=== PATIENT | male | born 1955 | race Caucasian/White ===

== ENCOUNTER 2019-11-16 10:36 | Outpatient (RCR) | payer MEDICARE, OTHER, SELFPAY ==
--- NOTE | 2019-11-16 18:43 | ONC CON_ITS ---
Dr. Valadez New Patient Note Patient: Inocencio Mata Unit #: [id number]: 1955 Dicatated By: Saud Valadez M.D.Date of Visit: Nov 16, 2019 Onc MED New Patient/Consult Referring Physician: Dr. Saud Carpenter Iii, M.D. Chief Complaint: Pancreatic cancer/pulmonary nodule. History of Present Illness: This is a 63-year-old man with adenocarcinoma involving the tail of the pancreas, stage at least T3, N1 by clinical evaluation. He also has CT evidence of a right upper lobe pulmonary nodule. He has hypertension, hyperlipidemia, and coronary artery disease. In the past he had required esophageal dilatation for esophageal stricture, and the procedure had recently been repeated at [facility] due to recurrence of difficulty swallowing. On 10/19/2019 he presented to the emergency room with fairly abrupt onset of severe pain in the left side of the abdomen and back. His abdominal CT scan showed a focal area of low-attenuation enlargement within the distal tail of the pancreas measuring 4.3 cm, consistent with acute pancreatitis or pancreatic neoplasm. There were findings compatible with splenic infarct, and there was suspected splenic vein thrombosis. Further evaluation with CT angiogram of the chest, abdomen, and pelvis showed a masslike low-attenuation lesion in the tail of the pancreas measuring 4.1 x 1.4 x 2.3 cm, felt to be most consistent with malignancy. Also noted were enlarged retrogastric, peripancreatic, and splenic hilar lymph nodes. A 1 cm focus of hyperattenuation in the liver was suggestive of possible metastasis. 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 The chest showed a spiculated noncalcified right upper lobe mass with eccentric cavitation measuring 1.7 x 0.9 x 2.0 cm, suspicious for malignancy. Calcified mediastinal and left hilar lymph nodes were consistent with prior granulomatous disease. He was referred to Dr. Carpenter in [place]. On 10/27/2019 he underwent ERCP by Dr. Jose New. A poorly demarcated 3 cm mass was noted in the pancreatic tail and several enlarged lymph nodes were noted in the periportal region. In aggregate these measured greater than 2.3 cm. FNA biopsy of the pancreatic mass did confirm adenocarcinoma. FNA biopsy of periportal lymph node was negative for metastatic carcinoma. In the context of the CT findings, he was recommended to undergo neoadjuvant chemotherapy prior to definitive surgery. He is seen now for further management. He has not been feeling good generally. He continues to have significant pain in the left flank area and in the left side of the back. He also has some pain in the lower mid abdomen. He has been managing it with either Tylenol or hydrocodone/APAP. He has had a significant decline in his energy/activity tolerance, and at this point he is doing very little work activity. ECOG score is 2. He complains that he has no appetite and that he is making himself eat. He has had a weight loss of 30 pounds since summer. He has occasional fever at night, up to 101 degrees. He sometimes has sweating at night, though he otherwise always feels cold. His swallowing is somewhat better following his recent dilatation procedure, but not completely normal. He has occasional cough. He does not complain of shortness of breath or chest pain. He has mild nausea at times and he also complains of postprandial bloating. He recently has been having some constipation. He has no complaints with bladder function. He has no significant joint or bone pain. He does have a history of severe headaches, but those have been managed with a combination of topiramate and meloxicam. He does get numbness in his left hand with cold exposure. He has no other focal neurologic symptoms. Past Medical History: His medical history includes coronary artery disease, gout, hyperlipidemia, hypertension, and migraine headaches. He has a history of esophageal stricture. Past Surgical History: He underwent ERCP with FNA biopsy of pancreatic mass and periportal lymph node on 10/27/2019, and he underewent placement of Port-A-Cath venous access device. He underwent coronary angioplasty/stent placement in 2006. Medications: Allopurinol 1 Tablet (of 100 mg) Oral daily, Eliquis 1 Tablet (of 5 mg) Oral b.i.d., HYDROcodone-Acetaminophen 1 Tablet (of 5-325 mg) Oral q 6 hours PRN, Lisinopril 1 Tablet (of 40 mg) Oral daily, Meloxicam 1 Tablet (of 15 mg) Oral daily, Metoprolol Tartrate 1 Tablet (of 50 mg) Oral daily, Ondansetron HCl 1 Tablet (of 4 mg) Oral PRN, Simvastatin 1 Tablet (of 40 mg) Oral daily, tiZANidine HCl 1 Tablet (of 4 mg) Oral PRN, Topiramate 1 Tablet (of 100 mg) Oral b.i.d. Allergies: No Known Allergies. Social History: Mr. 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 He has a history of smoking 1 pack of cigarettes daily for 50 years. Alcohol use is estimated at 2 beers daily. He was a heavy drinker in the past, but he cut down years ago . Family History: Father was found at age 91, thought to be heart related. He had been treated for lung cancer. His mother had Hodgkin's lymphoma in association with rheumatoid arthritis. She of unrelated causes. A brother at age 38, also presumably of heart disease. Another brother has been treated for colon cancer. A maternal aunt has breast cancer. Review Of Symptoms: Constitutional - His energy is low. 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 His appetite is poor and his weight is stable. He has occasional fevers. He has hot flashes and sweating at night. ECOG score is 2, Eyes - No change in vision, ENMT - He is hard of hearing. He has tinnitus. No sinus congestion/drainage. No mouth sores. No sore throat. He has trouble with food getting caught, especially meat, Hematologic/Lymphatic - He bruises easily, Respiratory - No shortness of breath. No cough. No pleuritic pain or hemoptysis, Cardiovascular - No angina pain. No palpitations, Gastrointestinal - He feels bloated and queasy after eating. No heartburn or acid reflux. He has some constipation. No blood in the stool or black stools. He has pain in the lower part of his abdomen, Genitourinary (M) - No dysuria or hematuria. He has urinary frequency. No urgency or incontinence, Musculoskeletal - He has pain in his lower back on the left side, Integumentary - No skin complications, Neurologic - He has a history of severe headaches. No dizziness. He has numbness in his left hand when he gets out in the cold, Psychiatric - He has anxiety and depression. No insomnia. Vital Signs: Performed on Nov 16, 2019 11:22: 2, 20.59, 1.73 sq.m, 68.00 in, 96 %, 69 /min, 22 /min, 168/97 mm(hg) (HIGH), 98.0 F (LOW), and 135.4 lbs (HIGH). Physical Examination: Constitutional - He appears somewhat weak generally, Eyes - Sclerae nonicteric. Conjunctivae clear, ENMT - No lesions noted in the oral cavity, Neck - No mass or thyromegaly, Hematologic/Lymphatic - No cervical, clavicular, or axillary adenopathy, Respiratory - Lungs are clear with diminished air movement bilaterally, Cardiovascular - Heart rhythm is regular. There is no murmur, gallop, or rub noted. There is no carotid bruit noted, Abdomen - Soft with mild tenderness in the mid to lower abdomen. Liver is not enlarged. Spleen is not palpable. There is no abdominal mass or ascites noted and there is no inguinal adenopathy, Back/Spine - No spine or CVA tenderness noted, Extremities - No edema. Pedal pulses are palpable bilaterally. There is a diminished left radial pulse on the left compared to the right, Integumentary - No rashes. No suspicious skin lesions noted, Neurologic - No focal neurologic deficits noted. Lab/Imaging: His laboratory studies from 10/19/2019 included CBC showing hemoglobin 17.5 g, white blood cell count 11,600, and platelet count 290,000. Comprehensive metabolic profile showed normal renal function with BUN 12 and creatinine 0.8 mg/dL. Bilirubin was borderline at 1.1 mg/dL. Liver enzymes were normal. Albumin was normal at 4.2 g/dL. Impression: 1. Patient with adenocarcinoma involving the tail of the pancreas, confirmed by FNA biopsy on 10/27/2019. By clinical evaluation his disease appears to be at least stage T3, N1, though FNA biopsy of periportal lymph node was negative. 2. 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 3. There is CT evidence of a right upper lobe spiculated pulmonary nodule, which is suspicious for neoplasm, but more likely second primary neoplasm rather than metastasis. 4. There is also a possible hepatic metastasis by CT. 5. He has marginal performance status with weight loss and declining activity tolerance. His other medical illnesses include: 6. Hypertension. 7. Hyperlipidemia. 8. Coronary artery disease with previous angioplasty/stent placement. 9. History of gout. 10. History of esophageal stricture with recent EGD/dilatation procedure. Plan: The CT findings and images were reviewed with the patient and his , and we also reviewed the biopsy results. We discussed the clinical implications. He has biopsy-proven adenocarcinoma involving the tail of the pancreas. There is likely regional lymph node involvement, though it was not able to be confirmed by biopsy. There is a possible metastatic lesion in the liver and there is a right upper lobe pulmonary nodule which appears neoplastic, but would more likely be a second primary malignancy rather than a metastasis, in my opinion. 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 He has been recommended to begin neoadjuvant chemotherapy. Given his marginal performance status, he is clearly not an appropriate candidate for the FOLFIRINOX regimen. As such, I will plan an initial course of treatment with 4 cycles of gemcitabine/Abraxane. I reviewed anticipated side effects including the potential for nausea/vomiting, fatigue, alopecia, low blood counts, and neuropathy, among others. However, prior to starting treatment I would like to schedule him for staging PET/CT. I also will want to check a baseline echocardiogram. In addition, I will request a next generation sequencing study on the biopsy, and I also will request screening for BRCA, subject to verification of insurance coverage. Signed By: Saud Valadez M.D. <<Signature on File>>
== END 2019-12-06 12:26 | disposition home or self-care (01) ==
LOC: ONCMED 10:36
PROVIDERS: Family Provider Family Medicine; PCP Family Medicine; Visit Provider Internal Medicine Medical Oncology
DX: C25.2 Malignant neoplasm of tail of pancreas (principal); R91.8 Other nonspecific abnormal finding of lung field; I70.8 Atherosclerosis of other arteries; I74.8 Embolism and thrombosis of other arteries; G89.3 Neoplasm related pain (acute) (chronic); K59.00 Constipation, unspecified; E78.5 Hyperlipidemia, unspecified; I10 Essential (primary) hypertension; M10.9 Gout, unspecified; I25.10 Atherosclerotic heart disease of native coronary artery without angina pectoris; F17.210 Nicotine dependence, cigarettes, uncomplicated; Z72.89 Other problems related to lifestyle; G43.709 Chronic migraine without aura, not intractable, without status migrainosus; Z79.891 Long term (current) use of opiate analgesic; Z79.01 Long term (current) use of anticoagulants; Z95.5 Presence of coronary angioplasty implant and graft
CPT/HCPCS: 99205

== ENCOUNTER 2019-11-22 08:56 | Outpatient (RCR) | payer MEDICARE, OTHER, SELFPAY ==
--- NOTE | 2019-11-22 08:45 | USCV_ITS ---
Adolfo Inocencio Age: 63 Gender: M : 1955 Exam Date: 11/22/2019 09:17 Ordering Phys: Saud Valadez MD Technologist: Lucinda Price [place] [facility] [place]: ASSESS LVF, PANCREATIC CA, HIGH RISK MEDS. BP: 164 / 73 HR: 48 Rhythm: Sinus Technical Quality: Suboptimal MEASUREMENTS (Male / Female) Normal Values 2D ECHO LV Diastolic Diameter PLAX 4.5 cm 4.2 - 5.9 / 3.9 - 5.3 cm LV Systolic Diameter PLAX 3.0 cm IVS Diastolic Thickness 0.8 cm 0.6 - 1.0 / 0.6 - 0.9 cm IVS Systolic Thickness 1.3 cm LVPW Diastolic Thickness 1.0 cm 0.6 - 1.0 / 0.6 - 0.9 cm LVPW Systolic Thickness 1.5 cm LVOT Diameter 2.1 cm LV Ejection Fraction 2D Teich 61.2 % LV Ejection Fraction MOD 2C 58.5 % LV Ejection Fraction 2C AL 61.1 % LA Diameter 2.8 cm LA Width 2.5 cm LA Height 4.0 cm RA Width 2.6 cm RA Height 4.2 cm Aorta at Sinotubular Diameter 3.2 cm M-MODE LV Diastolic Diameter MM 5.4 cm 4.2 - 5.9 / 3.9 - 5.3 cm LV Systolic Diameter MM 3.4 cm LV Ejection Fraction MM Teich 66.2 % IVS Diastolic Thickness MM 1.0 cm 0.6 - 1.0 / 0.6 - 0.9 cm IVS Systolic Thickness MM 1.5 cm LVPW Diastolic Thickness MM 0.8 cm 0.6 - 1.0 / 0.6 - 0.9 cm LVPW Systolic Thickness MM 1.5 cm Aortic Annulus Diameter 3.7 cm LA Ao Ratio MM 0.8 MV E Point Septal Separation 0.5 cm DOPPLER AV Peak Velocity 102.0 cm/s LVOT Peak Velocity 67.0 cm/s AV Area Cont Eq vti 2.2 cm squared AV Area Cont Eq pk 2.2 cm squared MV Area PHT 2.9 cm squared Mitral E to A Ratio 0.8 MV E' Velocity 10.0 cm/s Mitral E to MV E' Ratio 9.5 Mitral E to LV E' Lateral Ratio 8.3 Mitral E to LV E' Septal Ratio 11.1 TV Peak E Velocity 46.0 cm/s Right Atrial Pressure 3.0 mmHg PV Peak Velocity 101.0 cm/s RV Acceleration Time 0.1 s RV Ejection Time 0.3 s RV AcT/ET 0.4 FINDINGS Left Ventricle Normal left ventricular size, systolic function and wall thickness, with no diagnostic regional wall motion abnormalities. Left ventricular ejection fraction is estimated at 60-65 %. Normal diastolic function. Right Ventricle Normal right ventricular size and systolic function. Right Atrium Normal right atrial size. Right atrial pressure estimated at 3 mmHg. Left Atrium Normal left atrial size. Mitral Valve Structurally normal mitral valve. No mitral valve stenosis. No significant mitral valve regurgitation. Aortic Valve Structurally normal trileaflet aortic valve. No aortic valve stenosis. Mild aortic valve regurgitation. Tricuspid Valve Structurally normal tricuspid valve. Trace tricuspid valve regurgitation. Pulmonic Valve Pulmonic valve not well visualized. No pulmonary valve stenosis. No significant pulmonary valve regurgitation. Pericardium No pericardial effusion. Aorta Normal-sized aortic root. CONCLUSIONS 1. This is a technically difficult study. 2. Normal left ventricular size, systolic function and wall thickness, with no regional wall motion abnormalities. Left ventricular ejection fraction is estimated at 60-65 %. Normal diastolic function. 3. Normal right ventricular size and systolic function. 4. Right atrial pressure estimated at 3 mmHg. 4. Mild aortic valve regurgitation. 5. When compared to previous echocardiogram dated 12/23/2018, there may not have been any significant change. Vonda Webster MD (Electronically Signed) Final Date: 22 November 2019 19:38 S
== END 2019-12-06 12:26 | disposition home or self-care (01) ==
LOC: RAD 08:56
PROVIDERS: Family Provider Family Medicine; PCP Family Medicine; Visit Provider Internal Medicine Medical Oncology
DX: C25.2 Malignant neoplasm of tail of pancreas (principal); Z79.899 Other long term (current) drug therapy
CPT/HCPCS: 93306

== ENCOUNTER 2019-12-14 05:41 | Outpatient (RCR) | payer MEDICARE, OTHER, SELFPAY ==
[2019-11-23 10:04] LABS: Basophils % 0.4 %; Eosinophils # 0.4 10^3/uL (0.0-0.8); Eosinophils % 3.8 %; Hematocrit 44.6 % (42.0-52.0); Hemoglobin 14.6 g/dL (11.7-16.6); Lymphocytes # 2.4 10^3/uL (0.8-4.8); Lymphocytes % 21.2 %; Mean Corpuscular HGB Conc 32.7 g/dL (30.0-36.0); Mean Corpuscular Hemoglobin 33.8 pg (28.0-34.0); Mean Corpuscular Volume 103.2 fL (80-94); Mean Platelet Volume 10.3 fL (7.4-10.4); Monocytes # 1.1 10^3/uL (0.2-0.9); Monocytes % 9.5 %; Neutrophils # 7.3 10^3/uL (1.8-7.7); Neutrophils % 64.7 %; Nucleated Red Blood Cells % 0 %; Platelet Count 464 10^3/cmm (130-400); Red Blood Count 4.32 10^6/uL (4.1-5.3); Red Cell Distribution Width 13.4 % (12.1-15.1); White Blood Count 11.2 10^3/uL (4.0-10.0)
[2019-11-23 10:31] LABS: Cancer Antigen 19 9 34.94 U/mL (0-35); Carcinoembryonic Antigen 3.5 ng/mL (0.0-4.7)
[2019-11-23 10:42] LABS: Alanine Aminotransferase 10 U/L (0-41); Albumin Level 3.8 g/dL (3.5-5.2); Alkaline Phosphatase 74 IU/L (40-130); Anion Gap 14.9 (5-19); Aspartate Amino Transferase 14 U/L (0-40); Blood Urea Nitrogen 14 mg/dL (8-23); Calcium 9.2 mg/Dl (8.8-10.2); Carbon Dioxide 22 mmol/L (22-29); Chloride 107 mmol/L (98-107); Globulin 2.7 g/dL (1.3-4.6); Glomerular Filtration Rate 113.2 mL/min (90-130); Glucose 96 mg/dL (74-106); Potassium 3.9 mmol/L (3.5-5.1); Sodium 140 mmol/L (136-145); Total Bilirubin 0.5 mg/dL (0.15-1.2); Total Protein 6.5 g/dL (6.6-8.7)
[2019-11-23] MEDS: sodium chloride 0.9% 250 ML 75 ML IV (11:15)
[2019-11-28 13:33] LABS: Basophils % 0.3 %; Eosinophils # 0.1 10^3/uL (0.0-0.8); Eosinophils % 1.6 %; Hematocrit 41.4 % (42.0-52.0); Hemoglobin 13.6 g/dL (11.7-16.6); Lymphocytes # 0.7 10^3/uL (0.8-4.8); Lymphocytes % 18.7 %; Mean Corpuscular HGB Conc 32.9 g/dL (30.0-36.0); Mean Corpuscular Hemoglobin 32.7 pg (28.0-34.0); Mean Corpuscular Volume 99.5 fL (80-94); Monocytes % 0.5 %; Neutrophils % 78.6 %; Nucleated Red Blood Cells % 0 %; Platelet Count 282 10^3/cmm (130-400); Red Blood Count 4.16 10^6/uL (4.1-5.3); Red Cell Distribution Width 13.3 % (12.1-15.1); White Blood Count 3.9 10^3/uL (4.0-10.0)
[2019-11-28 13:47] LABS: Alanine Aminotransferase 37 U/L (0-41); Albumin Level 3.8 g/dL (3.5-5.2); Alkaline Phosphatase 65 IU/L (40-130); Anion Gap 16.1 (5-19); Aspartate Amino Transferase 36 U/L (0-40); Blood Urea Nitrogen 15 mg/dL (8-23); Calcium 9.4 mg/Dl (8.8-10.2); Carbon Dioxide 23 mmol/L (22-29); Chloride 102 mmol/L (98-107); Globulin 2.7 g/dL (1.3-4.6); Glucose 129 mg/dL (74-106); Potassium 4.1 mmol/L (3.5-5.1); Sodium 137 mmol/L (136-145); Total Bilirubin 0.9 mg/dL (0.15-1.2); Total Protein 6.5 g/dL (6.6-8.7)
[2019-11-28 15:26] LABS: Slide Review Slide Review Perform
[2019-11-30] MEDS: sodium chloride 0.9% 250 ML 75 ML IV (15:17)
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
[2019-12-06 12:25] LABS: Basophils % 0.6 %; Eosinophils % 2.6 %; Hematocrit 41.1 % (42.0-52.0); Hemoglobin 13.6 g/dL (11.7-16.6); Lymphocytes % 66.9 %; Mean Corpuscular HGB Conc 33.1 g/dL (30.0-36.0); Mean Corpuscular Hemoglobin 33.4 pg (28.0-34.0); Mean Platelet Volume 12.2 fL (7.4-10.4); Monocytes % 0.6 %; Neutrophils % 28.7 %; Nucleated Red Blood Cells % 0 %; Platelet Count 87 10^3/cmm (130-400); Red Blood Count 4.07 10^6/uL (4.1-5.3); Red Cell Distribution Width 12.8 % (12.1-15.1); White Blood Count 1.5 10^3/uL (4.0-10.0)
[2019-12-06 13:43] LABS: Neutrophils # 0.4 10^3/uL (1.8-7.7)
[2019-12-06 14:05] LABS: Alanine Aminotransferase 19 U/L (0-41); Albumin Level 3.3 g/dL (3.5-5.2); Alkaline Phosphatase 59 IU/L (40-130); Anion Gap 17.4 (5-19); Aspartate Amino Transferase 16 U/L (0-40); Blood Urea Nitrogen 19 mg/dL (8-23); Calcium 9.3 mg/Dl (8.8-10.2); Carbon Dioxide 22 mmol/L (22-29); Chloride 103 mmol/L (98-107); Globulin 3.1 g/dL (1.3-4.6); Glomerular Filtration Rate 113.2 mL/min (90-130); Glucose 107 mg/dL (74-106); Potassium 3.4 mmol/L (3.5-5.1); Sodium 139 mmol/L (136-145); Total Bilirubin 0.9 mg/dL (0.15-1.2); Total Protein 6.4 g/dL (6.6-8.7)
[2019-12-08 10:11] LABS: Basophils # 0.1 10^3/uL (0.0-0.1); Basophils % 0.7 %; Eosinophils # 0.1 10^3/uL (0.0-0.8); Eosinophils % 1.4 %; Hematocrit 35.5 % (42.0-52.0); Lymphocytes # 1.5 10^3/uL (0.8-4.8); Lymphocytes % 15.2 %; Mean Corpuscular HGB Conc 33.8 g/dL (30.0-36.0); Mean Corpuscular Volume 97.5 fL (80-94); Mean Platelet Volume 11.7 fL (7.4-10.4); Monocytes # 0.3 10^3/uL (0.2-0.9); Monocytes % 3.2 %; Neutrophils # 7.5 10^3/uL (1.8-7.7); Neutrophils % 77.4 %; Nucleated Red Blood Cells % 0 %; Platelet Count 56 10^3/cmm (130-400); Red Blood Count 3.64 10^6/uL (4.1-5.3); Red Cell Distribution Width 12.5 % (12.1-15.1); White Blood Count 9.7 10^3/uL (4.0-10.0)
[2019-12-08 10:51] LABS: Slide Review Slide Review Perform
[2019-12-13 10:52] LABS: Basophils # 0.1 10^3/uL (0.0-0.1); Basophils % 0.5 %; Eosinophils # 0.4 10^3/uL (0.0-0.8); Hematocrit 35.5 % (42.0-52.0); Hemoglobin 11.6 g/dL (11.7-16.6); Lymphocytes % 25.1 %; Mean Corpuscular HGB Conc 32.7 g/dL (30.0-36.0); Mean Corpuscular Volume 101.1 fL (80-94); Mean Platelet Volume 11.2 fL (7.4-10.4); Monocytes # 1.4 10^3/uL (0.2-0.9); Monocytes % 11.7 %; Neutrophils # 3.9 10^3/uL (1.8-7.7); Nucleated Red Blood Cells # 0.1 /100WBC; Platelet Count 500 10^3/cmm (130-400); Red Blood Count 3.51 10^6/uL (4.1-5.3); Red Cell Distribution Width 13.8 % (12.1-15.1); White Blood Count 12.1 10^3/uL (4.0-10.0)
[2019-12-13 11:13] LABS: Alanine Aminotransferase 11 U/L (0-41); Alkaline Phosphatase 79 IU/L (40-130); Anion Gap 12.8 (5-19); Aspartate Amino Transferase 18 U/L (0-40); Blood Urea Nitrogen 13 mg/dL (8-23); Calcium 8.9 mg/dL (8.5-10.5); Carbon Dioxide 26 mmol/L (22-29); Chloride 105 mmol/L (98-107); Globulin 3.3 g/dL (1.3-4.6); Glomerular Filtration Rate 55.4 mL/min (90-130); Glucose 109 mg/dL (74-106); Potassium 3.8 mmol/L (3.5-5.1); Sodium 140 mmol/L (136-145); Total Bilirubin 0.2 mg/dL (0.15-1.2); Total Protein 6.3 g/dL (6.6-8.7)
[2019-12-13 11:40] LABS: Slide Review Slide Review Perform
[2019-12-13 11:42] LABS: Absolute Eosinophils 0.2 10^3/cmm (0.0-0.7); Absolute Segmented Neutrophil 3.1 10/cmm (1.6-7.1); Band Neutrophils Absolute 2.2 10^3/cmm (0.0-1.2); Corrected White Blood Count 11.6 10^3/cmm (4.8-10.8); Eosinophils 2 %; Lymphocytes 28 %; Platelet Estimate Increased (Normal); Segmented Neutrophils 26 %; Total Cells Counted 100 (0-100)
[2019-12-14 12:44] LABS: Basophils # 0.1 10^3/uL (0.0-0.1); Basophils % 0.5 %; Eosinophils # 0.5 10^3/uL (0.0-0.8); Eosinophils % 3.6 %; Hemoglobin 11.4 g/dL (11.7-16.6); Lymphocytes # 3.3 10^3/uL (0.8-4.8); Lymphocytes % 24.6 %; Mean Corpuscular HGB Conc 33.5 g/dL (30.0-36.0); Mean Corpuscular Hemoglobin 33.3 pg (28.0-34.0); Mean Corpuscular Volume 99.4 fL (80-94); Mean Platelet Volume 10.7 fL (7.4-10.4); Monocytes # 1.3 10^3/uL (0.2-0.9); Neutrophils # 6.2 10^3/uL (1.8-7.7); Nucleated Red Blood Cells % 0.2 %; Platelet Count 640 10^3/cmm (130-400); Red Blood Count 3.42 10^6/uL (4.1-5.3); White Blood Count 13.2 10^3/uL (4.0-10.0)
[2019-12-14 12:58] LABS: Alanine Aminotransferase 9 U/L (0-41); Albumin Level 2.9 g/dL (3.5-5.2); Alkaline Phosphatase 75 IU/L (40-130); Anion Gap 14.1 (5-19); Aspartate Amino Transferase 15 U/L (0-40); Blood Urea Nitrogen 14 mg/dL (8-23); Calcium 8.8 mg/dL (8.5-10.5); Carbon Dioxide 24 mmol/L (22-29); Chloride 108 mmol/L (98-107); Globulin 3.3 g/dL (1.3-4.6); Glomerular Filtration Rate 84.7 mL/min (90-130); Glucose 111 mg/dL (74-106); Potassium 4.1 mmol/L (3.5-5.1); Sodium 142 mmol/L (136-145); Total Bilirubin 0.2 mg/dL (0.15-1.2); Total Protein 6.2 g/dL (6.6-8.7)
[2019-12-14 13:51] LABS: Slide Review Slide Review Perform
[2019-12-14] MEDS: sodium chloride 0.9% 250 ML 75 ML IV (13:55)
== END 2019-12-15 23:59 | disposition home or self-care (01) ==
LOC: ONCMED 05:41
PROVIDERS: Nurse Practitioner; Family Provider Family Medicine; PCP Family Medicine; Visit Provider Internal Medicine Medical Oncology
DX: Z51.11 Encounter for antineoplastic chemotherapy (principal); C25.2 Malignant neoplasm of tail of pancreas; D70.1 Agranulocytosis secondary to cancer chemotherapy; T45.1X5A Adverse effect of antineoplastic and immunosuppressive drugs, initial encounter; R50.9 Fever, unspecified; R91.1 Solitary pulmonary nodule; I10 Essential (primary) hypertension; E78.5 Hyperlipidemia, unspecified; I25.10 Atherosclerotic heart disease of native coronary artery without angina pectoris; M10.9 Gout, unspecified; F17.210 Nicotine dependence, cigarettes, uncomplicated; F10.20 Alcohol dependence, uncomplicated; I35.1 Nonrheumatic aortic (valve) insufficiency; Z79.01 Long term (current) use of anticoagulants; Z95.5 Presence of coronary angioplasty implant and graft
CPT/HCPCS: 36415; 36591; 80053; 82378; 85007; 85025; 86301; 96367; 96372; 96413; 96417; 99214; J1100; J1442; J2405; J2469; J2704; J3490; J7050; J9201; J9264

== ENCOUNTER 2020-01-10 07:05 | Outpatient (RCR) | payer MEDICARE, OTHER, SELFPAY ==
[2019-12-20 14:05] LABS: Basophils % 0.6 %; Eosinophils # 0.1 10^3/uL (0.0-0.8); Eosinophils % 1.2 %; Hemoglobin 11.4 g/dL (11.7-16.6); Mean Corpuscular HGB Conc 32.6 g/dL (30.0-36.0); Mean Corpuscular Hemoglobin 33.6 pg (28.0-34.0); Mean Corpuscular Volume 103.2 fL (80-94); Monocytes # 0.2 10^3/uL (0.2-0.9); Neutrophils # 3.8 10^3/uL (1.8-7.7); Neutrophils % 75.6 %; Nucleated Red Blood Cells % 0 %; Platelet Count 425 10^3/cmm (130-400); Red Blood Count 3.39 10^6/uL (4.1-5.3); Red Cell Distribution Width 14.3 % (12.1-15.1)
[2019-12-20 15:22] LABS: Alanine Aminotransferase 23 U/L (0-41); Albumin Level 3.1 g/dL (3.5-5.2); Alkaline Phosphatase 67 IU/L (40-130); Anion Gap 15.6 (5-19); Aspartate Amino Transferase 28 U/L (0-40); Blood Urea Nitrogen 18 mg/dL (8-23); Calcium 9.1 mg/dL (8.5-10.5); Carbon Dioxide 24 mmol/L (22-29); Chloride 102 mmol/L (98-107); Globulin 3.1 g/dL (1.3-4.6); Glomerular Filtration Rate 96.7 mL/min (90-130); Glucose 87 mg/dL (65-115); Potassium 4.6 mmol/L (3.5-5.1); Sodium 137 mmol/L (136-145); Total Bilirubin 0.5 mg/dL (0.15-1.2); Total Protein 6.2 g/dL (6.6-8.7)
[2019-12-20 15:50] LABS: Slide Review Slide Review Perform
--- NOTE | 2019-12-24 20:50 | ONC FU_ITS ---
[facility] Patient Note Patient: Inocencio Mata Unit #: [id number]: [id number] Dictated By: Alyse MirzaDate of Visit: Dec 21, 2019 Onc MED Follow-Up/Prog Note Chief Complaint: Pancreatic cancer/pulmonary nodule. History of Present Illness: Mr Mata is a 63-year-old man with adenocarcinoma involving the tail of the pancreas, stage at least T3, N1 by clinical evaluation. He also has CT evidence of a right upper lobe pulmonary nodule. He has hypertension, hyperlipidemia, and coronary artery disease. In the past he had required esophageal dilatation for esophageal stricture, and the procedure had recently been repeated at [facility] due to recurrence of difficulty swallowing. On 10/19/2019 he presented to the emergency room with fairly abrupt onset of severe pain in the left side of the abdomen and back. His abdominal CT scan showed a focal area of low-attenuation enlargement within the distal tail of the pancreas measuring 4.3 cm, consistent with acute pancreatitis or pancreatic neoplasm. There were findings compatible with splenic infarct, and there was suspected splenic vein thrombosis. Further evaluation with CT angiogram of the chest, abdomen, and pelvis showed a masslike low-attenuation lesion in the tail of the pancreas measuring 4.1 x 1.4 x 2.3 cm, felt to be most consistent with malignancy. Also noted were enlarged retrogastric, peripancreatic, and splenic hilar lymph nodes. A 1 cm focus of hyperattenuation in the liver was suggestive of possible metastasis. 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 The chest showed a spiculated noncalcified right upper lobe mass with eccentric cavitation measuring 1.7 x 0.9 x 2.0 cm, suspicious for malignancy. Calcified mediastinal and left hilar lymph nodes were consistent with prior granulomatous disease. He was referred to Dr. Carpenter in [place]. On 10/27/2019 he underwent ERCP by Dr. Jose New. A poorly demarcated 3 cm mass was noted in the pancreatic tail and several enlarged lymph nodes were noted in the periportal region. In aggregate these measured greater than 2.3 cm. FNA biopsy of the pancreatic mass did confirm adenocarcinoma. FNA biopsy of periportal lymph node was negative for metastatic carcinoma. In the context of the CT findings, he was recommended to undergo neoadjuvant chemotherapy prior to definitive surgery. Mr Mata was seen by Dr Valadez and offered treatment with weekly Abraxane/gemcitabine. He began his first cycle on 11/23/2019. He is here today for followup. He is due to start cycle 2 day 1. He states overall he feels like he is doing well. His appetite is good. His energy is fair. He is able to get out and do the things that he needs to do as he is previously been very active. He states that he has had no nausea or vomiting. He states on day 4 of this cycle he felt kind of washed out and weak. He states that this happened with the first cycle but did improve with the steroids. However he did not take the steroid taper with his last treatment. He states he did having problems with them he just did not think to take them. He denies any new pain. He states his bowels are normal for him. He denies any neuropathy. He has had no vision changes or hearing changes. He denies any fever or chills. His ECOG is 1. Past Medical History: Coronary artery disease Gout History of esophageal stricture Hyperlipidemia Hypertension Migraine headaches Past Surgical History: ERCP with FNA biopsy of pancreatic mass and periportal lymph node in 2019 Placement of Port-A-Cath venous access device in 2019 Coronary angioplasty/stent placement in 2006 Allergies: No Known Allergies. Medications: Allopurinol 1 Tablet (of 100 mg) Oral daily HYDROcodone-Acetaminophen 1 Tablet (of 5-325 mg) Oral q 6 hours PRN Levaquin 1 Tablet (of 500 mg) Oral daily for 7 days Lisinopril 1 Tablet (of 40 mg) Oral daily Meloxicam 1 Tablet (of 15 mg) Oral daily Metoprolol Tartrate 1 Tablet (of 50 mg) Oral daily Ondansetron HCl 1 Tablet (of 4 mg) Oral PRN Simvastatin 1 Tablet (of 40 mg) Oral daily tiZANidine HCl 1 Tablet (of 4 mg) Oral PRN Topiramate 1 Tablet (of 100 mg) Oral b.i.d. Family History: Mr. Mata's mother at age 91: heart disease, and cancer of unknown primary. Mr. Mata's father at age 91: myocardial infarction. Mr. Mata's maternal grandmother is . Mr. Mata has 1 brother who is alive: colon cancer. Father was found at age 91, thought to be heart related. He had been treated for lung cancer. His mother had Hodgkin's lymphoma in association with rheumatoid arthritis. She of unrelated causes. A brother at age 38, also presumably of heart disease. Another brother has been treated for colon cancer. A maternal aunt has breast cancer. 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 He is a daily smoker who has smoked 1.0 pack/day for 51 years. He drinks daily. He consumes 2 drinks/day 7 days/week. He has indicated exposure to the following products: cigarettes. Mr. Mata reports the following support systems: lives with spouse, significant other, family, or friends, lives in own house, supportive family/friends willing to assist with needs, and adequate transportation available for expected visits. His diet consists of regular meals. He indicates his activity level as: regular exercise. He has a history of smoking 1 pack of cigarettes daily for 50 years. Alcohol use is estimated at 2 beers daily. He was a heavy drinker in the past, but he cut down years ago . Review Of Symptoms: Constitutional Denies night sweats, excessive fatigue. He states he has had some fatigue and fever???see above. Allergic/Immunologic No reactions. Eyes Denies significant visual changes. No diplopia. No amaurosis. ENMT Denies changes in hearing, sore throat, mouth sores, difficulty or changes in swallowing ability, and/or sinus drainage. Hematologic/Lymphatic Denies easy bruising or bleeding. The patient denies any tender or palpable lymph nodes. Respiratory Denies dyspnea on exertion, chest pain, cough or hemoptysis. Denies orthopnea. Cardiovascular Denies anginal chest pain, palpitations or orthopnea. Gastrointestinal Denies nausea, vomiting, diarrhea, GI bleeding, or constipation. Denies change in bowel habits and/or stool color, no heartburn or early satiety. Genitourinary (M) Denies hematuria, dysuria, increased frequency, urgency, hesitancy or incontinence. Musculoskeletal Denies joint pain, swelling or redness. No decreased range of motion. Integumentary Denies chronic rashes, inflammation, ulcerations or skin changes. Neurologic Denies headache, blurred vision, and no areas of focal weakness or numbness. Normal gait. No sensory problems. Psychiatric Denies insomnia, depression, debbie or mood swings. Vital Signs: Performed on Dec 21, 2019 14:06 Height - 68.00 in Weight - 134.2 lbs (HIGH) BSA - 1.73 sq.m BMI - 20.41 Temperature - 97.1 F (LOW) Pulse - 53 /min (LOW) Respiration - 20 /min BP - 119/63 mm(hg) O2 Sat - 96 % Pain - 1,1 - No physically strenuous activity, but ambulatory and able to carry out light or sedentary work (e.g. office work, light house work). (ECOG) Physical Examination: Constitutional Alert, oriented, no acute distress. Skin pink, warm and dry. Head Normocephalic; atraumatic. Eyes Conjunctivae and sclerae are clear and without icterus. Pupils are reactive and equal. ENMT No oral exudates, ulcers, masses, thrush or mucositis. Oropharynx clear. Tongue normal. Neck Supple without masses or thyromegaly. No jugular venous distension. Hematologic/Lymphatic No petechiae or purpura. No tender or palpable lymph nodes in the cervical or supraclavicular areas. Respiratory Lungs are clear to auscultation without rhonchi or wheezing. Cardiovascular Regular rate and rhythm of heart without murmurs,clicks, gallops or rubs. Abdomen Non-tender, non-distended, no masses or ascites. Good bowel sounds noted in all quads. No guarding or rebound tenderness. No pulsatile masses. Back/Spine Non-tender to palpation. Extremities No visible deformities, no cyanosis, clubbing or edema. Musculoskeletal No tenderness or swelling, normal range of motion without obvious weakness. Integumentary No rashes or lesions. Neurologic No sensory or motor deficits, normal cerebellar function, normal gait. Psychiatric Alert and oriented times three. Coherent speech. Verbalizes understanding of our discussions today. Laboratory:Test performed on Dec 20, 2019 07:50 Sodium 137 mmol/L Potassium 4.6 mmol/L Chloride 102 mmol/L CO2 24 mmol/L Anion Gap 15.6 BUN 18 mg/dL Creatinine 0.8 mg/dL Cr Clearance (Est) 78.9000 mL/min eGFR 96.7 mL/min Glucose 87 mg/dL Calcium 9.1 mg/dL Protein, Total 6.2 g/dL Albumin 3.1 g/dL Globulin 3.1 g/dL Bilirubin, Total 0.5 mg/dL ALT (SGPT) 23 U/L AST (SGOT) 28 U/L Alkaline Phosphatase 67 IU/L WBC 5.0 10 3/uL RBC 3.39 10 6/uL HGB 11.4 g/dL HCT 35.0 % MCV 103.2 fL MCH 33.6 pg MCHC 32.6 g/dL RDW 14.3 % Platelet Count 425 10 3/cmm MPV 11.0 fL Neutrophils 3.8 10 3/uL Lymphocytes 1.0 10 3/uL Monocytes 0.2 10 3/uL Eosinophils 0.1 10 3/uL Basophils 0.0 10 3/uL Neutrophil % 75.6 % Lymphocyte % 19.0 % Monocyte % 3.0 % Eosinophil % 1.2 % Basophils % 0.6 % CBC Slide Review Slide Review Perform Test performed on Nov 28, 2019 11:50 Manual Lymphocytes 18.7 % Manual Monocytes 0.5 % Manual Eosinophils 1.6 % Manual Basophils 0.3 % Test performed on Nov 23, 2019 09:48 CA 19-9 34.94 Units/mL CEA 3.5 ng/mL Impression: 1. Patient with adenocarcinoma involving the tail of the pancreas, confirmed by FNA biopsy on 10/27/2019. By clinical evaluation his disease appears to be at least stage T3, N1, though FNA biopsy of periportal lymph node was negative. 2. 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 3. There is CT evidence of a right upper lobe spiculated pulmonary nodule, which is suspicious for neoplasm, but more likely second primary neoplasm rather than metastasis. 4. There is also a possible hepatic metastasis by CT. 5. He has marginal performance status with weight loss and declining activity tolerance. His other medical illnesses include: 6. Hypertension. 7. Hyperlipidemia. 8. Coronary artery disease with previous angioplasty/stent placement. 9. History of gout. 10. History of esophageal stricture with recent EGD/dilatation procedure. The CT findings and images were reviewed with the patient and his , along with the biopsy results per Dr Valadez. He also discussed the clinical implications. He has biopsy-proven adenocarcinoma involving the tail of the pancreas. There is likely regional lymph node involvement, though it was not able to be confirmed by biopsy. There is a possible metastatic lesion in the liver and there is a right upper lobe pulmonary nodule which appears neoplastic, but would more likely be a second primary malignancy rather than a metastasis, in my opinion. 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 He has been recommended to begin neoadjuvant chemotherapy. Given his marginal performance status, he was clearly not an appropriate candidate for the FOLFIRINOX regimen. As such, he was offered a course of treatment with 4 cycles of gemcitabine/Abraxane. We have reviewed anticipated side effects including the potential for nausea/vomiting, fatigue, alopecia, low blood counts, and neuropathy, among others. In addition, Dr Valadez did request a next generation sequencing study on the biopsy, and requested screening for BRCA, subject to verification of insurance coverage. PET/CT from November 18, 2019 reported the pancreatic tail mass measuring 2.4 x 5 cm with an SUV of 13.3 representing the biopsy-proven adenocarcinoma. The solid 1.8 x 1.1 cm right upper lobe nodule has an SUV of 14.7, very likely representing metastatic disease. He had scattered mediastinal lymph nodes which are generally benign in appearance but a right paraesophageal node measuring 1.2 x 2.3 cm has an SUV of 3.5. This is likely reactive but should be closely followed on future imaging. A cystic lesion in the spleen measures 3.5 with mild peripheral FDG uptake and this is really suspicious for metastatic disease. There were no findings to indicate osseous metastatic disease. He did have baseline echocardiogram on November 22, 2019. His LVEF was 60 to 65%. No diagnostic regional wall motion abnormalities noted. Normal diastolic function mild aortic valve regurgitation. It is noted that when compared compared to previous echocardiogram dated 12/23/2018 there may not have been any significant change. Mr. Mata began his first cycle of Abraxane and gemcitabine on November 23, 2019. Plan: 1. Plan to proceed with cycle 2 day 1 Abraxane /gemcitabine at current dosing IN ONE WEEK. I did tell him we will resume the steroid taper starting on day 2 or 3 -he will see how he feels on day 2 as the crash didn't occur until day 4 last cycle. 2. Continue same anti-medics unless constipation is identified and then we may need to reconsider the Aloxi. 3. Labs from December 20, 2019 were reviewed in detail discussed with . Mrs. Mata and a copy was given to them. WBC 5.0, hemoglobin 11.4 platelets 425,000 ANC is 3800 potassium 4.6 creatinine 0.8 and LFTs were normal. 4. Dr Valadez and I did discuss the need for Eliquis due to initial report of splenic vein thrombosis during his original diagnosis. However he did have splenic infarct so it is felt that this may have been more of a compression from the tumor rather than thrombosis. We will currently hold off on the Eliquis. Mr Mata was informed of our conversation and has been advised not to take it. He has not been taking it for quite some time. 5. We will plan to see him back in 1 week with CBC CMP. 6. Mr. Mata was instructed to contact us in the interim should questions or problems arise. 7. He was advised he can use lorazepam to sleep if the steroids bother him. He is advised to not drive while taking it however. ADDEDNUM: Mr. Mata cycle 2-day 1 treatment will be delayed 1 week to allow him additional time for recovery. We will plan to start cycle 2-day 1,8 and 15 in 1 week. He may require growth factors to keep him on course. He is aware of this. He had no questions at this time. Signed By: Alyse Mirza-, [facility] Saud Valadez MD <<Signature on File>>
[2019-12-27 12:38] LABS: Basophils # 0.1 10^3/uL (0.0-0.1); Basophils % 0.7 %; Eosinophils # 0.5 10^3/uL (0.0-0.8); Eosinophils % 7.2 %; Hematocrit 34.3 % (42.0-52.0); Lymphocytes # 2.8 10^3/uL (0.8-4.8); Mean Corpuscular HGB Conc 32.1 g/dL (30.0-36.0); Mean Corpuscular Hemoglobin 32.9 pg (28.0-34.0); Mean Corpuscular Volume 102.7 fL (80-94); Mean Platelet Volume 10.5 fL (7.4-10.4); Monocytes # 1.7 10^3/uL (0.2-0.9); Neutrophils # 2.4 10^3/uL (1.8-7.7); Neutrophils % 31.8 %; Nucleated Red Blood Cells % 0 %; Platelet Count 466 10^3/cmm (130-400); Red Blood Count 3.34 10^6/uL (4.1-5.3); Red Cell Distribution Width 15.2 % (12.1-15.1); White Blood Count 7.5 10^3/uL (4.0-10.0)
[2019-12-27 12:51] LABS: Alanine Aminotransferase 16 U/L (0-41); Albumin Level 3.3 g/dL (3.5-5.2); Alkaline Phosphatase 69 IU/L (40-130); Anion Gap 12.4 (5-19); Aspartate Amino Transferase 24 U/L (0-40); Blood Urea Nitrogen 12 mg/dL (8-23); Calcium 8.8 mg/dL (8.5-10.5); Carbon Dioxide 25 mmol/L (22-29); Chloride 108 mmol/L (98-107); Globulin 3.2 g/dL (1.3-4.6); Glomerular Filtration Rate 84.4 mL/min (90-130); Glucose 92 mg/dL (65-115); Potassium 4.4 mmol/L (3.5-5.1); Sodium 141 mmol/L (136-145); Total Bilirubin 0.2 mg/dL (0.15-1.2); Total Protein 6.5 g/dL (6.6-8.7)
[2019-12-28] MEDS: sodium chloride 0.9% 250 ML 75 ML IV (12:39)
--- NOTE | 2019-12-31 21:03 | ONC FU_ITS ---
[facility] Patient Note Patient: Inocencio Mata Unit #: [id number]: 1955 Dictated By: Alyse MirzaDate of Visit: Dec 28, 2019 Onc MED Follow-Up/Prog Note Chief Complaint: Pancreatic cancer/pulmonary nodule. History of Present Illness: Mr Mata is a 63-year-old man with adenocarcinoma involving the tail of the pancreas, stage at least T3, N1 by clinical evaluation. He also has CT evidence of a right upper lobe pulmonary nodule. He has hypertension, hyperlipidemia, and coronary artery disease. In the past he had required esophageal dilatation for esophageal stricture, and the procedure had recently been repeated at [facility] due to recurrence of difficulty swallowing. On 10/19/2019 he presented to the emergency room with fairly abrupt onset of severe pain in the left side of the abdomen and back. His abdominal CT scan showed a focal area of low-attenuation enlargement within the distal tail of the pancreas measuring 4.3 cm, consistent with acute pancreatitis or pancreatic neoplasm. There were findings compatible with splenic infarct, and there was suspected splenic vein thrombosis. Further evaluation with CT angiogram of the chest, abdomen, and pelvis showed a masslike low-attenuation lesion in the tail of the pancreas measuring 4.1 x 1.4 x 2.3 cm, felt to be most consistent with malignancy. Also noted were enlarged retrogastric, peripancreatic, and splenic hilar lymph nodes. A 1 cm focus of hyperattenuation in the liver was suggestive of possible metastasis. 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 The chest showed a spiculated noncalcified right upper lobe mass with eccentric cavitation measuring 1.7 x 0.9 x 2.0 cm, suspicious for malignancy. Calcified mediastinal and left hilar lymph nodes were consistent with prior granulomatous disease. He was referred to Dr. Carpenter in [place]. On 10/27/2019 he underwent ERCP by Dr. Jose New. A poorly demarcated 3 cm mass was noted in the pancreatic tail and several enlarged lymph nodes were noted in the periportal region. In aggregate these measured greater than 2.3 cm. FNA biopsy of the pancreatic mass did confirm adenocarcinoma. FNA biopsy of periportal lymph node was negative for metastatic carcinoma. In the context of the CT findings, he was recommended to undergo neoadjuvant chemotherapy prior to definitive surgery. Mr Mata was seen by Dr Valadez and offered treatment with weekly Abraxane/gemcitabine. He began his first cycle on 11/23/2019. He is here today for followup. He is due to start cycle 2 day 1. He states overall he feels like he is doing well. His appetite is good. His energy is fair. He is able to get out and do the things that he needs to do as he is previously been very active. He states that he has had no nausea or vomiting. He states on day 4 of this cycle he felt kind of washed out and weak. He states that this happened with the first cycle but did improve with the steroids. However he did not take the steroid taper with his last treatment. He states he did having problems with them he just did not think to take them. He denies any new pain. He states his bowels are normal for him. He denies any neuropathy. He has had no vision changes or hearing changes. He denies any fever or chills. His ECOG is 1. He is willing to take the steroids if he feels he needs them after treatment today. He states he feels that he is doing well overall. He states 2-3 bad days are tolerable. He states he will try the steroid taper if he feels like the bad days are coming on. Past Medical History: Coronary artery disease Gout History of esophageal stricture Hyperlipidemia Hypertension Migraine headaches Past Surgical History: ERCP with FNA biopsy of pancreatic mass and periportal lymph node in 2018 Placement of Port-A-Cath venous access device in 2019 Coronary angioplasty/stent placement in 2006 Allergies: No Known Allergies. Medications: Allopurinol 1 Tablet (of 100 mg) Oral daily HYDROcodone-Acetaminophen 1 Tablet (of 5-325 mg) Oral q 6 hours PRN Levaquin 1 Tablet (of 500 mg) Oral daily for 7 days Lisinopril 1 Tablet (of 40 mg) Oral daily Meloxicam 1 Tablet (of 15 mg) Oral daily Metoprolol Tartrate 1 Tablet (of 50 mg) Oral daily Ondansetron HCl 1 Tablet (of 4 mg) Oral PRN Simvastatin 1 Tablet (of 40 mg) Oral daily tiZANidine HCl 1 Tablet (of 4 mg) Oral PRN Topiramate 1 Tablet (of 100 mg) Oral b.i.d. Family History: Mr. Mata's mother at age 91: heart disease, and cancer of unknown primary. Mr. Mata's father at age 91: myocardial infarction. Mr. Mata's maternal grandmother is . Mr. Mata has 1 brother who is alive: colon cancer. Father was found at age 91, thought to be heart related. He had been treated for lung cancer. His mother had Hodgkin's lymphoma in association with rheumatoid arthritis. She of unrelated causes. A brother at age 38, also presumably of heart disease. Another brother has been treated for colon cancer. A maternal aunt has breast cancer. 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 He is a daily smoker who has smoked 1.0 pack/day for 51 years. He drinks daily. He consumes 2 drinks/day 7 days/week. He has indicated exposure to the following products: cigarettes. Mr. Mata reports the following support systems: lives with spouse, significant other, family, or friends, lives in own house, supportive family/friends willing to assist with needs, and adequate transportation available for expected visits. His diet consists of regular meals. He indicates his activity level as: regular exercise. He has a history of smoking 1 pack of cigarettes daily for 50 years. Alcohol use is estimated at 2 beers daily. He was a heavy drinker in the past, but he cut down years ago . Review Of Symptoms: Constitutional Denies night sweats, excessive fatigue. No recent fever or chills. Energy better last few days. Allergic/Immunologic No reactions. Eyes Denies significant visual changes. No diplopia. No amaurosis. ENMT Denies changes in hearing, sore throat, mouth sores, difficulty or changes in swallowing ability, and/or sinus drainage. Hematologic/Lymphatic Denies easy bruising or bleeding. The patient denies any tender or palpable lymph nodes. Respiratory Denies dyspnea on exertion, chest pain, cough or hemoptysis. Denies orthopnea. Cardiovascular Denies anginal chest pain, palpitations or orthopnea. Gastrointestinal Denies nausea, vomiting, diarrhea, GI bleeding, or constipation. Denies change in bowel habits and/or stool color, no heartburn or early satiety. Genitourinary (M) Denies hematuria, dysuria, increased frequency, urgency, hesitancy or incontinence. Musculoskeletal Denies joint pain, swelling or redness. No decreased range of motion. Integumentary Denies chronic rashes, inflammation, ulcerations or skin changes. Neurologic Denies headache, blurred vision, and no areas of focal weakness or numbness. Normal gait. No sensory problems. Psychiatric Denies insomnia, depression, debbie or mood swings. Vital Signs: Performed on Dec 28, 2019 11:43 Height - 68.00 in Weight - 137.6 lbs (HIGH) BSA - 1.74 sq.m BMI - 20.92 Temperature - 97.4 F (LOW) Pulse - 49 /min (LOW) Respiration - 14 /min BP - 138/63 mm(hg) O2 Sat - 97 % Pain - 0 Fatigue - 9,1 - No physically strenuous activity, but ambulatory and able to carry out light or sedentary work (e.g. office work, light house work). (ECOG) Physical Examination: Constitutional Alert, oriented, no acute distress. Skin pink, warm and dry. Head Normocephalic; atraumatic. Eyes Conjunctivae and sclerae are clear and without icterus. Pupils are reactive and equal. Neck Supple without masses or thyromegaly. No jugular venous distension. Hematologic/Lymphatic No petechiae or purpura. No tender or palpable lymph nodes in the cervical or supraclavicular areas. Respiratory Lungs are clear to auscultation without rhonchi or wheezing. Cardiovascular Regular rate and rhythm of heart without murmurs,clicks, gallops or rubs. Abdomen Non-tender, non-distended, no masses or ascites. Good bowel sounds noted in all quads. No guarding or rebound tenderness. No pulsatile masses. Back/Spine Non-tender to palpation. Extremities No visible deformities, no cyanosis, clubbing or edema. Musculoskeletal No tenderness or swelling, normal range of motion without obvious weakness. Integumentary No rashes or lesions. Neurologic No sensory or motor deficits, normal cerebellar function, normal gait. Psychiatric Alert and oriented times three. Coherent speech. Verbalizes understanding of our discussions today. Laboratory:Test performed on Dec 27, 2019 07:00 Sodium 141 mmol/L Potassium 4.4 mmol/L Chloride 108 mmol/L CO2 25 mmol/L Anion Gap 12.4 BUN 12 mg/dL Creatinine 0.9 mg/dL Cr Clearance (Est) 70.1400 mL/min eGFR 84.4 mL/min Glucose 92 mg/dL Calcium 8.8 mg/dL Protein, Total 6.5 g/dL Albumin 3.3 g/dL Globulin 3.2 g/dL Bilirubin, Total 0.2 mg/dL ALT (SGPT) 16 U/L AST (SGOT) 24 U/L Alkaline Phosphatase 69 IU/L WBC 7.5 10 3/uL RBC 3.34 10 6/uL HGB 11.0 g/dL HCT 34.3 % MCV 102.7 fL MCH 32.9 pg MCHC 32.1 g/dL RDW 15.2 % Platelet Count 466 10 3/cmm MPV 10.5 fL Neutrophils 2.4 10 3/uL Lymphocytes 2.8 10 3/uL Monocytes 1.7 10 3/uL Eosinophils 0.5 10 3/uL Basophils 0.1 10 3/uL Neutrophil % 31.8 % Lymphocyte % 37.0 % Monocyte % 22.0 % Eosinophil % 7.2 % Basophils % 0.7 % Test performed on Nov 23, 2019 09:48 CA 19-9 34.94 Units/mL CEA 3.5 ng/mL Impression: 1. Patient with adenocarcinoma involving the tail of the pancreas, confirmed by FNA biopsy on 10/27/2019. By clinical evaluation his disease appears to be at least stage T3, N1, though FNA biopsy of periportal lymph node was negative. 2. 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 3. There is CT evidence of a right upper lobe spiculated pulmonary nodule, which is suspicious for neoplasm, but more likely second primary neoplasm rather than metastasis. 4. There is also a possible hepatic metastasis by CT. 5. He has marginal performance status with weight loss and declining activity tolerance. His other medical illnesses include: 6. Hypertension. 7. Hyperlipidemia. 8. Coronary artery disease with previous angioplasty/stent placement. 9. History of gout. 10. History of esophageal stricture with recent EGD/dilatation procedure. The CT findings and images were reviewed with the patient and his , along with the biopsy results per Dr Valadez. He also discussed the clinical implications. He has biopsy-proven adenocarcinoma involving the tail of the pancreas. There is likely regional lymph node involvement, though it was not able to be confirmed by biopsy. There is a possible metastatic lesion in the liver and there is a right upper lobe pulmonary nodule which appears neoplastic, but would more likely be a second primary malignancy rather than a metastasis, in my opinion. 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 He has been recommended to begin neoadjuvant chemotherapy. Given his marginal performance status, he was clearly not an appropriate candidate for the FOLFIRINOX regimen. As such, he was offered a course of treatment with 4 cycles of gemcitabine/Abraxane. We have reviewed anticipated side effects including the potential for nausea/vomiting, fatigue, alopecia, low blood counts, and neuropathy, among others. In addition, Dr Valadez did request a next generation sequencing study on the biopsy, and requested screening for BRCA, subject to verification of insurance coverage. PET/CT from November 18, 2019 reported the pancreatic tail mass measuring 2.4 x 5 cm with an SUV of 13.3 representing the biopsy-proven adenocarcinoma. The solid 1.8 x 1.1 cm right upper lobe nodule has an SUV of 14.7, very likely representing metastatic disease. He had scattered mediastinal lymph nodes which are generally benign in appearance but a right paraesophageal node measuring 1.2 x 2.3 cm has an SUV of 3.5. This is likely reactive but should be closely followed on future imaging. A cystic lesion in the spleen measures 3.5 with mild peripheral FDG uptake and this is really suspicious for metastatic disease. There were no findings to indicate osseous metastatic disease. He did have baseline echocardiogram on November 22, 2019. His LVEF was 60 to 65%. No diagnostic regional wall motion abnormalities noted. Normal diastolic function mild aortic valve regurgitation. It is noted that when compared compared to previous echocardiogram dated 12/23/2018 there may not have been any significant change. Mr. Mata began his first cycle of Abraxane and gemcitabine on November 23, 2019. Plan: 1. Proceed with cycle 2 day 1 Abraxane/gemcitabine at current dosing. I did resume the steroid taper starting on day 2 or 3 -he will see how he feels on day 2 as the crash didn't occur until day 4 last cycle. 2. Continue same anti-medics unless constipation is identified and then we may need to reconsider the Aloxi. 3. Labs from December 27, 2019 were reviewed in detail discussed with MrAugusto & Mrs. Mata and a copy was given to them. WBC 7.5, hemoglobin 11.0, platelets 466,000 ANC is 2400 (monocytes [id number]) potassium 4.4 creatinine 0.9 and LFTs were normal. 4. We have discussed the need for Eliquis due to initial report of splenic vein thrombosis during his original diagnosis. However he did have splenic infarct so it is felt that this may have been more of a compression from the tumor rather than thrombosis. We will currently hold off on the Eliquis. 5. We will plan to see him back in 1 week with CBC CMP. He is aware that he may need growth factors at that time to keep his treatment on course. 6. Mr. Mata was instructed to contact us in the interim should questions or problems arise. 7. He was advised he can use lorazepam to sleep if the steroids bother him. He is advised to not drive while taking it however. Signed By: Alyse Mirza-, AOCNP Saud Valadez MD <<Signature on File>>
[2020-01-03 10:04] LABS: Basophils % 0.2 %; Eosinophils # 0.1 10^3/uL (0.0-0.8); Eosinophils % 1.3 %; Hematocrit 34.8 % (42.0-52.0); Hemoglobin 11.6 g/dL (11.7-16.6); Lymphocytes % 35.2 %; Mean Corpuscular HGB Conc 33.3 g/dL (30.0-36.0); Mean Corpuscular Hemoglobin 33.6 pg (28.0-34.0); Mean Corpuscular Volume 100.9 fL (80-94); Monocytes # 0.1 10^3/uL (0.2-0.9); Monocytes % 0.7 %; Neutrophils # 5.3 10^3/uL (1.8-7.7); Neutrophils % 62.3 %; Nucleated Red Blood Cells % 0 %; Platelet Count 361 10^3/cmm (130-400); Red Blood Count 3.45 10^6/uL (4.1-5.3); Red Cell Distribution Width 16.4 % (12.1-15.1); White Blood Count 8.6 10^3/uL (4.0-10.0)
[2020-01-03 10:20] LABS: Alanine Aminotransferase 30 U/L (0-41); Albumin Level 3.5 g/dL (3.5-5.2); Alkaline Phosphatase 61 IU/L (40-130); Anion Gap 15.7 (5-19); Aspartate Amino Transferase 25 U/L (0-40); Blood Urea Nitrogen 22 mg/dL (8-23); Calcium 9.3 mg/dL (8.5-10.5); Carbon Dioxide 22 mmol/L (22-29); Chloride 109 mmol/L (98-107); Globulin 3.3 g/dL (1.3-4.6); Glomerular Filtration Rate 112.8 mL/min (90-130); Glucose 98 mg/dL (65-115); Potassium 3.7 mmol/L (3.5-5.1); Sodium 143 mmol/L (136-145); Total Bilirubin 0.4 mg/dL (0.15-1.2); Total Protein 6.8 g/dL (6.6-8.7)
[2020-01-04] MEDS: sodium chloride 0.9% 250 ML 300 ML IV (11:34)
--- NOTE | 2020-01-04 18:45 | ONC FU_ITS ---
Dr. Valadez Patient Follow-Up Note Patient: Inocencio Mata Unit #: [id number]: [id number] Dicatated By: Saud Valadez M.D.Date of Visit:Jan 04, 2020 Onc Med Follow-up/Prog Note Chief Complaint: Pancreatic cancer/pulmonary nodule. History of Present Illness: This is a 63 year-old man with adenocarcinoma involving the tail of the pancreas, stage at least T3, N1 by clinical evaluation. He also had CT evidence of a right upper lobe pulmonary nodule. He has hypertension, hyperlipidemia, and coronary artery disease. In the past he had required esophageal dilatation for esophageal stricture, and the procedure had recently been repeated at [facility] due to recurrence of difficulty swallowing. On 10/19/2019 he presented to the emergency room with fairly abrupt onset of severe pain in the left side of the abdomen and back. His abdominal CT scan showed a focal area of low-attenuation enlargement within the distal tail of the pancreas measuring 4.3 cm, consistent with acute pancreatitis or pancreatic neoplasm. There were findings compatible with splenic infarct, and there was suspected splenic vein thrombosis. Further evaluation with CT angiogram of the chest, abdomen, and pelvis showed a masslike low-attenuation lesion in the tail of the pancreas measuring 4.1 x 1.4 x 2.3 cm, felt to be most consistent with malignancy. Also noted were enlarged retrogastric, peripancreatic, and splenic hilar lymph nodes. A 1 cm focus of hyperattenuation in the liver was suggestive of possible metastasis. 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 The chest showed a spiculated noncalcified right upper lobe mass with eccentric cavitation measuring 1.7 x 0.9 x 2.0 cm, suspicious for malignancy. Calcified mediastinal and left hilar lymph nodes were consistent with prior granulomatous disease. He was referred to Dr. Carpenter in [place]. On 10/27/2019 he underwent ERCP by Dr. Jose New. A poorly demarcated 3 cm mass was noted in the pancreatic tail and several enlarged lymph nodes were noted in the periportal region. In aggregate these measured greater than 2.3 cm. FNA biopsy of the pancreatic mass did confirm adenocarcinoma. FNA biopsy of periportal lymph node was negative for metastatic carcinoma. In the context of the CT findings, he was recommended to undergo neoadjuvant chemotherapy prior to definitive surgery. He was seen here initially on 11/16/2019. At that point he still had fairly marginal performance status, and he was clearly not appropriate for the FOLFIRINOX chemotherapy regimen. As such, he began neoadjuvant chemotherapy with gemcitabine/Abraxane on 11/23/2019. His other medical illnesses include hypertension, hyperlipidemia, and coronary artery disease. He has had previous angioplasty/stent placement. He has a history of gout, and he also has a history of esophageal stricture requiring dilatation. He has a history of smoking 1 pack of cigarettes daily for 50 years. INTERIM HISTORY: With cycle 1 he was able to complete treatment on days 1 and 8, but his day 15 treatment was delayed 1 week due to neutropenia. It had resolved uneventfully with Neupogen. He also experienced significant fatigue with the chemotherapy. He has only mild nausea. He continued with his second cycle of treatment on 12/28/2019. He is seen for a scheduled visit. He continues to complain that his energy is low, and that does get worse for a few days after his chemotherapy. He also just feels yucky for a few days. His appetite is otherwise pretty good. His ECOG score is 1. He does not have fever or night sweats. He has not had mouth sores, but he has had a little gum bleeding and he has had some slight epistaxis. He had some coughing last night. He does not complain of shortness of breath or chest pain. He has mild nausea. He has a little bit of acid reflux. He has had some constipation. His abdominal pain has pretty much completely resolved. He has frequent urination. He has been having little stabby pains all over, but intermittently. He sometimes staggers when he first gets up. He has no numbness/paresthesia or other focal neurologic symptoms. Medications: Allopurinol 1 Tablet (of 100 mg) Oral daily, HYDROcodone-Acetaminophen 1 Tablet (of 5-325 mg) Oral q 6 hours PRN, Levaquin 1 Tablet (of 500 mg) Oral daily for 7 days, Lisinopril 1 Tablet (of 40 mg) Oral daily, Meloxicam 1 Tablet (of 15 mg) Oral daily, Metoprolol Tartrate 1 Tablet (of 50 mg) Oral daily, Ondansetron HCl 1 Tablet (of 4 mg) Oral PRN, Simvastatin 1 Tablet (of 40 mg) Oral daily, tiZANidine HCl 1 Tablet (of 4 mg) Oral PRN, Topiramate 1 Tablet (of 100 mg) Oral b.i.d. Allergies: No Known Allergies. Review of Systems: Constitutional - His energy is low. 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 His appetite is good and his weight is stable. No fever, chills, hot flashes, or night sweats. ECOG score is 1, ENMT - He has sinus congestion/drainage. He occasionally has a sore throat and difficulty swallowing. He has sore mouth and his gums bleed when he brushes his teeth, Hematologic/Lymphatic - He has occasional mild nose bleeds, Respiratory - No shortness of breath. No cough. No pleuritic pain or hemoptysis, Cardiovascular - No angina pain. No palpitations, Gastrointestinal - His abdominal pain has pretty much completely resolved. He has some nausea without vomiting. He has some acid reflux. He tends to stay constipated. No blood in the stool or black stools, Genitourinary (M) - No dysuria or hematuria. He has urinary frequency. No urgency or incontinence, Musculoskeletal - He has random stabbing pains all over his body, Integumentary - No skin complications, Neurologic - No headache. He feels dizzy and light-headed at times when he first gets up. No numbness/paresthesias or other focal neurologic symptoms, Psychiatric - No anxiety or depression. No insomnia. Vital Signs: Performed on Jan 04, 2020 11:01 Height - 68.00 in Weight - 137.8 lbs (HIGH) BSA - 1.74 sq.m BMI - 20.95 Temperature - 97.8 F (LOW) Pulse - 57 /min (LOW) Respiration - 18 /min BP - 126/68 mm(hg) O2 Sat - 100 % Pain - 0 Physical Examination: Constitutional - He still appears somewhat weak generally, Eyes - Sclerae nonicteric. Conjunctivae clear, ENMT - No lesions noted in the oral cavity, Hematologic/Lymphatic - No cervical, clavicular, or axillary adenopathy, Respiratory - Lungs are clear with diminished air movement bilaterally, Cardiovascular - Heart rhythm is regular. There is no murmur, gallop, or rub noted, Abdomen - Soft and nontender. Liver is not enlarged. Spleen is not palpable. There is no abdominal mass or ascites noted and there is no inguinal adenopathy, Extremities - No edema, Neurologic - No focal neurologic deficits noted. Lab/Imaging: CBC shows hemoglobin 11.6 g, white blood cell count 8600, and platelet count 361,000. Comprehensive metabolic profile is unremarkable. Impression: 1. Patient with adenocarcinoma involving the tail of the pancreas, confirmed by FNA biopsy on 10/27/2019. By clinical evaluation his disease appears to be at least stage T3, N1, though FNA biopsy of periportal lymph node was negative. 2. 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 3. There is CT evidence of a right upper lobe spiculated pulmonary nodule, which is suspicious for neoplasm, but more likely second primary neoplasm rather than metastasis. 4. There is also a possible hepatic metastasis by CT. 5. He has marginal performance status with weight loss and declining activity tolerance. His other medical illnesses include: 6. Hypertension. 7. Hyperlipidemia. 8. Coronary artery disease with previous angioplasty/stent placement. 9. History of gout. 10. History of esophageal stricture with recent EGD/dilatation procedure. On 11/23/2019 he began neoadjuvant chemotherapy with gemcitabine/Abraxane. With the first cycle his day 15 treatment was delayed 1 week due to neutropenia. Other side effects included fatigue and mild nausea. He had mild musculoskeletal/neuropathy symptoms. He was able to continue with cycle 2 on 12/28/2019. At this point he continues to have somewhat marginal performance status, but his abdominal pain has improved significantly. His blood counts are adequate, and he appears to be tolerating the chemotherapy with acceptable toxicity. Plan: He will continue with cycle 2-day 8 gemcitabine/Abraxane. The dosages will remain the same. He returns in 1 week for his day 15 treatment. He will be scheduled for restaging CT scans prior to his third cycle of treatment. Signed By: Saud Valadez M.D. <<Signature on File>>
[2020-01-10 12:03] LABS: Eosinophils # 0.1 10^3/uL (0.0-0.8); Eosinophils % 1.8 %; Hematocrit 28.8 % (42.0-52.0); Hemoglobin 9.3 g/dL (11.7-16.6); Lymphocytes # 2.3 10^3/uL (0.8-4.8); Lymphocytes % 67.8 %; Mean Corpuscular HGB Conc 32.3 g/dL (30.0-36.0); Mean Corpuscular Hemoglobin 32.9 pg (28.0-34.0); Mean Corpuscular Volume 101.8 fL (80-94); Mean Platelet Volume 11.5 fL (7.4-10.4); Monocytes % 0.9 %; Neutrophils % 29.2 %; Nucleated Red Blood Cells % 0 %; Platelet Count 148 10^3/cmm (130-400); Red Blood Count 2.83 10^6/uL (4.1-5.3); Red Cell Distribution Width 17.1 % (12.1-15.1); White Blood Count 3.4 10^3/uL (4.0-10.0)
[2020-01-10 12:29] LABS: Slide Review Slide Review Perform
[2020-01-10 12:33] LABS: Alanine Aminotransferase 35 U/L (0-41); Albumin Level 3.1 g/dL (3.5-5.2); Alkaline Phosphatase 55 IU/L (40-130); Anion Gap 13.9 (5-19); Aspartate Amino Transferase 24 U/L (0-40); Blood Urea Nitrogen 23 mg/dL (8-23); Calcium 9.1 mg/dL (8.5-10.5); Carbon Dioxide 26 mmol/L (22-29); Chloride 104 mmol/L (98-107); Globulin 2.9 g/dL (1.3-4.6); Glomerular Filtration Rate 96.7 mL/min (90-130); Glucose 85 mg/dL (65-115); Potassium 3.9 mmol/L (3.5-5.1); Sodium 140 mmol/L (136-145); Total Bilirubin 0.4 mg/dL (0.15-1.2)
== END 2020-01-13 23:59 | disposition home or self-care (01) ==
LOC: ONCMED 07:05
PROVIDERS: Nurse Practitioner; Family Provider Family Medicine; PCP Family Medicine; Visit Provider Internal Medicine Medical Oncology
DX: Z51.11 Encounter for antineoplastic chemotherapy (principal); C25.2 Malignant neoplasm of tail of pancreas; R91.8 Other nonspecific abnormal finding of lung field; I10 Essential (primary) hypertension; E78.5 Hyperlipidemia, unspecified; I25.10 Atherosclerotic heart disease of native coronary artery without angina pectoris; M10.9 Gout, unspecified; F17.210 Nicotine dependence, cigarettes, uncomplicated; F10.10 Alcohol abuse, uncomplicated; I74.8 Embolism and thrombosis of other arteries; I35.1 Nonrheumatic aortic (valve) insufficiency; Z79.891 Long term (current) use of opiate analgesic; Z79.899 Other long term (current) drug therapy; Z79.01 Long term (current) use of anticoagulants; Z95.5 Presence of coronary angioplasty implant and graft
CPT/HCPCS: 36415; 80053; 85025; 96367; 96413; 96417; 99214; J1100; J2405; J2469; J3490; J7050; J9201; J9264

== ENCOUNTER 2020-02-08 07:48 | Outpatient (RCR) | payer MEDICARE, OTHER, SELFPAY ==
--- NOTE | 2020-01-16 08:38 | CT_ITS ---
WS: [id number] CT scan of the chest With IV contrast, CT scan of the abdomen and pelvis with IV contrast and with oral contrast. Additional two-dimensional coronal and sagittal reconstruction was performed. 01/16/2020 Clinical Data: PANCREATIC CANCER Comparison: CT chest abdomen and pelvis, 10/19/2019. DLP: 1070.[address] scans at [facility] use at least one of these dose optimization techniques: automat ed exposure control; mA and/or kV adjustment per patient size (includes targeted exams where dose is matched to clinical indication); or iterative reconstruction. Findings: Chest: The right upper lobe mass noted on the previous scan now shows resolution. The lesion has only a thin wall and has appearance of a cavity. No other lung lesions are seen. There are no effusions. The hea rt is normal without pericardial effusion. Coronary artery calcification is seen. The pulmonary arterial system and thoracic aorta demonstrate no abnormalities or dilatations. There is no axillary or significant mediastinal adenopathy. The trachea bifurcates normally and of th e bronchi. The thyroid gland shows normal enhancement. No axillary or significant mediastinal adenopa thy is seen. There is a small hiatal hernia. Bony thorax shows no abnormalities. No metastatic lesion s are seen. Abdomen/pelvis: The liver, gallbladder, spleen and adrenal glands are normal. The tail the pancreas shows a low-density lesion which now measures 1.51 x 4.64 cm. The spleen shows mild enhancement but there is an area of low density which may represent a splenic infarction. Again the splenic artery is interrupted and probably occluded. The left gastric artery again is seen origin ating from the aorta and supplying the stomach. The kidneys show equal bilateral contrast excretion with no cyst or masses. There is a central nonobs tructing right renal calculus measuring 0.5 cm. The abdominal aorta is normal in size with calcification in the wall. No appendicitis or diverticulit is is seen. Sigmoid diverticula are present. Oral contrast is seen in the stomach, small bowel and co jadiel. No bowel dilatation is seen. No abscess, adenopathy, ascites, obstruction or free air is seen. The bladder is unremarkable. No inguinal hernia is seen. The bones of the lower thorax, lumbar spine, pelvis, and hips show osteoarthritis of the lumbar verte bral bodies with degenerative disc disease at L3-L4 and L4-L5.. CT/CT chest abd pel w con* Impression: 1. Right upper lobe lesion shows resolution with thinning of the wall and it no w has an appearance of a simple cyst. 2. Low-density lesion in tail of pancreas unchanged. Again this may represent a pancreatic carcinoma. 3. 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 4. Nonobstructing central right renal calculus.
[2020-01-16] MEDS: iohexol 300 mg/mL 50 mL Btl IV (10:30)
[2020-01-16] MEDS: iohexol 300 mg/mL 100 mL Btl IV (10:32)
[2020-01-17 14:48] LABS: Basophils # 0.1 10^3/uL (0.0-0.1); Basophils % 0.7 %; Eosinophils # 0.4 10^3/uL (0.0-0.8); Hematocrit 34.8 % (42.0-52.0); Lymphocytes # 1.4 10^3/uL (0.8-4.8); Lymphocytes % 18.8 %; Mean Corpuscular HGB Conc 31.6 g/dL (30.0-36.0); Mean Corpuscular Hemoglobin 34.3 pg (28.0-34.0); Mean Corpuscular Volume 108.4 fL (80-94); Mean Platelet Volume 10.9 fL (7.4-10.4); Monocytes # 1.1 10^3/uL (0.2-0.9); Neutrophils # 4.5 10^3/uL (1.8-7.7); Neutrophils % 59.1 %; Nucleated Red Blood Cells % 0 %; Platelet Count 450 10^3/cmm (130-400); Red Blood Count 3.21 10^6/uL (4.1-5.3); Red Cell Distribution Width 19.1 % (12.1-15.1); White Blood Count 7.6 10^3/uL (4.0-10.0)
[2020-01-17 15:09] LABS: Carcinoembryonic Antigen 4.1 ng/mL (0.0-4.7)
[2020-01-17 15:10] LABS: Cancer Antigen 19 9 19.14 U/mL (0-35)
[2020-01-17 15:21] LABS: Alanine Aminotransferase 14 U/L (0-41); Albumin Level 3.5 g/dL (3.5-5.2); Alkaline Phosphatase 81 IU/L (40-130); Anion Gap 17.3 (5-19); Aspartate Amino Transferase 20 U/L (0-40); Blood Urea Nitrogen 9 mg/dL (8-23); Calcium 9.1 mg/dL (8.5-10.5); Carbon Dioxide 22 mmol/L (22-29); Chloride 102 mmol/L (98-107); Globulin 3.2 g/dL (1.3-4.6); Glomerular Filtration Rate 84.4 mL/min (90-130); Glucose 122 mg/dL (65-115); Potassium 4.3 mmol/L (3.5-5.1); Sodium 137 mmol/L (136-145); Total Bilirubin 0.3 mg/dL (0.15-1.2); Total Protein 6.7 g/dL (6.6-8.7)
[2020-01-18] MEDS: sodium chloride 0.9% 250 ML 75 ML IV (11:35)
--- NOTE | 2020-01-22 18:02 | ONC FU_ITS ---
[facility] Patient Note Patient: Inocencio Mata Unit #: [id number]: [id number] Dictated By: Alyse MirzaDate of Visit: Jan 18, 2020 Onc MED Follow-Up/Prog Note Chief Complaint: Pancreatic cancer/pulmonary nodule. History of Present Illness: Mr Mata is a 63 year-old man with adenocarcinoma involving the tail of the pancreas, stage at least T3, N1 by clinical evaluation. He also had CT evidence of a right upper lobe pulmonary nodule. He has hypertension, hyperlipidemia, and coronary artery disease. In the past he had required esophageal dilatation for esophageal stricture, and the procedure had recently been repeated at [facility] due to recurrence of difficulty swallowing. On 10/19/2019 he presented to the emergency room with fairly abrupt onset of severe pain in the left side of the abdomen and back. His abdominal CT scan showed a focal area of low-attenuation enlargement within the distal tail of the pancreas measuring 4.3 cm, consistent with acute pancreatitis or pancreatic neoplasm. There were findings compatible with splenic infarct, and there was suspected splenic vein thrombosis. Further evaluation with CT angiogram of the chest, abdomen, and pelvis showed a masslike low-attenuation lesion in the tail of the pancreas measuring 4.1 x 1.4 x 2.3 cm, felt to be most consistent with malignancy. Also noted were enlarged retrogastric, peripancreatic, and splenic hilar lymph nodes. A 1 cm focus of hyperattenuation in the liver was suggestive of possible metastasis. 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 The chest showed a spiculated noncalcified right upper lobe mass with eccentric cavitation measuring 1.7 x 0.9 x 2.0 cm, suspicious for malignancy. Calcified mediastinal and left hilar lymph nodes were consistent with prior granulomatous disease. He was referred to Dr. Carpenter in [place]. On 10/27/2019 he underwent ERCP by Dr. Jose New. A poorly demarcated 3 cm mass was noted in the pancreatic tail and several enlarged lymph nodes were noted in the periportal region. In aggregate these measured greater than 2.3 cm. FNA biopsy of the pancreatic mass did confirm adenocarcinoma. FNA biopsy of periportal lymph node was negative for metastatic carcinoma. In the context of the CT findings, he was recommended to undergo neoadjuvant chemotherapy prior to definitive surgery. He was seen here initially on 11/16/2019. At that point he still had fairly marginal performance status, and he was clearly not appropriate for the FOLFIRINOX chemotherapy regimen. As such, he began neoadjuvant chemotherapy with gemcitabine/Abraxane on 11/23/2019. His other medical illnesses include hypertension, hyperlipidemia, and coronary artery disease. He has had previous angioplasty/stent placement. He has a history of gout, and he also has a history of esophageal stricture requiring dilatation. He has a history of smoking 1 pack of cigarettes daily for 50 years. INTERIM HISTORY: With cycle 1 he was able to complete treatment on days 1 and 8, but his day 15 treatment was delayed 1 week due to neutropenia. He has had neutropenia with both cycles. It had resolved uneventfully with Neupogen. He continued with his second cycle of treatment on 12/28/2019. He was once again delayed one week for neutropenia, but he has had no signs of infection. His ANC was 4500 on 01/17/2020 labs. Mr. Mata had restaging CT of the chest abdomen pelvis on January 16, 2020. The CT of the chest reports the right upper lobe mass noted on the previous scan now shows resolution. Lesion only has a thin wall and has appearance of a cavity. No other lesions are seen there were no effusions. CT of the abdomen/pelvis reports a low-density lesion in the tail the pancreas measuring 1.51 x 4.64 cm. The spleen shows mild enhancement but there is an area of low density which may represent a splenic infarct. Again the splenic artery is interrupted and probably occluded. Left gastric artery is seen originating from the aorta and supplying the stomach. There is a central nonobstructing right renal calculus measuring 0.5 cm. The bones of the lower thorax, lumbar spine, pelvis and hips show osteoarthritis of the lumbar vertebral bodies with degenerative disc disease at L3-L4 and L4-L5. There has been resolution of the lung mass the pancreatic mass has not changed dramatically. It was measured at 2.4 x 5.0 cm on his November 18, 2019 PET scan. I did speak with Dr. Valadez regarding plan of care. Mr. Mata has been advised to pursue 1 more cycle of chemotherapy (3 weeks). We will then refer him back to [place] for consideration of surgery. Hopefully he will be able to stay on track as far as his blood counts are concerned as he is had an extra week off from last cycle. Mr Mata is here today for followup. He denies any new concerns today. He states that he feels good overall and is been able to get out some. His mentions that he has had some depression and some mood swings. He does not feel they are a problem but she states she thought they were getting worse. He has not been getting out of the house much due to the fact he is afraid he will get sick. He has not been checking on his counts regularly. We talked at length about increasing his activity to see if this will help with his situational depression, if not there are certainly medications that we can try. I would like for him to try natural approaches first if possible. 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 He has been working a little around the house over the last week and states he does feel better. He denies any thoughts to harm himself or others. 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 His appetite comes and goes but is ok for the most part. His ECOG is 1. Past Medical History: Coronary artery disease Gout History of esophageal stricture Hyperlipidemia Hypertension Migraine headaches Past Surgical History: ERCP with FNA biopsy of pancreatic mass and periportal lymph node in 2019 Placement of Port-A-Cath venous access device in 2019 Coronary angioplasty/stent placement in 2006 Allergies: No Known Allergies. Medications: Allopurinol 1 Tablet (of 100 mg) Oral daily HYDROcodone-Acetaminophen 1 Tablet (of 5-325 mg) Oral q 6 hours PRN Levaquin 1 Tablet (of 500 mg) Oral daily for 7 days Lisinopril 1 Tablet (of 40 mg) Oral daily Meloxicam 1 Tablet (of 15 mg) Oral daily Metoprolol Tartrate 1 Tablet (of 50 mg) Oral daily Ondansetron HCl 1 Tablet (of 4 mg) Oral PRN Simvastatin 1 Tablet (of 40 mg) Oral daily tiZANidine HCl 1 Tablet (of 4 mg) Oral PRN Topiramate 1 Tablet (of 100 mg) Oral b.i.d. Family History: Mr. Mata's mother at age 91: heart disease, and cancer of unknown primary. Mr. Mata's father at age 91: myocardial infarction. Mr. Mata's maternal grandmother is . Mr. Mata has 1 brother who is alive: colon cancer. Father was found at age 91, thought to be heart related. He had been treated for lung cancer. His mother had Hodgkin's lymphoma in association with rheumatoid arthritis. She of unrelated causes. A brother at age 38, also presumably of heart disease. Another brother has been treated for colon cancer. A maternal aunt has breast cancer. 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 He is a daily smoker who has smoked 1.0 pack/day for 51 years. He drinks daily. He consumes 2 drinks/day 7 days/week. He has indicated exposure to the following products: cigarettes. Mr. Mata reports the following support systems: lives with spouse, significant other, family, or friends, lives in own house, supportive family/friends willing to assist with needs, and adequate transportation available for expected visits. His diet consists of regular meals. He indicates his activity level as: regular exercise. He has a history of smoking 1 pack of cigarettes daily for 50 years. Alcohol use is estimated at 2 beers daily. He was a heavy drinker in the past, but he cut down years ago . Review Of Symptoms: Constitutional Denies night sweats, excessive fatigue. No recent fever or chills. Energy better last few days. Allergic/Immunologic No reactions. Eyes Denies significant visual changes. No diplopia. No amaurosis. ENMT Denies changes in hearing, sore throat, mouth sores, difficulty or changes in swallowing ability, and/or sinus drainage. Hematologic/Lymphatic Denies easy bruising or bleeding. The patient denies any tender or palpable lymph nodes. Respiratory Denies dyspnea on exertion, chest pain, cough or hemoptysis. Denies orthopnea. Cardiovascular Denies anginal chest pain, palpitations or orthopnea. Gastrointestinal Denies nausea, vomiting, diarrhea, GI bleeding, or constipation. Denies change in bowel habits and/or stool color, no heartburn or early satiety. Genitourinary (M) Denies hematuria, dysuria, increased frequency, urgency, hesitancy or incontinence. Musculoskeletal Denies joint pain, swelling or redness. No decreased range of motion. Integumentary Denies chronic rashes, inflammation, ulcerations or skin changes. Neurologic Denies headache, blurred vision, and no areas of focal weakness or numbness. Normal gait. No sensory problems. Psychiatric Denies insomnia, debbie or mood swings. Has noticed situational depression but feels it is controlled. Vital Signs: Performed on Jan 18, 2020 10:47 Height - 68.00 in Weight - 140.8 lbs (HIGH) BSA - 1.76 sq.m BMI - 21.41 Temperature - 98.4 F Pulse - 65 /min Respiration - 16 /min BP - 144/74 mm(hg) (HIGH) O2 Sat - 99 % Pain - 0 Fatigue - 8,1 - No physically strenuous activity, but ambulatory and able to carry out light or sedentary work (e.g. office work, light house work). (ECOG) Physical Examination: Constitutional Alert, oriented, no acute distress. Skin pink, warm and dry. Head Normocephalic; atraumatic. Eyes Conjunctivae and sclerae are clear and without icterus. Pupils are reactive and equal. ENMT No oral exudates, ulcers, masses, thrush or mucositis. Oropharynx clear. Tongue normal. Neck Supple without masses or thyromegaly. No jugular venous distension. Hematologic/Lymphatic No petechiae or purpura. No tender or palpable lymph nodes in the cervical or supraclavicular areas. Respiratory Lungs are clear to auscultation without rhonchi or wheezing. Cardiovascular Regular rate and rhythm of heart without murmurs,clicks, gallops or rubs. Abdomen Non-tender, non-distended, no masses or ascites. Good bowel sounds noted in all quads. No guarding or rebound tenderness. No pulsatile masses. Back/Spine Non-tender to palpation. Extremities No visible deformities, no cyanosis, clubbing or edema. Musculoskeletal No tenderness or swelling, normal range of motion without obvious weakness. Integumentary No rashes or lesions. Neurologic No sensory or motor deficits, normal cerebellar function, normal gait. Psychiatric Alert and oriented times three. Coherent speech. Verbalizes understanding of our discussions today. Laboratory:Test performed on Jan 17, 2020 08:25 Sodium 137 mmol/L Potassium 4.3 mmol/L Chloride 102 mmol/L CO2 22 mmol/L Anion Gap 17.3 BUN 9 mg/dL Creatinine 0.9 mg/dL Cr Clearance (Est) 70.1400 mL/min eGFR 84.4 mL/min Glucose 122 mg/dL Calcium 9.1 mg/dL Protein, Total 6.7 g/dL Albumin 3.5 g/dL Globulin 3.2 g/dL Bilirubin, Total 0.3 mg/dL ALT (SGPT) 14 U/L AST (SGOT) 20 U/L Alkaline Phosphatase 81 IU/L WBC 7.6 10 3/uL RBC 3.21 10 6/uL HGB 11.0 g/dL HCT 34.8 % MCV 108.4 fL MCH 34.3 pg MCHC 31.6 g/dL RDW 19.1 % Platelet Count 450 10 3/cmm MPV 10.9 fL Neutrophils 4.5 10 3/uL Lymphocytes 1.4 10 3/uL Monocytes 1.1 10 3/uL Eosinophils 0.4 10 3/uL Basophils 0.1 10 3/uL Neutrophil % 59.1 % Lymphocyte % 18.8 % Monocyte % 15.0 % Eosinophil % 5.0 % Basophils % 0.7 % CA 19-9 19.14 U/mL CEA 4.1 ng/mL Impression: 1. Patient with adenocarcinoma involving the tail of the pancreas, confirmed by FNA biopsy on 10/27/2019. By clinical evaluation his disease appears to be at least stage T3, N1, though FNA biopsy of periportal lymph node was negative. 2. 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 3. There is CT evidence of a right upper lobe spiculated pulmonary nodule, which is suspicious for neoplasm, but more likely second primary neoplasm rather than metastasis. 4. There is also a possible hepatic metastasis by CT. 5. He has marginal performance status with weight loss and declining activity tolerance. His other medical illnesses include: 6. Hypertension. 7. Hyperlipidemia. 8. Coronary artery disease with previous angioplasty/stent placement. 9. History of gout. 10. History of esophageal stricture with recent EGD/dilatation procedure. On 11/23/2019 he began neoadjuvant chemotherapy with gemcitabine/Abraxane. With the first cycle his day 15 treatment was delayed 1 week due to neutropenia. Other side effects included fatigue and mild nausea. He had mild musculoskeletal/neuropathy symptoms. He was able to continue with cycle 2 on 12/28/2019. At this point he continues to have somewhat marginal performance status, but his abdominal pain has improved significantly. His blood counts are adequate, and he appears to be tolerating the chemotherapy with acceptable toxicity. Mr. Mata had restaging CT of the chest abdomen pelvis on January 16, 2020. The CT of the chest reports the right upper lobe mass noted on the previous scan now shows resolution. Lesion only has a thin wall and has appearance of a cavity. No other lesions are seen there were no effusions. CT of the abdomen/pelvis reports a low-density lesion in the tail the pancreas measuring 1.51 x 4.64 cm. The spleen shows mild enhancement but there is an area of low density which may represent a splenic infarct. Again the splenic artery is interrupted and probably occluded. Left gastric artery is seen originating from the aorta and supplying the stomach. There is a central nonobstructing right renal calculus measuring 0.5 cm. The bones of the lower thorax, lumbar spine, pelvis and hips show osteoarthritis of the lumbar vertebral bodies with degenerative disc disease at L3-L4 and L4-L5. There has been resolution of the lung mass the pancreatic mass has not changed dramatically. It was measured at 2.4 x 5.0 cm on his November 18, 2019 PET scan. I did speak with Dr. Valadez regarding plan of care. Mr. Mata has been advised to pursue 1 more cycle of chemotherapy (3 weeks). We will then refer him back to [facility] for consideration of surgery. Hopefully he will be able to stay on track as far as his blood counts are concerned as he is had an extra week off from last cycle. Plan: 1. Proceed with cycle 3 day 1 Abraxane/gemcitabine at current dosing. The current plan is to complete cycle 3 and then refer to Dr Carpenter for possible surgery. 2. Continue same anti-medics unless constipation is identified and then we may need to reconsider the Aloxi. 3. Labs from January 17, 2020 were reviewed in detail discussed with & Mrs. Mata and a copy was given to them. WBC 7.6, hemoglobin 11.0, platelets 450,000 ANC is 4500 potassium 4.3 creatinine 0.9 and LFTs were normal. CA 19-9 = 30315 and CEA = 4.1 on 01/17/2020. 4. We have discussed the need for Eliquis due to initial report of splenic vein thrombosis during his original diagnosis. However he did have splenic infarct so it is felt that this may have been more of a compression from the tumor rather than thrombosis. We will currently hold off on the Eliquis. 5. We will plan to see him back in 1 week with CBC CMP. He is aware that he may need growth factors again at that time to keep his treatment on course. 6. Mr. Mata was instructed to contact us in the interim should questions or problems arise. Signed By: Alyse Mirza-, AOCNP Saud Valadez MD <<Signature on File>>
[2020-01-24 17:08] LABS: Eosinophils # 0.1 10^3/uL (0.0-0.8); Eosinophils % 1.9 %; Hematocrit 32.9 % (42.0-52.0); Hemoglobin 10.7 g/dL (11.7-16.6); Lymphocytes # 1.8 10^3/uL (0.8-4.8); Lymphocytes % 28.6 %; Mean Corpuscular HGB Conc 32.5 g/dL (30.0-36.0); Mean Corpuscular Hemoglobin 34.9 pg (28.0-34.0); Mean Corpuscular Volume 107.2 fL (80-94); Mean Platelet Volume 10.4 fL (7.4-10.4); Monocytes # 0.1 10^3/uL (0.2-0.9); Monocytes % 0.9 %; Neutrophils # 4.3 10^3/uL (1.8-7.7); Neutrophils % 67.5 %; Nucleated Red Blood Cells % 0 %; Platelet Count 561 10^3/cmm (130-400); Red Blood Count 3.07 10^6/uL (4.1-5.3); Red Cell Distribution Width 19.1 % (12.1-15.1); White Blood Count 6.4 10^3/uL (4.0-10.0)
[2020-01-24 17:24] LABS: Alanine Aminotransferase 33 U/L (0-41); Albumin Level 3.3 g/dL (3.5-5.2); Alkaline Phosphatase 67 IU/L (40-130); Aspartate Amino Transferase 24 U/L (0-40); Blood Urea Nitrogen 20 mg/dL (8-23); Calcium 9.2 mg/dL (8.5-10.5); Carbon Dioxide 24 mmol/L (22-29); Chloride 105 mmol/L (98-107); Globulin 3.1 g/dL (1.3-4.6); Glomerular Filtration Rate 112.8 mL/min (90-130); Glucose 112 mg/dL (65-115); Osmolality Calculated 291 mOsm/kg (285-295); Sodium 142 mmol/L (136-145); Total Bilirubin 0.3 mg/dL (0.15-1.2); Total Protein 6.4 g/dL (6.6-8.7)
[2020-01-25] MEDS: sodium chloride 0.9% 250 ML 300 ML IV (12:00)
--- NOTE | 2020-01-28 16:33 | ONC FU_ITS ---
[facility] Patient Note Patient: Inocencio Mata Unit #: [id number]: 1955 Dictated By: Alyse MirzaDate of Visit: Jan 25, 2020 Onc MED Follow-Up/Prog Note Chief Complaint: Pancreatic cancer/pulmonary nodule. History of Present Illness: Mr Mata is a 63 year-old man with adenocarcinoma involving the tail of the pancreas, stage at least T3, N1 by clinical evaluation. He also had CT evidence of a right upper lobe pulmonary nodule. He has hypertension, hyperlipidemia, and coronary artery disease. In the past he had required esophageal dilatation for esophageal stricture, and the procedure had recently been repeated at [facility] due to recurrence of difficulty swallowing. On 10/19/2019 he presented to the emergency room with fairly abrupt onset of severe pain in the left side of the abdomen and back. His abdominal CT scan showed a focal area of low-attenuation enlargement within the distal tail of the pancreas measuring 4.3 cm, consistent with acute pancreatitis or pancreatic neoplasm. There were findings compatible with splenic infarct, and there was suspected splenic vein thrombosis. Further evaluation with CT angiogram of the chest, abdomen, and pelvis showed a masslike low-attenuation lesion in the tail of the pancreas measuring 4.1 x 1.4 x 2.3 cm, felt to be most consistent with malignancy. Also noted were enlarged retrogastric, peripancreatic, and splenic hilar lymph nodes. A 1 cm focus of hyperattenuation in the liver was suggestive of possible metastasis. 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 The chest showed a spiculated noncalcified right upper lobe mass with eccentric cavitation measuring 1.7 x 0.9 x 2.0 cm, suspicious for malignancy. Calcified mediastinal and left hilar lymph nodes were consistent with prior granulomatous disease. He was referred to Dr. Carpenter in [place]. On 10/27/2019 he underwent ERCP by Dr. Jose New. A poorly demarcated 3 cm mass was noted in the pancreatic tail and several enlarged lymph nodes were noted in the periportal region. In aggregate these measured greater than 2.3 cm. FNA biopsy of the pancreatic mass did confirm adenocarcinoma. FNA biopsy of periportal lymph node was negative for metastatic carcinoma. In the context of the CT findings, he was recommended to undergo neoadjuvant chemotherapy prior to definitive surgery. He was seen here initially on 11/16/2019. At that point he still had fairly marginal performance status, and he was clearly not appropriate for the FOLFIRINOX chemotherapy regimen. As such, he began neoadjuvant chemotherapy with gemcitabine/Abraxane on 11/23/2019. His other medical illnesses include hypertension, hyperlipidemia, and coronary artery disease. He has had previous angioplasty/stent placement. He has a history of gout, and he also has a history of esophageal stricture requiring dilatation. He has a history of smoking 1 pack of cigarettes daily for 50 years. INTERIM HISTORY: With cycle 1 he was able to complete treatment on days 1 and 8, but his day 15 treatment was delayed 1 week due to neutropenia. He has had neutropenia with both cycles. It had resolved uneventfully with Neupogen. He continued with his second cycle of treatment on 12/28/2019. He was once again delayed one week for neutropenia, but he has had no signs of infection. His ANC was 4500 on 01/17/2020 labs. Mr. Mata had restaging CT of the chest abdomen pelvis on January 16, 2020. The CT of the chest reports the right upper lobe mass noted on the previous scan now shows resolution. Lesion only has a thin wall and has appearance of a cavity. No other lesions are seen there were no effusions. CT of the abdomen/pelvis reports a low-density lesion in the tail the pancreas measuring 1.51 x 4.64 cm. The spleen shows mild enhancement but there is an area of low density which may represent a splenic infarct. Again the splenic artery is interrupted and probably occluded. Left gastric artery is seen originating from the aorta and supplying the stomach. There is a central nonobstructing right renal calculus measuring 0.5 cm. The bones of the lower thorax, lumbar spine, pelvis and hips show osteoarthritis of the lumbar vertebral bodies with degenerative disc disease at L3-L4 and L4-L5. There has been resolution of the lung mass the pancreatic mass has not changed dramatically. It was measured at 2.4 x 5.0 cm on his November 18, 2019 PET scan. I did speak with Dr. Valadez regarding plan of care. Mr. Mata has been advised to pursue 1 more cycle of chemotherapy (3 weeks). We will then refer him back to [place] for consideration of surgery. Hopefully he will be able to stay on track as far as his blood counts are concerned as he is had an extra week off from last cycle. Mr Mata is here today for followup. He is due for cycle 3 day 8 chemo. He denies any new concerns today. He states that he feels good overall and is been able to get out some. He states since the weather has gotten better he thinks his moods are better as well. He denies any new pain. He states he has been able to get up and get around the low bit more. He denies any fever or chills. He denies any mouth sores sore throat or difficulty swallowing. He states he thinks he may have had a temperature after last treatment like Wednesday or Wednesday as he felt warm but they did not check his temperature. He had no cough. He has had no urinary symptoms. He denies any diarrhea or constipation. He states overall he feels he is doing pretty good. His ECOG is 1. Past Medical History: Coronary artery disease Gout History of esophageal stricture Hyperlipidemia Hypertension Migraine headaches Past Surgical History: ERCP with FNA biopsy of pancreatic mass and periportal lymph node in 2019 Placement of Port-A-Cath venous access device in 2019 Coronary angioplasty/stent placement in 2006 Allergies: No Known Allergies. Medications: Allopurinol 1 Tablet (of 100 mg) Oral daily HYDROcodone-Acetaminophen 1 Tablet (of 5-325 mg) Oral q 6 hours PRN Levaquin 1 Tablet (of 500 mg) Oral daily for 7 days Lisinopril 1 Tablet (of 40 mg) Oral daily Meloxicam 1 Tablet (of 15 mg) Oral daily Metoprolol Tartrate 1 Tablet (of 50 mg) Oral daily Ondansetron HCl 1 Tablet (of 4 mg) Oral PRN Simvastatin 1 Tablet (of 40 mg) Oral daily tiZANidine HCl 1 Tablet (of 4 mg) Oral PRN Topiramate 1 Tablet (of 100 mg) Oral b.i.d. Family History: Mr. Mata's mother at age 91: heart disease, and cancer of unknown primary. Mr. Mata's father at age 91: myocardial infarction. Mr. Mata's maternal grandmother is . Mr. Mata has 1 brother who is alive: colon cancer. Father was found at age 91, thought to be heart related. He had been treated for lung cancer. His mother had Hodgkin's lymphoma in association with rheumatoid arthritis. She of unrelated causes. A brother at age 38, also presumably of heart disease. Another brother has been treated for colon cancer. A maternal aunt has breast cancer. 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 He is a daily smoker who has smoked 1.0 pack/day for 51 years. He drinks daily. He consumes 2 drinks/day 7 days/week. He has indicated exposure to the following products: cigarettes. Mr. Mata reports the following support systems: lives with spouse, significant other, family, or friends, lives in own house, supportive family/friends willing to assist with needs, and adequate transportation available for expected visits. His diet consists of regular meals. He indicates his activity level as: regular exercise. He has a history of smoking 1 pack of cigarettes daily for 50 years. Alcohol use is estimated at 2 beers daily. He was a heavy drinker in the past, but he cut down years ago . Review Of Symptoms: Constitutional Denies night sweats, excessive fatigue. No recent fever or chills. Energy better last few days. Allergic/Immunologic No reactions. Eyes Denies significant visual changes. No diplopia. No amaurosis. ENMT Denies changes in hearing, sore throat, mouth sores, difficulty or changes in swallowing ability, and/or sinus drainage. Hematologic/Lymphatic Denies easy bruising or bleeding. The patient denies any tender or palpable lymph nodes. Respiratory Denies dyspnea on exertion, chest pain, cough or hemoptysis. Denies orthopnea. Cardiovascular Denies anginal chest pain, palpitations or orthopnea. Gastrointestinal Denies nausea, vomiting, diarrhea, GI bleeding, or constipation. Denies change in bowel habits and/or stool color, no heartburn or early satiety. Genitourinary (M) Denies hematuria, dysuria, increased frequency, urgency, hesitancy or incontinence. Musculoskeletal Denies joint pain, swelling or redness. No decreased range of motion. Integumentary Denies chronic rashes, inflammation, ulcerations or skin changes. Neurologic Denies headache, blurred vision, and no areas of focal weakness or numbness. Normal gait. No sensory problems. Psychiatric Denies insomnia, debbie or mood swings. Has noticed situational depression but feels it is controlled. Vital Signs: Performed on Jan 25, 2020 11:22 Height - 68.00 in Weight - 142.8 lbs (HIGH) BSA - 1.77 sq.m BMI - 21.71 Temperature - 98 F (LOW) Pulse - 90 /min Respiration - 15 /min BP - 133/76 mm(hg) O2 Sat - 97 % Pain - 0,1 - No physically strenuous activity, but ambulatory and able to carry out light or sedentary work (e.g. office work, light house work). (ECOG) Physical Examination: Constitutional Alert, oriented, no acute distress. Skin pink, warm and dry. Head Normocephalic; atraumatic. Eyes Conjunctivae and sclerae are clear and without icterus. Pupils are reactive and equal. ENMT No oral exudates, ulcers, masses, thrush or mucositis. Oropharynx clear. Tongue normal. Neck Supple without masses or thyromegaly. No jugular venous distension. Hematologic/Lymphatic No petechiae or purpura. No tender or palpable lymph nodes in the cervical or supraclavicular areas. Respiratory Lungs are clear to auscultation without rhonchi or wheezing. Cardiovascular Regular rate and rhythm of heart without murmurs,clicks, gallops or rubs. Abdomen Non-tender, non-distended, no masses or ascites. Good bowel sounds noted in all quads. No guarding or rebound tenderness. No pulsatile masses. Back/Spine Non-tender to palpation. Extremities No visible deformities, no cyanosis, clubbing or edema. Musculoskeletal No tenderness or swelling, normal range of motion without obvious weakness. Integumentary No rashes or lesions. Neurologic No sensory or motor deficits, normal cerebellar function, normal gait. Psychiatric Alert and oriented times three. Coherent speech. Verbalizes understanding of our discussions today. Laboratory:Test performed on Jan 17, 2020 08:25 Sodium 137 mmol/L Potassium 4.3 mmol/L Chloride 102 mmol/L CO2 22 mmol/L Anion Gap 17.3 BUN 9 mg/dL Creatinine 0.9 mg/dL Cr Clearance (Est) 70.1400 mL/min eGFR 84.4 mL/min Glucose 122 mg/dL Calcium 9.1 mg/dL Protein, Total 6.7 g/dL Albumin 3.5 g/dL Globulin 3.2 g/dL Bilirubin, Total 0.3 mg/dL ALT (SGPT) 14 U/L AST (SGOT) 20 U/L Alkaline Phosphatase 81 IU/L WBC 7.6 10 3/uL RBC 3.21 10 6/uL HGB 11.0 g/dL HCT 34.8 % MCV 108.4 fL MCH 34.3 pg MCHC 31.6 g/dL RDW 19.1 % Platelet Count 450 10 3/cmm MPV 10.9 fL Neutrophils 4.5 10 3/uL Lymphocytes 1.4 10 3/uL Monocytes 1.1 10 3/uL Eosinophils 0.4 10 3/uL Basophils 0.1 10 3/uL Neutrophil % 59.1 % Lymphocyte % 18.8 % Monocyte % 15.0 % Eosinophil % 5.0 % Basophils % 0.7 % CA 19-9 19.14 U/mL CEA 4.1 ng/mL Impression: 1. Patient with adenocarcinoma involving the tail of the pancreas, confirmed by FNA biopsy on 10/27/2019. By clinical evaluation his disease appears to be at least stage T3, N1, though FNA biopsy of periportal lymph node was negative. 2. 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 3. There is CT evidence of a right upper lobe spiculated pulmonary nodule, which is suspicious for neoplasm, but more likely second primary neoplasm rather than metastasis. 4. There is also a possible hepatic metastasis by CT. 5. He has marginal performance status with weight loss and declining activity tolerance. His other medical illnesses include: 6. Hypertension. 7. Hyperlipidemia. 8. Coronary artery disease with previous angioplasty/stent placement. 9. History of gout. 10. History of esophageal stricture with recent EGD/dilatation procedure. On 11/23/2019 he began neoadjuvant chemotherapy with gemcitabine/Abraxane. With the first cycle his day 15 treatment was delayed 1 week due to neutropenia. Other side effects included fatigue and mild nausea. He had mild musculoskeletal/neuropathy symptoms. He was able to continue with cycle 2 on 12/28/2019. At this point he continues to have somewhat marginal performance status, but his abdominal pain has improved significantly. His blood counts are adequate, and he appears to be tolerating the chemotherapy with acceptable toxicity. Mr. Mata had restaging CT of the chest abdomen pelvis on January 16, 2020. The CT of the chest reports the right upper lobe mass noted on the previous scan now shows resolution. Lesion only has a thin wall and has appearance of a cavity. No other lesions are seen there were no effusions. CT of the abdomen/pelvis reports a low-density lesion in the tail the pancreas measuring 1.51 x 4.64 cm. The spleen shows mild enhancement but there is an area of low density which may represent a splenic infarct. Again the splenic artery is interrupted and probably occluded. Left gastric artery is seen originating from the aorta and supplying the stomach. There is a central nonobstructing right renal calculus measuring 0.5 cm. The bones of the lower thorax, lumbar spine, pelvis and hips show osteoarthritis of the lumbar vertebral bodies with degenerative disc disease at L3-L4 and L4-L5. There has been resolution of the lung mass the pancreatic mass has not changed dramatically. It was measured at 2.4 x 5.0 cm on his November 18, 2019 PET scan. I did speak with Dr. Valadez regarding plan of care. Mr. Mata has been advised to pursue 1 more cycle of chemotherapy (3 weeks). We will then refer him back to [place] for consideration of surgery. Hopefully he will be able to stay on track as far as his blood counts are concerned as he is had an extra week off from last cycle. Plan: 1. Proceed with cycle 3 day 8 Abraxane/gemcitabine at current dosing. The current plan is to complete cycle 3 and then refer to Dr Carpenter for possible surgery. 2. Continue same anti-medics unless constipation is identified and then we may need to reconsider the Aloxi. 3. Labs from January 24, 2020 were reviewed in detail discussed with & Mrs. Mata and a copy was given to them. WBC 6.4, hemoglobin 10.7, platelets 561,000 ANC is 4300 potassium 4.0 creatinine 0.7 and LFTs were normal. 01/17/2020: CA 19-9 = 19.14 and CEA = 4.1. 4. We have discussed the need for Eliquis due to initial report of splenic vein thrombosis during his original diagnosis. However he did have splenic infarct so it is felt that this may have been more of a compression from the tumor rather than thrombosis. We will continue to hold off on the Eliquis. 5. We will plan to see him back in 1 week with CBC CMP (labs the day before via [facility] in home card lacer jacquard). He is aware that he may need growth factors again at that time to keep his treatment on course. 6. Mr. Mata was instructed to contact us in the interim should questions or problems arise. Signed By: Alyse Mirza-, CNP Saud Valadez MD <<Signature on File>>
[2020-01-31 14:14] LABS: Hematocrit 28.4 % (42.0-52.0); Hemoglobin 9.2 g/dL (11.7-16.6); Lymphocytes # 0.5 10^3/uL (0.8-4.8); Lymphocytes % 24.8 %; Mean Corpuscular HGB Conc 32.4 g/dL (30.0-36.0); Mean Corpuscular Hemoglobin 34.5 pg (28.0-34.0); Mean Corpuscular Volume 106.4 fL (80-94); Mean Platelet Volume 11.1 fL (7.4-10.4); Monocytes # 0.1 10^3/uL (0.2-0.9); Monocytes % 5.4 %; Neutrophils # 1.4 10^3/uL (1.8-7.7); Neutrophils % 67.3 %; Platelet Count 151 10^3/cmm (130-400); Red Blood Count 2.67 10^6/uL (4.1-5.3); Red Cell Distribution Width 18.9 % (12.1-15.1)
[2020-01-31 14:31] LABS: Alanine Aminotransferase 24 U/L (0-41); Albumin Level 3.1 g/dL (3.5-5.2); Alkaline Phosphatase 60 IU/L (40-130); Anion Gap 16.5 (5-19); Aspartate Amino Transferase 15 U/L (0-40); Blood Urea Nitrogen 19 mg/dL (8-23); Carbon Dioxide 21 mmol/L (22-29); Chloride 108 mmol/L (98-107); Globulin 2.8 g/dL (1.3-4.6); Glomerular Filtration Rate 96.7 mL/min (90-130); Glucose 79 mg/dL (65-115); Osmolality Calculated 287 mOsm/kg (285-295); Potassium 4.5 mmol/L (3.5-5.1); Sodium 141 mmol/L (136-145); Total Bilirubin 0.6 mg/dL (0.15-1.2); Total Protein 5.9 g/dL (6.6-8.7)
--- NOTE | 2020-02-04 09:46 | ONC FU_ITS ---
Dr. Valadez Patient Follow-Up Note Patient: Inocencio Mata Unit #: [id number]: 1955 Dicatated By: Saud Valadez M.D.Date of Visit:Feb 01, 2020 Onc Med Follow-up/Prog Note Chief Complaint: Pancreatic cancer/pulmonary nodule. 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 He also had CT evidence of a right upper lobe pulmonary nodule. He has hypertension, hyperlipidemia, and coronary artery disease. In the past he had required esophageal dilatation for esophageal stricture, and the procedure had recently been repeated at [facility] due to recurrence of difficulty swallowing. On 10/19/2019 he presented to the emergency room with fairly abrupt onset of severe pain in the left side of the abdomen and back. His abdominal CT scan showed a focal area of low-attenuation enlargement within the distal tail of the pancreas measuring 4.3 cm, consistent with acute pancreatitis or pancreatic neoplasm. There were findings compatible with splenic infarct, and there was suspected splenic vein thrombosis. Further evaluation with CT angiogram of the chest, abdomen, and pelvis showed a masslike low-attenuation lesion in the tail of the pancreas measuring 4.1 x 1.4 x 2.3 cm, felt to be most consistent with malignancy. Also noted were enlarged retrogastric, peripancreatic, and splenic hilar lymph nodes. A 1 cm focus of hyperattenuation in the liver was suggestive of possible metastasis. 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 The chest showed a spiculated noncalcified right upper lobe mass with eccentric cavitation measuring 1.7 x 0.9 x 2.0 cm, suspicious for malignancy. Calcified mediastinal and left hilar lymph nodes were consistent with prior granulomatous disease. He was referred to Dr. Carpenter in [place]. On 10/27/2019 he underwent ERCP by Dr. Jose New. A poorly demarcated 3 cm mass was noted in the pancreatic tail and several enlarged lymph nodes were noted in the periportal region. In aggregate these measured greater than 2.3 cm. FNA biopsy of the pancreatic mass did confirm adenocarcinoma. FNA biopsy of periportal lymph node was negative for metastatic carcinoma. In the context of the CT findings, he was recommended to undergo neoadjuvant chemotherapy prior to definitive surgery. He was seen here initially on 11/16/2019. At that point he still had fairly marginal performance status, and he was clearly not appropriate for the FOLFIRINOX chemotherapy regimen. As such, he began neoadjuvant chemotherapy with gemcitabine/Abraxane on 11/23/2019. His other medical illnesses include hypertension, hyperlipidemia, and coronary artery disease. He has had previous angioplasty/stent placement. He has a history of gout, and he also has a history of esophageal stricture requiring dilatation. He has a history of smoking 1 pack of cigarettes daily for 50 years. INTERIM HISTORY: With cycle 1 he was able to complete treatment on days 1 and 8, but his day 15 treatment was delayed 1 week due to neutropenia. It had resolved uneventfully with Neupogen. He also experienced significant fatigue with the chemotherapy. He had only mild nausea. He continued with cycle 2 of gmecitabine/Abraxane on 12/28/2019. His treatment was again put on hold at day 15 due to neutropenia. Restaging CT scans of the chest, abdomen, and pelvis on 01/16/2020 showed no change in the low-density lesion in the tail the pancreas measuring 1.51 x 4.64 cm. The spleen showed mild enhancement but with an area of low density consistent with splenic infarction. The splenic artery was noted to be interrupted and probably occluded. There was no adenopathy or other evidence of metastatic involvement in the abdominal area. There was evidence of resolution of the right upper lobe lung lesion. The lesion was noted to have only a thin wall with the appearance of a cavity, possibly representing a simple cyst. He continued with cycle 3-day 1 treatment on 01/18/2020 and with cycle 3-day 8 treatment on 01/25/2020. He is seen for a scheduled visit. He has been feeling a lot worse since his treatment last week. He has no energy and he feels very weak. He has virtually no activity now. ECOG score is 3. Appetite is poor. He complains that he cannot eat. His weight is down a few more pounds. He has had slight fever which comes and goes, up to 99 degrees, and he has associated chills. He does not have night sweating. He has had no mouth sores. He complains that his breathing is labored. He has cough productive of white sputum. He does not complain of chest pain. He is not having nausea or abdominal pain. Bowel function has been OK. He has frequent urination. He has pain in different areas, but mainly in the lower back, shoulders, and legs. He has a little numbness in his hands. Medications: Allopurinol 1 Tablet (of 100 mg) Oral daily, HYDROcodone-Acetaminophen 1 Tablet (of 5-325 mg) Oral q 6 hours PRN, Levaquin 1 Tablet (of 500 mg) Oral daily for 7 days, Lisinopril 1 Tablet (of 40 mg) Oral daily, Meloxicam 1 Tablet (of 15 mg) Oral daily, Metoprolol Tartrate 1 Tablet (of 50 mg) Oral daily, Ondansetron HCl 1 Tablet (of 4 mg) Oral PRN, Simvastatin 1 Tablet (of 40 mg) Oral daily, tiZANidine HCl 1 Tablet (of 4 mg) Oral PRN, Topiramate 1 Tablet (of 100 mg) Oral b.i.d. Allergies: No Known Allergies. Review of Systems: Constitutional - His energy level is low to non-exsistant. He has no appetite. His weight is down nearly 10 pounds from last visit. He's been having a low grade fever with chills. No hot flashes or night sweats. ECOG score is 3, ENMT - No sinus congestion/drainage. No mouth sores. No sore throat or difficulty swallowing, Hematologic/Lymphatic - He brusies easily, Respiratory - He is having shortness of breath with activity. He has a productive cough with white phelgm. No pleuritic pain or hemoptysis, Cardiovascular - No angina pain. No palpitations, Gastrointestinal - No nausea or vomiting. He has some mild heartburn. No diarrhea or constipation. No blood in the stool or black stools, Genitourinary (M) - No dysuria or hematuria. He has urinary frequency. No urgency or incontinence, Musculoskeletal - He is having generalized pain, Integumentary - No skin complications, Neurologic - No headache or dizziness. He has some numbness in both hands, Psychiatric - No anxiety or depression. He is having difficulty sleeping. Vital Signs: Performed on Feb 01, 2020 12:11 Height - 68.00 in Weight - 133.4 lbs (LOW) BSA - 1.72 sq.m BMI - 20.28 Temperature - 98.0 F (LOW) Pulse - 99 /min Respiration - 24 /min BP - 123/73 mm(hg) O2 Sat - 99 % Pain - 6 Physical Examination: Constitutional - He appears generally weak, Eyes - Sclerae nonicteric. Conjunctivae clear, ENMT - No lesions noted in the oral cavity, Hematologic/Lymphatic - No cervical, clavicular, or axillary adenopathy, Respiratory - Lungs are clear with diminished air movement bilaterally, Cardiovascular - Heart rhythm is regular. There is no murmur, gallop, or rub noted, Abdomen - Soft. Liver is not enlarged. Spleen is not palpable. There is no abdominal mass or ascites noted and there is no inguinal adenopathy, Extremities - No edema, Neurologic - No focal neurologic deficits noted. Lab/Imaging: CBC shows hemoglobin 9.2 g, white blood cell count 2000, and platelet count 151,000. The absolute neutrophil count is 1400. Comprehensive metabolic profile is unremarkable except for decreased albumin at 3.1 g/dL. Impression: 1. Patient with adenocarcinoma involving the tail of the pancreas, confirmed by FNA biopsy on 10/27/2019. By clinical evaluation his disease appears to be at least stage T3, N1, though FNA biopsy of periportal lymph node was negative. 2. 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 3. There is CT evidence of a right upper lobe spiculated pulmonary nodule, which is suspicious for neoplasm, but more likely second primary neoplasm rather than metastasis. 4. There is also a possible hepatic metastasis by CT. 5. He has marginal performance status with weight loss and declining activity tolerance. His other medical illnesses include: 6. Hypertension. 7. Hyperlipidemia. 8. Coronary artery disease with previous angioplasty/stent placement. 9. History of gout. 10. History of esophageal stricture with recent EGD/dilatation procedure. On 11/23/2019 he began neoadjuvant chemotherapy with gemcitabine/Abraxane. With the first cycle his day 15 treatment was delayed 1 week due to neutropenia. Other side effects included fatigue and mild nausea. He had mild musculoskeletal/neuropathy symptoms. He continued with cycle 2 of gmecitabine/Abraxane on 12/28/2019. His treatment was again put on hold at day 15 due to neutropenia. He then continued with cycle 3-day 1 treatment on 01/18/2020 and with cycle 3-day 8 treatment on 01/25/2020. He is seen now at day 15 of cycle 3. He is again neutropenic. He also has been having productive cough and low-grade fever, and he has had a significant decline in his performance status. In the meantime, his restaging CT scans on 01/16/2020 showed no change in the low-density lesion in the tail of the pancreas. There was resolution of the right upper lobe lung lesion with thinning of the wall, with the appearance now more suggestive of a simple cyst rather than a metastatic lesion or second primary malignancy. Plan: His treatment will be put on hold. He will continue antibiotic coverage with Levaquin. In the absence of any clear evidence of response by restaging CT scan, I think it is best now to proceed with surgery, I will discuss that with Dr. Carpenter. Although he has had significant fatigue associated with his chemotherapy, he initially had shown some improvement in his performance status as he recovered from the effects of the splenic infarction, so that I think he may be eligible for oxaliplatin-based chemotherapy in the postoperative setting. Signed By: Saud Valadez M.D. <<Signature on File>>
[2020-02-06] MEDS: sodium chloride 0.9% 1,000 ML 999 ML IV (12:10)
[2020-02-06 12:16] LABS: Basophils % 0.5 %; Eosinophils # 0.1 10^3/uL (0.0-0.8); Eosinophils % 0.6 %; Hematocrit 28.4 % (42.0-52.0); Hemoglobin 9.3 g/dL (11.7-16.6); Lymphocytes # 1.3 10^3/uL (0.8-4.8); Lymphocytes % 16.4 %; Mean Corpuscular HGB Conc 32.7 g/dL (30.0-36.0); Mean Corpuscular Hemoglobin 34.2 pg (28.0-34.0); Mean Corpuscular Volume 104.4 fL (80-94); Monocytes # 0.9 10^3/uL (0.2-0.9); Monocytes % 11.4 %; Neutrophils # 5.4 10^3/uL (1.8-7.7); Neutrophils % 67.3 %; Nucleated Red Blood Cells % 0 %; Platelet Count 650 10^3/cmm (130-400); Red Blood Count 2.72 10^6/uL (4.1-5.3); Red Cell Distribution Width 18.9 % (12.1-15.1); White Blood Count 8.1 10^3/uL (4.0-10.0)
[2020-02-06 12:33] LABS: Alanine Aminotransferase 14 U/L (0-41); Albumin Level 3.1 g/dL (3.5-5.2); Alkaline Phosphatase 58 IU/L (40-130); Anion Gap 15.7 (5-19); Aspartate Amino Transferase 26 U/L (0-40); Blood Urea Nitrogen 15 mg/dL (8-23); Carbon Dioxide 23 mmol/L (22-29); Chloride 102 mmol/L (98-107); Globulin 3.2 g/dL (1.3-4.6); Glomerular Filtration Rate 84.4 mL/min (90-130); Glucose 109 mg/dL (65-115); Osmolality Calculated 281 mOsm/kg (285-295); Potassium 3.7 mmol/L (3.5-5.1); Sodium 137 mmol/L (136-145); Total Bilirubin 0.4 mg/dL (0.15-1.2); Total Protein 6.3 g/dL (6.6-8.7)
[2020-02-06 13:46] VITALS: RESP 16; O2SAT 97
[2020-02-06] MEDS: HYDROmorphone 1 mg/mL INJ 1 mL 2 MG IV (13:46)
[2020-02-06 14:34] LABS: Protein Urine Neg (Negative); Specific Gravity, Urine 1.015 (1.005-1.030); Urine Appearance Clear (CLEAR); Urine Color Yellow (Yellow)
[2020-02-06 14:35] LABS: Bacteria Urine 1+; Bilirubin Urine Neg (NEGATIVE); Blood Urine Neg (Negative); Glucose Urine UA Norm (Normal); Ketones Urine Negative (Negative); Leukocyte Esterase Urine Negative (Negative); Mucus Urine 1+; Nitrate Urine Negative (Negative); Renal Epithelial Cells Urine 0-4 /hpf; Squamous Epithelial Cell Urine 0-4 (0-5); Urobilinogen Urine Norm (Negative); WBC Urine 0-4 /hpf (0-5)
[2020-02-06 14:36] LABS: Add Urine Culture? No; Hyaline Casts Urine 0-4
[2020-02-06] MEDS: ondansetron 2 mg/ML SDV 2 mL 4 MG IV (15:53)
[2020-02-08] MEDS: sodium chloride 0.9% 1,000 ML 999 ML IV (09:25)
[2020-02-08 10:10] VITALS: RESP 16; O2SAT 93
[2020-02-08] MEDS: HYDROmorphone 1 mg/mL INJ 1 mL 2 MG IV (10:10)
== END 2020-02-13 23:59 | disposition home or self-care (01) ==
LOC: ONCMED 07:48
PROVIDERS: Nurse Practitioner; Family Provider Family Medicine; PCP Family Medicine; Visit Provider Internal Medicine Medical Oncology
DX: Z51.11 Encounter for antineoplastic chemotherapy (principal); C25.2 Malignant neoplasm of tail of pancreas; G89.3 Neoplasm related pain (acute) (chronic); E86.0 Dehydration; R11.0 Nausea; R91.8 Other nonspecific abnormal finding of lung field; D70.1 Agranulocytosis secondary to cancer chemotherapy; T45.1X5A Adverse effect of antineoplastic and immunosuppressive drugs, initial encounter; R05 Cough; R50.9 Fever, unspecified; D73.5 Infarction of spleen; I10 Essential (primary) hypertension; E78.5 Hyperlipidemia, unspecified; I25.10 Atherosclerotic heart disease of native coronary artery without angina pectoris; F17.210 Nicotine dependence, cigarettes, uncomplicated; M10.9 Gout, unspecified; F10.20 Alcohol dependence, uncomplicated; M19.90 Unspecified osteoarthritis, unspecified site; Z79.891 Long term (current) use of opiate analgesic; Z79.899 Other long term (current) drug therapy; Z95.5 Presence of coronary angioplasty implant and graft
CPT/HCPCS: 71260; 74177; 80053; 81001; 82378; 85025; 86301; 87040; 96361; 96365; 96367; 96374; 96375; 96413; 96417; 99214; J1100; J1170; J2405; J3490; J7030; J7050; J9201; J9264

== ENCOUNTER 2020-04-11 06:47 | Outpatient (RCR) | payer MEDICARE, OTHER, SELFPAY ==
--- NOTE | 2020-03-23 17:28 | ONC FU_ITS ---
Dr. Valadez Patient Follow-Up Note Patient: Inocencio Mata Unit #: [id number]: 1955 Dicatated By: Saud Valadez M.D.Date of Visit:March 22, 2020 Onc Med Follow-up/Prog Note Chief Complaint: Pancreatic cancer/pulmonary nodule. 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 He also had CT evidence of a right upper lobe pulmonary nodule. He has hypertension, hyperlipidemia, and coronary artery disease. In the past he had required esophageal dilatation for esophageal stricture, and the procedure had recently been repeated at [facility] due to recurrence of difficulty swallowing. On 10/19/2019 he presented to the emergency room with fairly abrupt onset of severe pain in the left side of the abdomen and back. His abdominal CT scan showed a focal area of low-attenuation enlargement within the distal tail of the pancreas measuring 4.3 cm, consistent with acute pancreatitis or pancreatic neoplasm. There were findings compatible with splenic infarct, and there was suspected splenic vein thrombosis. Further evaluation with CT angiogram of the chest, abdomen, and pelvis showed a masslike low-attenuation lesion in the tail of the pancreas measuring 4.1 x 1.4 x 2.3 cm, felt to be most consistent with malignancy. Also noted were enlarged retrogastric, peripancreatic, and splenic hilar lymph nodes. A 1 cm focus of hyperattenuation in the liver was suggestive of possible metastasis. 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 The chest showed a spiculated noncalcified right upper lobe mass with eccentric cavitation measuring 1.7 x 0.9 x 2.0 cm, suspicious for malignancy. Calcified mediastinal and left hilar lymph nodes were consistent with prior granulomatous disease. He was referred to Dr. Carpenter in [place]. On 10/27/2019 he underwent ERCP by Dr. Jose New. A poorly demarcated 3 cm mass was noted in the pancreatic tail and several enlarged lymph nodes were noted in the periportal region. In aggregate these measured greater than 2.3 cm. FNA biopsy of the pancreatic mass did confirm adenocarcinoma. FNA biopsy of periportal lymph node was negative for metastatic carcinoma. In the context of the CT findings, he was recommended to undergo neoadjuvant chemotherapy prior to definitive surgery. He was seen here initially on 11/16/2019. At that point he still had fairly marginal performance status, and he was clearly not appropriate for the FOLFIRINOX chemotherapy regimen. As such, he began neoadjuvant chemotherapy with gemcitabine/Abraxane on 11/23/2019. His other medical illnesses include hypertension, hyperlipidemia, and coronary artery disease. He has had previous angioplasty/stent placement. He has a history of gout, and he also has a history of esophageal stricture requiring dilatation. He has a history of smoking 1 pack of cigarettes daily for 50 years. INTERIM HISTORY: With cycle 1 he was able to complete treatment on days 1 and 8, but his day 15 treatment was delayed 1 week due to neutropenia. It had resolved uneventfully with Neupogen. He also experienced significant fatigue with the chemotherapy. He had only mild nausea. He continued with cycle 2 of gmecitabine/Abraxane on 12/28/2019. His treatment was again put on hold at day 15 due to neutropenia. Restaging CT scans of the chest, abdomen, and pelvis on 01/16/2020 showed no change in the low-density lesion in the tail the pancreas measuring 1.51 x 4.64 cm. The spleen showed mild enhancement but with an area of low density consistent with splenic infarction. The splenic artery was noted to be interrupted and probably occluded. There was no adenopathy or other evidence of metastatic involvement in the abdominal area. There was evidence of resolution of the right upper lobe lung lesion. The lesion was noted to have only a thin wall with the appearance of a cavity, possibly representing a simple cyst. He continued with cycle 3-day 1 treatment on 01/18/2020 and with cycle 3-day 8 treatment on 01/25/2020. He then became profoundly weak, and he received no further chemotherapy. He did show gradual recovery from the chemotherapy. On 02/27/2020 he underwent exploratory laparotomy with left pancreatectomy and splenectomy, splenic artery lymph node dissection, partial gastrectomy, and omental pedicle flap. Grossly there was no evidence of metastatic disease, but the stomach overlying the pancreatic mass was adherent to it with suspected invasion. Pathology showed residual poorly differentiated ductal adenocarcinoma, ypT2 with 1 mm retroperitoneal margin and with involvement of 2/14 lymph nodes, ypN1. He is seen for a followup visit. He has been feeling better as he continues to show recovery from the chemotherapy and the surgery. He says his energy is getting better and he is getting stronger every day. 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 His ECOG score is 2. His appetite also is getting better, but he does have early satiety and he also complains of postprandial bloating. He has lost weight again. He does not have fever or night sweats. He has no shortness of breath, cough, or chest pain. He has just occasional nausea. Bowel function has been pretty good with senna. He has no complaints. He has no significant joint or bone pain. 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 Medications: Allopurinol 1 Tablet (of 100 mg) Oral daily, HYDROcodone-Acetaminophen 1 Tablet (of 5-325 mg) Oral q 6 hours PRN, Lisinopril 1 Tablet (of 40 mg) Oral daily, Meloxicam 1 Tablet (of 15 mg) Oral daily, Metoprolol Tartrate 1 Tablet (of 50 mg) Oral daily, Ondansetron HCl 1 Tablet (of 4 mg) Oral PRN, Simvastatin 1 Tablet (of 40 mg) Oral daily, tiZANidine HCl 1 Tablet (of 4 mg) Oral PRN, Topiramate 1 Tablet (of 100 mg) Oral b.i.d. Allergies: No Known Allergies. Review of Systems: Constitutional - His energy level is getting better day by day. His appetite also is getting better, but he has early satiety. No hot flashes or night sweats. ECOG score is 3, ENMT - No sinus congestion/drainage. No mouth sores. No sore throat or difficulty swallowing, Hematologic/Lymphatic - He brusies easily, Respiratory - He denies shortness of breath. No cough. No pleuritic pain or hemoptysis, Cardiovascular - No angina pain. No palpitations, Gastrointestinal - No nausea or vomiting. He continues to report heartburn. He reports discomfort at surgical sites. No diarrhea or constipation. No blood in the stool or black stools, Genitourinary (M) - No dysuria or hematuria. He has urinary frequency. No urgency or incontinence, Musculoskeletal - He has no significant joint or bone pain, Integumentary - No skin complications, Neurologic - No headache, occasional dizziness. He has some numbness in fingers, Psychiatric - No anxiety or depression. He is sleeping better. Vital Signs: Performed on March 22, 2020 08:40 Height - 68.00 in Weight - 130.2 lbs (LOW) BSA - 1.70 sq.m BMI - 19.80 Temperature - 96.9 F (LOW) Pulse - 103 /min (HIGH) Respiration - 18 /min BP - 129/87 mm(hg) O2 Sat - 97 % Pain - 1 Physical Examination: Constitutional - He appears somewhat weak generally, Eyes - Sclerae nonicteric. Conjunctivae clear, ENMT - No lesions noted in the oral cavity, Hematologic/Lymphatic - No cervical, clavicular, or axillary adenopathy, Respiratory - Lungs are clear with diminished air movement bilaterally, Cardiovascular - Heart rhythm is regular. There is no murmur, gallop, or rub noted, Abdomen - Soft. His incision appears well-healed. Liver is not enlarged. There is no abdominal mass or ascites noted and there is no inguinal adenopathy, Extremities - No edema, Neurologic - No focal neurologic deficits noted. Impression: 1. Patient with adenocarcinoma involving the tail of the pancreas, confirmed by FNA biopsy on 10/27/2019. By clinical evaluation his disease appeared to be at least stage T3, N1, though FNA biopsy of periportal lymph node was negative. 2. 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 3. There was CT evidence of a right upper lobe spiculated pulmonary nodule, which was felt to be suspicious for neoplasm, but more likely second primary neoplasm rather than metastasis. 4. There was also a possible hepatic metastasis by CT. 5. He had marginal performance status with weight loss and declining activity tolerance. His other medical illnesses include: 6. Hypertension. 7. Hyperlipidemia. 8. Coronary artery disease with previous angioplasty/stent placement. 9. History of gout. 10. History of esophageal stricture with recent EGD/dilatation procedure. On 11/23/2019 he began neoadjuvant chemotherapy with gemcitabine/Abraxane. With the first cycle his day 15 treatment was delayed 1 week due to neutropenia. Other side effects included fatigue and mild nausea. He had mild musculoskeletal/neuropathy symptoms. He continued with cycle 2 of gmecitabine/Abraxane on 12/28/2019. His treatment was again put on hold at day 15 due to neutropenia. He then continued with cycle 3-day 1 treatment on 01/18/2020 and with cycle 3-day 8 treatment on 01/25/2020. He then became profoundly weak, and he received no further chemotherapy. On 02/27/2020 he underwent exploratory laparotomy with left pancreatectomy and splenectomy, splenic artery lymph node dissection, partial gastrectomy, and omental pedicle flap. Grossly there was no evidence of metastatic disease, but the stomach overlying the pancreatic mass was adherent to it with suspected invasion. Pathology showed residual poorly differentiated ductal adenocarcinoma with 1 mm retroperitoneal margin and with involvement of 2/14 lymph nodes. Final staging was ypT2, ypN1. Plan: At his initial presentation, he had very marginal performance status, that was mainly because of the splenic infarction. At that point, though, he was not a suitable candidate for FOLFIRINOX chemotherapy, and his neoadjuvant treatment was limited to gemcitabine/Abraxane. As he now has been confirmed to have lymph node involvement, I am going to recommend additional postoperative adjuvant chemotherapy with modified FOLFOX. Due to the side effects he experienced with his third cycle of gem/Abraxane, he is somewhat reluctant to attempt any further chemotherapy treatment. However, after some discussion he is agreeable and I will tentatively plan to have him return in 2 weeks to begin postoperative adjuvant FOLFOX. I did review potential side effects, including the anticipated neuropathy with oxalic [place]. I did not discuss this with him yet, but with the close retroperitoneal margin, I think he also should be considered for postop radiation. Signed By: Saud Valadez M.D. <<Signature on File>>
[2020-04-09 09:10] LABS: Basophils # 0.1 10^3/uL (0.0-0.1); Basophils % 1.1 %; Eosinophils # 1.4 10^3/uL (0.0-0.8); Eosinophils % 15.2 %; Hematocrit 44.1 % (42.0-52.0); Hemoglobin 14.1 g/dL (11.7-16.6); Lymphocytes # 2.9 10^3/uL (0.8-4.8); Lymphocytes % 31.4 %; Mean Corpuscular Hemoglobin 33.5 pg (28.0-34.0); Mean Corpuscular Volume 104.8 fL (80-94); Mean Platelet Volume 9.5 fL (7.4-10.4); Monocytes # 0.8 10^3/uL (0.2-0.9); Monocytes % 8.5 %; Neutrophils % 43.5 %; Nucleated Red Blood Cells % 0 %; Platelet Count 472 10^3/cmm (130-400); Red Blood Count 4.21 10^6/uL (4.1-5.3); Red Cell Distribution Width 15.2 % (12.1-15.1); White Blood Count 9.3 10^3/uL (4.0-10.0)
[2020-04-09] MEDS: dextrose 5% 250 ML 75 ML IV (09:48)
[2020-04-09 09:54] LABS: Carcinoembryonic Antigen 1.3 ng/mL (0.0-4.7)
--- NOTE | 2020-04-09 09:54 | ONC FU_ITS ---
[facility] Patient Note Patient: Inocencio Mata Unit #: [id number]: 1955 Dictated By: Alyse MirzaDate of Visit: April 09, 2020 Onc MED Follow-Up/Prog Note Chief Complaint: Pancreatic cancer/pulmonary nodule. 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 He also had CT evidence of a right upper lobe pulmonary nodule. He has hypertension, hyperlipidemia, and coronary artery disease. In the past he had required esophageal dilatation for esophageal stricture, and the procedure had recently been repeated at [facility] due to recurrence of difficulty swallowing. On 10/19/2019 he presented to the emergency room with fairly abrupt onset of severe pain in the left side of the abdomen and back. His abdominal CT scan showed a focal area of low-attenuation enlargement within the distal tail of the pancreas measuring 4.3 cm, consistent with acute pancreatitis or pancreatic neoplasm. There were findings compatible with splenic infarct, and there was suspected splenic vein thrombosis. Further evaluation with CT angiogram of the chest, abdomen, and pelvis showed a masslike low-attenuation lesion in the tail of the pancreas measuring 4.1 x 1.4 x 2.3 cm, felt to be most consistent with malignancy. Also noted were enlarged retrogastric, peripancreatic, and splenic hilar lymph nodes. A 1 cm focus of hyperattenuation in the liver was suggestive of possible metastasis. 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 The chest showed a spiculated noncalcified right upper lobe mass with eccentric cavitation measuring 1.7 x 0.9 x 2.0 cm, suspicious for malignancy. Calcified mediastinal and left hilar lymph nodes were consistent with prior granulomatous disease. He was referred to Dr. Carpenter in [place]. On 10/27/2019 he underwent ERCP by Dr. Jose New. A poorly demarcated 3 cm mass was noted in the pancreatic tail and several enlarged lymph nodes were noted in the periportal region. In aggregate these measured greater than 2.3 cm. FNA biopsy of the pancreatic mass did confirm adenocarcinoma. FNA biopsy of periportal lymph node was negative for metastatic carcinoma. In the context of the CT findings, he was recommended to undergo neoadjuvant chemotherapy prior to definitive surgery. He was seen here initially on 11/16/2019. At that point he still had fairly marginal performance status, and he was clearly not appropriate for the FOLFIRINOX chemotherapy regimen. As such, he began neoadjuvant chemotherapy with gemcitabine/Abraxane on 11/23/2019. His other medical illnesses include hypertension, hyperlipidemia, and coronary artery disease. He has had previous angioplasty/stent placement. He has a history of gout, and he also has a history of esophageal stricture requiring dilatation. He has a history of smoking 1 pack of cigarettes daily for 50 years. INTERIM HISTORY: With cycle 1 he was able to complete treatment on days 1 and 8, but his day 15 treatment was delayed 1 week due to neutropenia. It had resolved uneventfully with Neupogen. He also experienced significant fatigue with the chemotherapy. He had only mild nausea. He continued with cycle 2 of gmecitabine/Abraxane on 12/28/2019. His treatment was again put on hold at day 15 due to neutropenia. Restaging CT scans of the chest, abdomen, and pelvis on 01/16/2020 showed no change in the low-density lesion in the tail the pancreas measuring 1.51 x 4.64 cm. The spleen showed mild enhancement but with an area of low density consistent with splenic infarction. The splenic artery was noted to be interrupted and probably occluded. There was no adenopathy or other evidence of metastatic involvement in the abdominal area. There was evidence of resolution of the right upper lobe lung lesion. The lesion was noted to have only a thin wall with the appearance of a cavity, possibly representing a simple cyst. He continued with cycle 3-day 1 treatment on 01/18/2020 and with cycle 3-day 8 treatment on 01/25/2020. He then became profoundly weak, and he received no further chemotherapy. He did show gradual recovery from the chemotherapy. On 02/27/2020 he underwent exploratory laparotomy with left pancreatectomy and splenectomy, splenic artery lymph node dissection, partial gastrectomy, and omental pedicle flap. Grossly there was no evidence of metastatic disease, but the stomach overlying the pancreatic mass was adherent to it with suspected invasion. Pathology showed residual poorly differentiated ductal adenocarcinoma, ypT2 with 1 mm retroperitoneal margin and with involvement of 2/14 lymph nodes, ypN1. Mr. Mata is here today to begin his first cycle of FOLFOX. He has no new concerns. He denies any fever or chills or any signs of infection for at least the last 72 hours. He continues to have poor appetite and is not eating well. He states he will drink a couple of ensures a day and that seems to help some. He denies any new pain. He has abdominal tenderness from his surgery but states he gets better every day. His energy is gradually improving. He states he is getting stronger every day. 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 He denies any nausea or vomiting. He has had no diarrhea or constipation. 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 His ECOG is 2. Past Medical History: Coronary artery disease Gout History of esophageal stricture Hyperlipidemia Hypertension Migraine headaches Past Surgical History: ERCP with FNA biopsy of pancreatic mass and periportal lymph node in 2018 Placement of Port-A-Cath venous access device in 2019 Coronary angioplasty/stent placement in 2006 Allergies: No Known Allergies. Medications: Allopurinol 1 Tablet (of 100 mg) Oral daily HYDROcodone-Acetaminophen 1 Tablet (of 5-325 mg) Oral q 6 hours PRN Lisinopril 1 Tablet (of 40 mg) Oral daily Meloxicam 1 Tablet (of 15 mg) Oral daily Metoprolol Tartrate 1 Tablet (of 50 mg) Oral daily Ondansetron HCl 1 Tablet (of 4 mg) Oral PRN Simvastatin 1 Tablet (of 40 mg) Oral daily tiZANidine HCl 1 Tablet (of 4 mg) Oral PRN Topiramate 1 Tablet (of 100 mg) Oral b.i.d. Family History: Mr. Mata's mother at age 91: heart disease, and cancer of unknown primary. Mr. Mata's father at age 91: myocardial infarction. Mr. Mata's maternal grandmother is . Mr. Mata has 1 brother who is alive: colon cancer. Father was found at age 91, thought to be heart related. He had been treated for lung cancer. His mother had Hodgkin's lymphoma in association with rheumatoid arthritis. She of unrelated causes. A brother at age 38, also presumably of heart disease. Another brother has been treated for colon cancer. A maternal aunt has breast cancer. 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 He is a daily smoker who has smoked 1.0 pack/day for 51 years. He drinks daily. He consumes 2 drinks/day 7 days/week. He has indicated exposure to the following products: cigarettes. Mr. Mata reports the following support systems: lives with spouse, significant other, family, or friends, lives in own house, supportive family/friends willing to assist with needs, and adequate transportation available for expected visits. His diet consists of regular meals. He indicates his activity level as: regular exercise. He has a history of smoking 1 pack of cigarettes daily for 50 years. Alcohol use is estimated at 2 beers daily. He was a heavy drinker in the past, but he cut down years ago . Review Of Symptoms: Constitutional Denies night sweats, excessive fatigue. No recent fever or chills. Energy better last few days. I feel stronger every day . No appetite. Allergic/Immunologic No reactions. Eyes Denies significant visual changes. No diplopia. No amaurosis. ENMT Denies changes in hearing, sore throat, mouth sores, difficulty or changes in swallowing ability, and/or sinus drainage. Hematologic/Lymphatic Denies easy bruising or bleeding. The patient denies any tender or palpable lymph nodes. Respiratory Denies dyspnea on exertion, chest pain, cough or hemoptysis. Denies orthopnea. Cardiovascular Denies anginal chest pain, palpitations or orthopnea. Gastrointestinal Denies nausea, vomiting, diarrhea, GI bleeding, or constipation. Denies change in bowel habits and/or stool color, no heartburn or early satiety. Abdominal tenderness but not pain Genitourinary (M) Denies hematuria, dysuria, increased frequency, urgency, hesitancy or incontinence. Musculoskeletal Denies joint pain, swelling or redness. No decreased range of motion. Integumentary Denies chronic rashes, inflammation, ulcerations or skin changes. Neurologic Denies headache, blurred vision, and no areas of focal weakness or numbness. Normal gait. No sensory problems. Psychiatric Denies insomnia, debbie or mood swings. Has noticed situational depression but feels it is controlled. Vital Signs: Performed on April 09, 2020 08:57 Height - 68.00 in Weight - 129.4 lbs (LOW) BSA - 1.70 sq.m BMI - 19.68 Temperature - 97.7 F (LOW) Pulse - 72 /min Respiration - 18 /min BP - 153/84 mm(hg) (HIGH) O2 Sat - 98 % Pain - 1,2 - Ambulatory/capable of all self-care, unable to perform any work activities. Up and about more than 50% of waking hours. (ECOG) Physical Examination: Constitutional Alert, oriented, no acute distress. Skin pink, warm and dry. Head Normocephalic; atraumatic. Eyes Conjunctivae and sclerae are clear and without icterus. Pupils are reactive and equal. Neck Supple without masses or thyromegaly. No jugular venous distension. Hematologic/Lymphatic No petechiae or purpura. No tender or palpable lymph nodes in the cervical or supraclavicular areas. Respiratory Lungs are clear to auscultation without rhonchi or wheezing. Cardiovascular Regular rate and rhythm of heart without murmurs,clicks, gallops or rubs. Chest Right chest wall venous access site is unremarkable. Abdomen Non-tender, non-distended, no masses or ascites. Back/Spine Non-tender to palpation. Extremities No visible deformities, no cyanosis, clubbing or edema. Musculoskeletal No tenderness or swelling, normal range of motion without obvious weakness. Integumentary No rashes or lesions. Neurologic No sensory or motor deficits, normal cerebellar function, normal gait. Psychiatric Alert and oriented times three. Coherent speech. Verbalizes understanding of our discussions today. Laboratory:Test performed on April 09, 2020 08:45 WBC 9.3 10 3/uL RBC 4.21 10 6/uL HGB 14.1 g/dL HCT 44.1 % MCV 104.8 fL MCH 33.5 pg MCHC 32.0 g/dL RDW 15.2 % Platelet Count 472 10 3/cmm MPV 9.5 fL Neutrophils 4.0 10 3/uL Lymphocytes 2.9 10 3/uL Monocytes 0.8 10 3/uL Eosinophils 1.4 10 3/uL Basophils 0.1 10 3/uL Neutrophil % 43.5 % Lymphocyte % 31.4 % Monocyte % 8.5 % Eosinophil % 15.2 % Basophils % 1.1 % Test performed on Feb 06, 2020 11:55 Sodium 137 mmol/L Potassium 3.7 mmol/L Chloride 102 mmol/L CO2 23 mmol/L Anion Gap 15.7 BUN 15 mg/dL Creatinine 0.9 mg/dL Cr Clearance (Est) 70.1400 mL/min eGFR 84.4 mL/min Glucose 109 mg/dL Calcium 9.0 mg/dL Protein, Total 6.3 g/dL Albumin 3.1 g/dL Globulin 3.2 g/dL Bilirubin, Total 0.4 mg/dL ALT (SGPT) 14 U/L AST (SGOT) 26 U/L Alkaline Phosphatase 58 IU/L Test performed on Jan 17, 2020 08:25 CA 19-9 19.14 U/mL CEA 4.1 ng/mL Test performed on Jan 10, 2020 07:05 CBC Slide Review Slide Review Perform SLIDE REVIEW AGREES WITH AUTOMATED RESULTS ST Test performed on Dec 13, 2019 07:45 Manual Bands % 18.0 % Manual Lymphs % 28 % Manual Monos % 8.0 % Metamyelocytes % 11.0 % Myelocytes % 7.0 % Manual Bands Abs 2.2 10 3/cmm Manual Monocytes Abs 1.0 10 3/cmm Manual Eosinophils Abs 0.2 10 3/cmm Test performed on Nov 28, 2019 11:50 Manual Eosinophils 1.6 % Manual Basophils 0.3 % Impression: 1. Patient with adenocarcinoma involving the tail of the pancreas, confirmed by FNA biopsy on 10/27/2019. By clinical evaluation his disease appeared to be at least stage T3, N1, though FNA biopsy of periportal lymph node was negative. 2. 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 3. There was CT evidence of a right upper lobe spiculated pulmonary nodule, which was felt to be suspicious for neoplasm, but more likely second primary neoplasm rather than metastasis. 4. There was also a possible hepatic metastasis by CT. 5. He had marginal performance status with weight loss and declining activity tolerance. His other medical illnesses include: 6. Hypertension. 7. Hyperlipidemia. 8. Coronary artery disease with previous angioplasty/stent placement. 9. History of gout. 10. History of esophageal stricture with recent EGD/dilatation procedure. On 11/23/2019 he began neoadjuvant chemotherapy with gemcitabine/Abraxane. With the first cycle his day 15 treatment was delayed 1 week due to neutropenia. Other side effects included fatigue and mild nausea. He had mild musculoskeletal/neuropathy symptoms. He continued with cycle 2 of gmecitabine/Abraxane on 12/28/2019. His treatment was again put on hold at day 15 due to neutropenia. He then continued with cycle 3-day 1 treatment on 01/18/2020 and with cycle 3-day 8 treatment on 01/25/2020. He then became profoundly weak, and he received no further chemotherapy. On 02/27/2020 he underwent exploratory laparotomy with left pancreatectomy and splenectomy, splenic artery lymph node dissection, partial gastrectomy, and omental pedicle flap. Grossly there was no evidence of metastatic disease, but the stomach overlying the pancreatic mass was adherent to it with suspected invasion. Pathology showed residual poorly differentiated ductal adenocarcinoma with 1 mm retroperitoneal margin and with involvement of 2/14 lymph nodes. Final staging was ypT2, ypN1. At his initial presentation, he had very marginal performance status, that was mainly because of the splenic infarction. At that point, though, he was not a suitable candidate for FOLFIRINOX chemotherapy, and his neoadjuvant treatment was limited to gemcitabine/Abraxane. As he now has been confirmed to have lymph node involvement, Dr Valadez has recommended additional postoperative adjuvant chemotherapy with modified FOLFOX. We will also consider postop radiation due to the close retroperitoneal margin. Mr Mata will begin his first cycle of FOLFOX on 04/09/2020. Plan: 1. Proceed with cycle 1 day 1 FOLFOX. 2. Refill Compazine and dexamethasone taper. I have asked him to start the dexamethasone taper tonight due to his lack of appetite. 3. CBC from today was reviewed in detail and discussed with Mr & Mrs Dsouza. WBC 8.1, Hgb 14.1 and platelets 472,000 and his ANC is 4000 today. 4. I have discussed with him side effects of the oxaliplatin in detail-particularly the cold-induced neuropathy. He has residual baseline neuropathy now. We also discussed possibility of diarrhea, nausea vomiting, increased fatigue, low blood counts and change of taste. 5. We will have low tolerance for side effects with Mr. Mata. He is started off without the 5-FU bolus but full dose oxaliplatin. We can decrease his dose. However if he has intolerance of the chemotherapy plan we can consider radiation. I did discuss this with him and Mrs. Dsouza and they verbalized understanding. 6. We will plan to see him back in 1 week for CBC via port for chemo monitoring. 7. We will plan to see him back in 2 weeks with CBC CMP for consideration of cycle 2 FOLFOX. 8. Mr. Mata is instructed to contact us in the interim should questions or problems arise. Signed By: Alyse Mirza-, AOCNP Saud Valadez MD<<Signature on File>>
[2020-04-09 09:57] LABS: Cancer Antigen 19 9 12.76 U/mL (0-35)
[2020-04-09 10:05] LABS: Alanine Aminotransferase 7 U/L (0-41); Albumin Level 3.8 g/dL (3.5-5.2); Alkaline Phosphatase 67 IU/L (40-130); Anion Gap 14.7 (5-19); Aspartate Amino Transferase 16 U/L (0-40); Blood Urea Nitrogen 10 mg/dL (8-23); Calcium 9.5 mg/dL (8.5-10.5); Carbon Dioxide 24 mmol/L (22-29); Chloride 107 mmol/L (98-107); Glomerular Filtration Rate 74.8 mL/min (90-130); Glucose 108 mg/dL (65-115); Osmolality Calculated 291 mOsm/kg (285-295); Potassium 3.7 mmol/L (3.5-5.1); Sodium 142 mmol/L (136-145); Total Bilirubin 0.3 mg/dL (0.15-1.2); Total Protein 6.8 g/dL (6.6-8.7)
== END 2020-04-14 23:59 | disposition home or self-care (01) ==
LOC: ONCMED 06:47
PROVIDERS: PCP Family Medicine; Visit Provider Nurse Practitioner
DX: Z51.11 Encounter for antineoplastic chemotherapy (principal); C25.2 Malignant neoplasm of tail of pancreas; I25.10 Atherosclerotic heart disease of native coronary artery without angina pectoris; E78.5 Hyperlipidemia, unspecified; I10 Essential (primary) hypertension; G43.909 Migraine, unspecified, not intractable, without status migrainosus; M10.9 Gout, unspecified; K22.2 Esophageal obstruction; Z79.899 Other long term (current) drug therapy
CPT/HCPCS: 80053; 82378; 85025; 86301; 96367; 96368; 96413; 96415; 96416; 96523; 99214; J0640; J1100; J2469; J3490; J9263

== ENCOUNTER 2020-05-09 06:45 | Outpatient (RCR) | payer MEDICARE, OTHER, SELFPAY ==
[2020-04-17 08:28] LABS: Basophils % 0.5 %; Eosinophils # 1.1 10^3/uL (0.0-0.8); Eosinophils % 14.3 %; Hematocrit 44.8 % (42.0-52.0); Hemoglobin 14.6 g/dL (11.7-16.6); Lymphocytes # 2.9 10^3/uL (0.8-4.8); Lymphocytes % 37.7 %; Mean Corpuscular HGB Conc 32.6 g/dL (30.0-36.0); Mean Corpuscular Hemoglobin 33.3 pg (28.0-34.0); Mean Corpuscular Volume 102.3 fL (80-94); Mean Platelet Volume 9.9 fL (7.4-10.4); Monocytes # 0.7 10^3/uL (0.2-0.9); Monocytes % 8.7 %; Neutrophils # 2.9 10^3/uL (1.8-7.7); Neutrophils % 38.5 %; Nucleated Red Blood Cells % 0.4 %; Platelet Count 312 10^3/cmm (130-400); Red Blood Count 4.38 10^6/uL (4.1-5.3); Red Cell Distribution Width 14.6 % (12.1-15.1); White Blood Count 7.6 10^3/uL (4.0-10.0)
[2020-04-17 08:41] LABS: Alanine Aminotransferase 12 U/L (0-41); Albumin Level 3.8 g/dL (3.5-5.2); Alkaline Phosphatase 59 IU/L (40-130); Anion Gap 18.4 (5-19); Aspartate Amino Transferase 20 U/L (0-40); Blood Urea Nitrogen 12 mg/dL (8-23); Calcium 9.9 mg/dL (8.5-10.5); Carbon Dioxide 23 mmol/L (22-29); Chloride 106 mmol/L (98-107); Globulin 3.1 g/dL (1.3-4.6); Glomerular Filtration Rate 84.4 mL/min (90-130); Glucose 122 mg/dL (65-115); Magnesium 2.2 mg/dL (1.7-2.3); Osmolality Calculated 295 mOsm/kg (285-295); Potassium 3.4 mmol/L (3.5-5.1); Sodium 144 mmol/L (136-145); Total Bilirubin 0.4 mg/dL (0.15-1.2); Total Protein 6.9 g/dL (6.6-8.7)
[2020-04-23 08:24] LABS: Basophils # 0.1 10^3/uL (0.0-0.1); Eosinophils # 0.4 10^3/uL (0.0-0.8); Eosinophils % 6.5 %; Hematocrit 43.9 % (42.0-52.0); Hemoglobin 14.2 g/dL (11.7-16.6); Lymphocytes # 2.8 10^3/uL (0.8-4.8); Lymphocytes % 44.5 %; Mean Corpuscular HGB Conc 32.3 g/dL (30.0-36.0); Mean Corpuscular Hemoglobin 32.9 pg (28.0-34.0); Mean Corpuscular Volume 101.6 fL (80-94); Monocytes % 15.2 %; Neutrophils # 2.1 10^3/uL (1.8-7.7); Neutrophils % 32.6 %; Nucleated Red Blood Cells % 0.3 %; Platelet Count 309 10^3/cmm (130-400); Red Blood Count 4.32 10^6/uL (4.1-5.3); Red Cell Distribution Width 14.8 % (12.1-15.1); White Blood Count 6.3 10^3/uL (4.0-10.0)
[2020-04-23 08:44] LABS: Alanine Aminotransferase 11 U/L (0-41); Alkaline Phosphatase 60 IU/L (40-130); Anion Gap 13.9 (5-19); Aspartate Amino Transferase 21 U/L (0-40); Blood Urea Nitrogen 10 mg/dL (8-23); Calcium 9.1 mg/dL (8.5-10.5); Carbon Dioxide 23 mmol/L (22-29); Chloride 108 mmol/L (98-107); Globulin 2.5 g/dL (1.3-4.6); Glomerular Filtration Rate 74.8 mL/min (90-130); Glucose 133 mg/dL (65-115); Magnesium 2.3 mg/dL (1.7-2.3); Osmolality Calculated 290 mOsm/kg (285-295); Potassium 3.9 mmol/L (3.5-5.1); Sodium 141 mmol/L (136-145); Total Bilirubin 0.3 mg/dL (0.15-1.2); Total Protein 6.5 g/dL (6.6-8.7)
[2020-04-23] MEDS: dextrose 5% 250 ML 75 ML IV (10:05)
--- NOTE | 2020-04-27 07:37 | ONC FU_ITS ---
Dr. Valadez Patient Follow-Up Note Patient: Inocencio Mata Unit #: [id number]: 1955 Dicatated By: Saud Valadez M.D.Date of Visit:Apr 23, 2020 Onc Med Follow-up/Prog Note Chief Complaint: Pancreatic cancer/pulmonary nodule. 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 He also had CT evidence of a right upper lobe pulmonary nodule. He has hypertension, hyperlipidemia, and coronary artery disease. In the past he had required esophageal dilatation for esophageal stricture, and the procedure had recently been repeated at [facility] due to recurrence of difficulty swallowing. On 10/19/2019 he presented to the emergency room with fairly abrupt onset of severe pain in the left side of the abdomen and back. His abdominal CT scan showed a focal area of low-attenuation enlargement within the distal tail of the pancreas measuring 4.3 cm, consistent with acute pancreatitis or pancreatic neoplasm. There were findings compatible with splenic infarct, and there was suspected splenic vein thrombosis. Further evaluation with CT angiogram of the chest, abdomen, and pelvis showed a masslike low-attenuation lesion in the tail of the pancreas measuring 4.1 x 1.4 x 2.3 cm, felt to be most consistent with malignancy. Also noted were enlarged retrogastric, peripancreatic, and splenic hilar lymph nodes. A 1 cm focus of hyperattenuation in the liver was suggestive of possible metastasis. 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 The chest showed a spiculated noncalcified right upper lobe mass with eccentric cavitation measuring 1.7 x 0.9 x 2.0 cm, suspicious for malignancy. Calcified mediastinal and left hilar lymph nodes were consistent with prior granulomatous disease. He was referred to Dr. Carpenter in [place]. On 10/27/2019 he underwent ERCP by Dr. Jose New. A poorly demarcated 3 cm mass was noted in the pancreatic tail and several enlarged lymph nodes were noted in the periportal region. In aggregate these measured greater than 2.3 cm. FNA biopsy of the pancreatic mass did confirm adenocarcinoma. FNA biopsy of periportal lymph node was negative for metastatic carcinoma. In the context of the CT findings, he was recommended to undergo neoadjuvant chemotherapy prior to definitive surgery. He was seen here initially on 11/16/2019. At that point he still had fairly marginal performance status, and he was clearly not appropriate for the FOLFIRINOX chemotherapy regimen. As such, he began neoadjuvant chemotherapy with gemcitabine/Abraxane on 11/23/2019. With cycle 1 he was able to complete treatment on days 1 and 8, but his day 15 treatment was delayed 1 week due to neutropenia. It had resolved uneventfully with Neupogen. He also experienced significant fatigue with the chemotherapy. He had only mild nausea. He continued with cycle 2 of gmecitabine/Abraxane on 12/28/2019. His treatment was again put on hold at day 15 due to neutropenia. Restaging CT scans of the chest, abdomen, and pelvis on 01/16/2020 showed no change in the low-density lesion in the tail the pancreas measuring 1.51 x 4.64 cm. The spleen showed mild enhancement but with an area of low density consistent with splenic infarction. The splenic artery was noted to be interrupted and probably occluded. There was no adenopathy or other evidence of metastatic involvement in the abdominal area. There was evidence of resolution of the right upper lobe lung lesion. The lesion was noted to have only a thin wall with the appearance of a cavity, possibly representing a simple cyst. He continued with cycle 3-day 1 treatment on 01/18/2020 and with cycle 3-day 8 treatment on 01/25/2020. He then became profoundly weak, and he received no further chemotherapy. He did show gradual recovery from the chemotherapy. His other medical illnesses include hypertension, hyperlipidemia, and coronary artery disease. He has had previous angioplasty/stent placement. He has a history of gout, and he also has a history of esophageal stricture requiring dilatation. He has a history of smoking 1 pack of cigarettes daily for 50 years. INTERIM HISTORY: On 02/27/2020 he underwent exploratory laparotomy with left pancreatectomy and splenectomy, splenic artery lymph node dissection, partial gastrectomy, and omental pedicle flap. Grossly there was no evidence of metastatic disease, but the stomach overlying the pancreatic mass was adherent to it with suspected invasion. Pathology showed residual poorly differentiated ductal adenocarcinoma, ypT2 with 1 mm retroperitoneal margin and with involvement of 2/14 lymph nodes, ypN1. With the involved lymph nodes, he was recommended to have further adjuvant chemotherapy with modified FOLFOX. He began cycle 1 on 04/09/2020. He is seen for a followup visit. He has been feeling pretty good generally. He says he felt bad for a couple of days after his treatment, but he otherwise tolerated his first cycle of FOLFOX pretty well. His energy overall is down some, but he is able to do light work. His appetite is getting better. His weight is stable. He does not have fever or night sweats. He has had no mouth sores. He has no shortness of breath, cough, or chest pain. He has had only a little nausea. He continues to have a frequent sensation of having to belch. He generally feels gassed up. He had diarrhea just 1 day. It was controlled with Imodium. His bowels have otherwise been okay. He has no complaints. He has some joint pain, which is unchanged. He has a little numbness/tingling in his fingers. Medications: Allopurinol 1 Tablet (of 100 mg) Oral daily, HYDROcodone-Acetaminophen 1 Tablet (of 5-325 mg) Oral q 6 hours PRN, Lisinopril 1 Tablet (of 40 mg) Oral daily, Meloxicam 1 Tablet (of 15 mg) Oral daily, Metoprolol Tartrate 1 Tablet (of 50 mg) Oral daily, Ondansetron HCl 1 Tablet (of 4 mg) Oral PRN, Simvastatin 1 Tablet (of 40 mg) Oral daily, tiZANidine HCl 1 Tablet (of 4 mg) Oral PRN, Topiramate 1 Tablet (of 100 mg) Oral b.i.d. Allergies: No Known Allergies. Review of Systems: Constitutional - His energy is down some, but he is doing light work. Appetite is getting better. His weight is stable. He has no fever or night sweats. ECOG score is 1, ENMT - No sinus congestion/drainage. No mouth sores. No sore throat or difficulty swallowing, Hematologic/Lymphatic - No abnormal bruising or bleeding, Respiratory - No shortness of breath. No cough. No pleuritic pain or hemoptysis, Cardiovascular - No angina pain. No palpitations, Gastrointestinal - He has had just a little nausea. He is having acid reflux and has a constant urge to belch. No diarrhea or constipation. No blood in the stool or black stools, Genitourinary (M) - No dysuria or hematuria. No urinary frequency. No urgency or incontinence, Musculoskeletal - He has some joint pain which is unchanged, Integumentary - No skin complications, Neurologic - No headache or dizziness. He is having some numbness and tingling in his hands and fingers. No other focal neurologic symptoms, Psychiatric - No anxiety or depression. No insomnia. Vital Signs: Performed on Apr 23, 2020 14:00 Height - 68.00 in Temperature - 98.2 F (LOW) Pulse - 53 /min (LOW) Respiration - 18 /min BP - 163/74 mm(hg) (HIGH) O2 Sat - 96 % Pain - 0 Fatigue - 0 Performed on Apr 23, 2020 09:34 Height - 68.00 in Weight - 130.4 lbs (HIGH) BSA - 1.70 sq.m BMI - 19.83 Temperature - 98.5 F Pulse - 63 /min Respiration - 20 /min BP - 149/76 mm(hg) (HIGH) O2 Sat - 97 % Pain - 1 Physical Examination: Constitutional - He looks pretty good generally, Eyes - Sclerae nonicteric. Conjunctivae clear, ENMT - No lesions noted in the oral cavity, Hematologic/Lymphatic - No cervical, clavicular, or axillary adenopathy, Respiratory - Lungs are clear with diminished air movement bilaterally, Cardiovascular - Heart rhythm is regular. There is no murmur, gallop, or rub noted, Abdomen - Soft. Liver is not enlarged. There is no abdominal mass or ascites noted and there is no inguinal adenopathy, Extremities - No edema. There are scattered purpuric lesions on the arms, Neurologic - No focal neurologic deficits noted. Lab/Imaging: Test performed on Apr 23, 2020 08:10 Magnesium 2.3 mg/dL Sodium 141 mmol/L Potassium 3.9 mmol/L Chloride 108 mmol/L CO2 23 mmol/L Anion Gap 13.9 BUN 10 mg/dL Creatinine 1.0 mg/dL Cr Clearance (Est) 60.7000 mL/min eGFR 74.8 mL/min Glucose 133 mg/dL Calcium 9.1 mg/dL Protein, Total 6.5 g/dL Albumin 4.0 g/dL Globulin 2.5 g/dL Bilirubin, Total 0.3 mg/dL ALT (SGPT) 11 U/L AST (SGOT) 21 U/L Alkaline Phosphatase 60 IU/L WBC 6.3 10 3/uL RBC 4.32 10 6/uL HGB 14.2 g/dL HCT 43.9 % MCV 101.6 fL MCH 32.9 pg MCHC 32.3 g/dL RDW 14.8 % Platelet Count 309 10 3/cmm MPV 10.0 fL Neutrophils 2.1 10 3/uL Lymphocytes 2.8 10 3/uL Monocytes 1.0 10 3/uL Eosinophils 0.4 10 3/uL Basophils 0.1 10 3/uL Neutrophil % 32.6 % Lymphocyte % 44.5 % Monocyte % 15.2 % Eosinophil % 6.5 % Basophils % 1.0 % NRBC % 0.3 % Impression: 1. Patient with adenocarcinoma involving the tail of the pancreas, confirmed by FNA biopsy on 10/27/2019. By clinical evaluation his disease appeared to be at least stage T3, N1, though FNA biopsy of periportal lymph node was negative. 2. 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 3. There was CT evidence of a right upper lobe spiculated pulmonary nodule, which was felt to be suspicious for neoplasm, but more likely second primary neoplasm rather than metastasis. 4. There was also a possible hepatic metastasis by CT. 5. He had marginal performance status with weight loss and declining activity tolerance. His other medical illnesses include: 6. Hypertension. 7. Hyperlipidemia. 8. Coronary artery disease with previous angioplasty/stent placement. 9. History of gout. 10. History of esophageal stricture with recent EGD/dilatation procedure. On 11/23/2019 he began neoadjuvant chemotherapy with gemcitabine/Abraxane. With the first cycle his day 15 treatment was delayed 1 week due to neutropenia. Other side effects included fatigue and mild nausea. He had mild musculoskeletal/neuropathy symptoms. He continued with cycle 2 of gmecitabine/Abraxane on 12/28/2019. His treatment was again put on hold at day 15 due to neutropenia. He then continued with cycle 3-day 1 treatment on 01/18/2020 and with cycle 3-day 8 treatment on 01/25/2020. He then became profoundly weak, and he received no further chemotherapy. On 02/27/2020 he underwent exploratory laparotomy with left pancreatectomy and splenectomy, splenic artery lymph node dissection, partial gastrectomy, and omental pedicle flap. Grossly there was no evidence of metastatic disease, but the stomach overlying the pancreatic mass was adherent to it with suspected invasion. Pathology showed residual poorly differentiated ductal adenocarcinoma with 1 mm retroperitoneal margin and with involvement of 2/14 lymph nodes. Final staging was ypT2, ypN1. On 04/09/2020 he began postoperative adjuvant chemotherapy with modified FOLFOX. He has had some fatigue and mild nausea with the first cycle, and he also is having some mild neuropathy symptoms. Overall, though, he has tolerated it well. Plan: He will proceed with cycle 2 of modified FOLFOX. The dosages remain the same. He returns in 2 weeks. Signed By: Saud Valadez M.D. <<Signature on File>>
[2020-05-07 08:51] LABS: Basophils % 0.5 %; Eosinophils # 0.2 10^3/uL (0.0-0.8); Hematocrit 43.7 % (42.0-52.0); Hemoglobin 14.4 g/dL (11.7-16.6); Lymphocytes # 2.8 10^3/uL (0.8-4.8); Lymphocytes % 51.6 %; Mean Corpuscular Volume 100.2 fL (80-94); Mean Platelet Volume 10.1 fL (7.4-10.4); Monocytes # 0.9 10^3/uL (0.2-0.9); Monocytes % 16.8 %; Neutrophils # 1.5 10^3/uL (1.8-7.7); Neutrophils % 26.9 %; Nucleated Red Blood Cells % 0 %; Platelet Count 248 10^3/cmm (130-400); Red Blood Count 4.36 10^6/uL (4.1-5.3); Red Cell Distribution Width 15.3 % (12.1-15.1); White Blood Count 5.5 10^3/uL (4.0-10.0)
[2020-05-07 09:04] LABS: Alanine Aminotransferase 9 U/L (0-41); Alkaline Phosphatase 57 IU/L (40-130); Anion Gap 16.4 (5-19); Aspartate Amino Transferase 19 U/L (0-40); Blood Urea Nitrogen 8 mg/dL (8-23); Calcium 9.2 mg/dL (8.5-10.5); Carbon Dioxide 24 mmol/L (22-29); Chloride 104 mmol/L (98-107); Globulin 2.8 g/dL (1.3-4.6); Glomerular Filtration Rate 84.4 mL/min (90-130); Glucose 100 mg/dL (65-115); Osmolality Calculated 288 mOsm/kg (285-295); Potassium 3.4 mmol/L (3.5-5.1); Sodium 141 mmol/L (136-145); Total Bilirubin 0.2 mg/dL (0.15-1.2); Total Protein 6.8 g/dL (6.6-8.7)
[2020-05-07] MEDS: dextrose 5% 250 ML 75 ML IV (10:42)
[2020-05-07 12:34] LABS: Magnesium 2.2 mg/dL (1.7-2.3)
--- NOTE | 2020-05-09 14:49 | ONC FU_ITS ---
[facility] Patient Note Patient: Inocencio Mata Unit #: [id number]: 1955 Dictated By: Alyse MirzaDate of Visit: May 07, 2020 Onc MED Follow-Up/Prog Note Chief Complaint: Pancreatic cancer/pulmonary nodule. 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 He also had CT evidence of a right upper lobe pulmonary nodule. He has hypertension, hyperlipidemia, and coronary artery disease. In the past he had required esophageal dilatation for esophageal stricture, and the procedure had recently been repeated at [facility] due to recurrence of difficulty swallowing. On 10/19/2019 he presented to the emergency room with fairly abrupt onset of severe pain in the left side of the abdomen and back. His abdominal CT scan showed a focal area of low-attenuation enlargement within the distal tail of the pancreas measuring 4.3 cm, consistent with acute pancreatitis or pancreatic neoplasm. There were findings compatible with splenic infarct, and there was suspected splenic vein thrombosis. Further evaluation with CT angiogram of the chest, abdomen, and pelvis showed a masslike low-attenuation lesion in the tail of the pancreas measuring 4.1 x 1.4 x 2.3 cm, felt to be most consistent with malignancy. Also noted were enlarged retrogastric, peripancreatic, and splenic hilar lymph nodes. A 1 cm focus of hyperattenuation in the liver was suggestive of possible metastasis. 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 The chest showed a spiculated noncalcified right upper lobe mass with eccentric cavitation measuring 1.7 x 0.9 x 2.0 cm, suspicious for malignancy. Calcified mediastinal and left hilar lymph nodes were consistent with prior granulomatous disease. He was referred to Dr. Carpenter in [place]. On 10/27/2019 he underwent ERCP by Dr. Jose New. A poorly demarcated 3 cm mass was noted in the pancreatic tail and several enlarged lymph nodes were noted in the periportal region. In aggregate these measured greater than 2.3 cm. FNA biopsy of the pancreatic mass did confirm adenocarcinoma. FNA biopsy of periportal lymph node was negative for metastatic carcinoma. In the context of the CT findings, he was recommended to undergo neoadjuvant chemotherapy prior to definitive surgery. He was seen here initially on 11/16/2019. At that point he still had fairly marginal performance status, and he was clearly not appropriate for the FOLFIRINOX chemotherapy regimen. As such, he began neoadjuvant chemotherapy with gemcitabine/Abraxane on 11/23/2019. His other medical illnesses include hypertension, hyperlipidemia, and coronary artery disease. He has had previous angioplasty/stent placement. He has a history of gout, and he also has a history of esophageal stricture requiring dilatation. He has a history of smoking 1 pack of cigarettes daily for 50 years. INTERIM HISTORY: With cycle 1 he was able to complete treatment on days 1 and 8, but his day 15 treatment was delayed 1 week due to neutropenia. It had resolved uneventfully with Neupogen. He also experienced significant fatigue with the chemotherapy. He had only mild nausea. He continued with cycle 2 of gmecitabine/Abraxane on 12/28/2019. His treatment was again put on hold at day 15 due to neutropenia. Restaging CT scans of the chest, abdomen, and pelvis on 01/16/2020 showed no change in the low-density lesion in the tail the pancreas measuring 1.51 x 4.64 cm. The spleen showed mild enhancement but with an area of low density consistent with splenic infarction. The splenic artery was noted to be interrupted and probably occluded. There was no adenopathy or other evidence of metastatic involvement in the abdominal area. There was evidence of resolution of the right upper lobe lung lesion. The lesion was noted to have only a thin wall with the appearance of a cavity, possibly representing a simple cyst. He continued with cycle 3-day 1 treatment on 01/18/2020 and with cycle 3-day 8 treatment on 01/25/2020. He then became profoundly weak, and he received no further chemotherapy. He did show gradual recovery from the chemotherapy. On 02/27/2020 he underwent exploratory laparotomy with left pancreatectomy and splenectomy, splenic artery lymph node dissection, partial gastrectomy, and omental pedicle flap. Grossly there was no evidence of metastatic disease, but the stomach overlying the pancreatic mass was adherent to it with suspected invasion. Pathology showed residual poorly differentiated ductal adenocarcinoma, ypT2 with 1 mm retroperitoneal margin and with involvement of 2/14 lymph nodes, ypN1. Mr. Mata is here today for consideration of his third cycle of FOLFOX. He has no new concerns. He states his energy is declining with each treatment. It is some better today but not back to his baselilne when starting this chemotherapy regimen.+[id number] He denies any fever or chills or any signs of infection for at least the last 72 hours. He continues to have poor appetite and is not eating well despite taking Marinol 1 tablet twice daily. He states he is still trying to drink a couple of ensures a day. He denies any nausea or vomiting. He has had no diarrhea or constipation in the last 2-3 days. He has had constipation, but resolved with regular use of Senekot. 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 His ECOG is 2. Past Medical History: Coronary artery disease Gout History of esophageal stricture Hyperlipidemia Hypertension Migraine headaches Past Surgical History: ERCP with FNA biopsy of pancreatic mass and periportal lymph node in 2019 Placement of Port-A-Cath venous access device in 2019 Coronary angioplasty/stent placement in 2006 Allergies: No Known Allergies. Medications: Allopurinol 1 Tablet (of 100 mg) Oral daily HYDROcodone-Acetaminophen 1 Tablet (of 5-325 mg) Oral q 6 hours PRN Lisinopril 1 Tablet (of 40 mg) Oral daily Meloxicam 1 Tablet (of 15 mg) Oral daily Metoprolol Tartrate 1 Tablet (of 50 mg) Oral daily Ondansetron HCl 1 Tablet (of 4 mg) Oral PRN Simvastatin 1 Tablet (of 40 mg) Oral daily tiZANidine HCl 1 Tablet (of 4 mg) Oral PRN Topiramate 1 Tablet (of 100 mg) Oral b.i.d. Family History: Mr. Mata's mother at age 91: heart disease, and cancer of unknown primary. Mr. Mata's father at age 91: myocardial infarction. Mr. Mata's maternal grandmother is . Mr. Mata has 1 brother who is alive: colon cancer. Father was found at age 91, thought to be heart related. He had been treated for lung cancer. His mother had Hodgkin's lymphoma in association with rheumatoid arthritis. She of unrelated causes. A brother at age 38, also presumably of heart disease. Another brother has been treated for colon cancer. A maternal aunt has breast cancer. 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 He is a daily smoker who has smoked 1.0 pack/day for 51 years. He drinks daily. He consumes 2 drinks/day 7 days/week. He has indicated exposure to the following products: cigarettes. Mr. Mata reports the following support systems: lives with spouse, significant other, family, or friends, lives in own house, supportive family/friends willing to assist with needs, and adequate transportation available for expected visits. His diet consists of regular meals. He indicates his activity level as: regular exercise. He has a history of smoking 1 pack of cigarettes daily for 50 years. Alcohol use is estimated at 2 beers daily. He was a heavy drinker in the past, but he cut down years ago . Review Of Symptoms: Constitutional Denies night sweats, excessive fatigue. No recent fever or chills. Energy better last few days. But is is dropping after each treatment . Appetite is down. Taking Marinol twice a day-1 tablet. Allergic/Immunologic No reactions. Eyes Denies significant visual changes. No diplopia. No amaurosis. ENMT Denies changes in hearing, sore throat, mouth sores, difficulty or changes in swallowing ability, and/or sinus drainage. Hematologic/Lymphatic Denies easy bruising or bleeding. The patient denies any tender or palpable lymph nodes. Respiratory Denies dyspnea on exertion, chest pain, cough or hemoptysis. Denies orthopnea. Cardiovascular Denies anginal chest pain, palpitations or orthopnea. Gastrointestinal Denies nausea, vomiting, diarrhea, GI bleeding, or constipation. Denies change in bowel habits and/or stool color, no heartburn or early satiety. Abdominal tenderness but not pain . Some severe left quadrant abdominal pain since last treatment. Lasted just a little while . Has not recurred. Has been having some constipation but controlled with senekot currently. Genitourinary (M) Denies hematuria, dysuria, increased frequency, urgency, hesitancy or incontinence. Musculoskeletal Denies joint pain, swelling or redness. No decreased range of motion. Integumentary Denies chronic rashes, inflammation, ulcerations or skin changes. Neurologic Denies headache, blurred vision, and no areas of focal weakness. Normal gait. No sensory problems. He is having some intermittent tingling in his fingers and lips and throat area which is cold-induced right after the treatment. He states it last for couple days and then it is gone. It is currently resolved. Psychiatric Denies insomnia, debbie or mood swings. Has noticed situational depression but feels it is controlled. Vital Signs: Performed on May 07, 2020 09:37 Height - 68.00 in Weight - 127.2 lbs (LOW) BSA - 1.69 sq.m BMI - 19.34 Temperature - 98.0 F (LOW) Pulse - 75 /min Respiration - 16 /min BP - 152/92 mm(hg) (HIGH) O2 Sat - 97 % Pain - 0,1 - No physically strenuous activity, but ambulatory and able to carry out light or sedentary work (e.g. office work, light house work). (ECOG) Physical Examination: Constitutional Alert, oriented, no acute distress. Skin pink, warm and dry. Head Normocephalic; atraumatic. Eyes Conjunctivae and sclerae are clear and without icterus. Pupils are reactive and equal. Neck Supple without masses or thyromegaly. No jugular venous distension. Hematologic/Lymphatic No petechiae or purpura. No tender or palpable lymph nodes in the cervical or supraclavicular areas. Respiratory Lungs are clear to auscultation without rhonchi or wheezing. Cardiovascular Regular rate and rhythm of heart without murmurs,clicks, gallops or rubs. Chest Right chest wall venous access site is unremarkable. Abdomen Non-tender, non-distended, no masses or ascites. Back/Spine Non-tender to palpation. Extremities No visible deformities, no cyanosis, clubbing or edema. Musculoskeletal No tenderness or swelling, normal range of motion without obvious weakness. Integumentary No rashes or lesions. Neurologic No sensory or motor deficits, normal cerebellar function, normal gait. Psychiatric Alert and oriented times three. Coherent speech. Verbalizes understanding of our discussions today. Laboratory:Test performed on May 07, 2020 08:25 Magnesium 2.2 mg/dL Sodium 141 mmol/L Potassium 3.4 mmol/L Chloride 104 mmol/L CO2 24 mmol/L Anion Gap 16.4 BUN 8 mg/dL Creatinine 0.9 mg/dL Cr Clearance (Est) 67.4400 mL/min eGFR 84.4 mL/min Glucose 100 mg/dL Calcium 9.2 mg/dL Protein, Total 6.8 g/dL Albumin 4.0 g/dL Globulin 2.8 g/dL Bilirubin, Total 0.2 mg/dL ALT (SGPT) 9 U/L AST (SGOT) 19 U/L Alkaline Phosphatase 57 IU/L WBC 5.5 10 3/uL RBC 4.36 10 6/uL HGB 14.4 g/dL HCT 43.7 % MCV 100.2 fL MCH 33.0 pg MCHC 33.0 g/dL RDW 15.3 % Platelet Count 248 10 3/cmm MPV 10.1 fL Neutrophils 1.5 10 3/uL Lymphocytes 2.8 10 3/uL Monocytes 0.9 10 3/uL Eosinophils 0.2 10 3/uL Basophils 0.0 10 3/uL Neutrophil % 26.9 % Lymphocyte % 51.6 % Monocyte % 16.8 % Eosinophil % 4.0 % Basophils % 0.5 % NRBC % 0 % Test performed on April 09, 2020 08:45 CA 19-9 12.76 U/mL CEA 1.3 ng/mL Impression: 1. Patient with adenocarcinoma involving the tail of the pancreas, confirmed by FNA biopsy on 10/27/2019. By clinical evaluation his disease appeared to be at least stage T3, N1, though FNA biopsy of periportal lymph node was negative. 2. 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 3. There was CT evidence of a right upper lobe spiculated pulmonary nodule, which was felt to be suspicious for neoplasm, but more likely second primary neoplasm rather than metastasis. 4. There was also a possible hepatic metastasis by CT. 5. He had marginal performance status with weight loss and declining activity tolerance. His other medical illnesses include: 6. Hypertension. 7. Hyperlipidemia. 8. Coronary artery disease with previous angioplasty/stent placement. 9. History of gout. 10. History of esophageal stricture with recent EGD/dilatation procedure. On 11/23/2019 he began neoadjuvant chemotherapy with gemcitabine/Abraxane. With the first cycle his day 15 treatment was delayed 1 week due to neutropenia. Other side effects included fatigue and mild nausea. He had mild musculoskeletal/neuropathy symptoms. He continued with cycle 2 of gmecitabine/Abraxane on 12/28/2019. His treatment was again put on hold at day 15 due to neutropenia. He then continued with cycle 3-day 1 treatment on 01/18/2020 and with cycle 3-day 8 treatment on 01/25/2020. He then became profoundly weak, and he received no further chemotherapy. On 02/27/2020 he underwent exploratory laparotomy with left pancreatectomy and splenectomy, splenic artery lymph node dissection, partial gastrectomy, and omental pedicle flap. Grossly there was no evidence of metastatic disease, but the stomach overlying the pancreatic mass was adherent to it with suspected invasion. Pathology showed residual poorly differentiated ductal adenocarcinoma with 1 mm retroperitoneal margin and with involvement of 2/14 lymph nodes. Final staging was ypT2, ypN1. At his initial presentation, he had very marginal performance status, that was mainly because of the splenic infarction. At that point, though, he was not a suitable candidate for FOLFIRINOX chemotherapy, and his neoadjuvant treatment was limited to gemcitabine/Abraxane. As he now has been confirmed to have lymph node involvement, Dr Valadez has recommended additional postoperative adjuvant chemotherapy with modified FOLFOX. We will also consider postop radiation due to the close retroperitoneal margin. Mr Mata began his first cycle of FOLFOX on 04/09/2020. Plan: 1. Proceed with cycle 3 day 1 FOLFOX. 2. He is having some intermittent tingling in his fingers and lips and throat area which is cold-induced right after the treatment. He states it last for couple days and then it is gone. It is currently resolved. 3. CBC from today was reviewed in detail and discussed with Mr Mata. WBC 5.5, Hgb 14.4 and platelets 248,000 and his ANC is 1500 today. 4. He does require addition of Neulasta on pro to his current regimen. His cycle 3-day 1 ANC is 1500. On cycle 1 day 1 his ANC was 4000. He does have extensive disease. His albumin is 4.0 however he has had a 3 pound weight loss since his last visit 2 weeks ago. He has poor appetite. He also had surgery with exploratory lap with left pancreectomy splenectomy, splenic artery lymph node dissection, plastic gastrectomy and mental pedicle flap on 02/27/2020. He is on a moderate risk regimen with FOLFOX for chemo induced neutropenia. 5. He may try increasing the Marinol to 2 tablets up to 3 times daily for appetite however if he does not see any improvement over the next couple of days he can stop it. He has been advised to call us so that we can try something else. 6. We will plan to see him back in 2 weeks with CBC CMP for consideration of cycle 4 FOLFOX. 7. Mr. Mata is instructed to contact us in the interim should questions or problems arise. He was encouraged to call us if he has any recurrent left quadrant pain. Signed By: Alyse Mirza-, [facility] Saud Valadez MD <<Signature on File>>
== END 2020-05-14 23:59 | disposition home or self-care (01) ==
LOC: ONCMED 06:45
PROVIDERS: Nurse Practitioner; PCP Family Medicine; Visit Provider Internal Medicine Medical Oncology
DX: Z51.11 Encounter for antineoplastic chemotherapy (principal); C25.2 Malignant neoplasm of tail of pancreas; I25.10 Atherosclerotic heart disease of native coronary artery without angina pectoris; M10.9 Gout, unspecified; E78.5 Hyperlipidemia, unspecified; I10 Essential (primary) hypertension; G43.909 Migraine, unspecified, not intractable, without status migrainosus; Z79.899 Other long term (current) drug therapy; Z45.2 Encounter for adjustment and management of vascular access device
CPT/HCPCS: 36591; 80053; 83735; 85025; 96367; 96368; 96372; 96413; 96415; 96416; 96523; 99214; J0640; J1100; J2405; J2469; J2505; J3490; J9263

== ENCOUNTER 2020-06-13 06:07 | Outpatient (RCR) | payer MEDICARE, OTHER, SELFPAY ==
[2020-05-21 08:59] LABS: Basophils # 0.2 10^3/uL (0.0-0.1); Basophils % 0.6 %; Eosinophils # 0.1 10^3/uL (0.0-0.8); Eosinophils % 0.3 %; Hematocrit 44.8 % (42.0-52.0); Hemoglobin 14.7 g/dL (11.7-16.6); Lymphocytes # 2.8 10^3/uL (0.8-4.8); Lymphocytes % 10.1 %; Mean Corpuscular HGB Conc 32.8 g/dL (30.0-36.0); Mean Corpuscular Hemoglobin 32.4 pg (28.0-34.0); Mean Corpuscular Volume 98.7 fL (80-94); Mean Platelet Volume 11.5 fL (7.4-10.4); Monocytes # 3.2 10^3/uL (0.2-0.9); Monocytes % 11.5 %; Neutrophils # 19.5 10^3/uL (1.8-7.7); Neutrophils % 71.1 %; Nucleated Red Blood Cells # 0.4 /100WBC; Nucleated Red Blood Cells % 1.5 %; Platelet Count 174 10^3/cmm (130-400); Red Blood Count 4.54 10^6/uL (4.1-5.3); Red Cell Distribution Width 16.4 % (12.1-15.1); White Blood Count 27.4 10^3/uL (4.0-10.0)
[2020-05-21 09:28] LABS: Alanine Aminotransferase 6 U/L (0-41); Albumin Level 3.6 g/dL (3.5-5.2); Alkaline Phosphatase 128 IU/L (40-130); Anion Gap 15.5 (5-19); Aspartate Amino Transferase 17 U/L (0-40); Blood Urea Nitrogen 11 mg/dL (8-23); Calcium 9.3 mg/dL (8.5-10.5); Carbon Dioxide 23 mmol/L (22-29); Chloride 102 mmol/L (98-107); Globulin 3.5 g/dL (1.3-4.6); Glomerular Filtration Rate 84.4 mL/min (90-130); Glucose 118 mg/dL (65-115); Osmolality Calculated 281 mOsm/kg (285-295); Potassium 3.5 mmol/L (3.5-5.1); Sodium 137 mmol/L (136-145); Total Bilirubin 0.2 mg/dL (0.15-1.2); Total Protein 7.1 g/dL (6.6-8.7)
[2020-05-21 09:33] LABS: Slide Review Slide Review Perform
--- NOTE | 2020-05-21 20:26 | ONC FU_ITS ---
Dr. Valadez Patient Follow-Up Note Patient: Inocencio Mata Unit #: [id number]: 1955 Dicatated By: Saud Valadez M.D.Date of Visit:May 21, 2020 Onc Med Follow-up/Prog Note Chief Complaint: Pancreatic cancer/pulmonary nodule. 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 He also had CT evidence of a right upper lobe pulmonary nodule. He has hypertension, hyperlipidemia, and coronary artery disease. In the past he had required esophageal dilatation for esophageal stricture, and the procedure had recently been repeated at [facility] due to recurrence of difficulty swallowing. On 10/19/2019 he presented to the emergency room with fairly abrupt onset of severe pain in the left side of the abdomen and back. His abdominal CT scan showed a focal area of low-attenuation enlargement within the distal tail of the pancreas measuring 4.3 cm, consistent with acute pancreatitis or pancreatic neoplasm. There were findings compatible with splenic infarct, and there was suspected splenic vein thrombosis. Further evaluation with CT angiogram of the chest, abdomen, and pelvis showed a masslike low-attenuation lesion in the tail of the pancreas measuring 4.1 x 1.4 x 2.3 cm, felt to be most consistent with malignancy. Also noted were enlarged retrogastric, peripancreatic, and splenic hilar lymph nodes. A 1 cm focus of hyperattenuation in the liver was suggestive of possible metastasis. 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 The chest showed a spiculated noncalcified right upper lobe mass with eccentric cavitation measuring 1.7 x 0.9 x 2.0 cm, suspicious for malignancy. Calcified mediastinal and left hilar lymph nodes were consistent with prior granulomatous disease. He was referred to Dr. Carpenter in [place]. On 10/27/2019 he underwent ERCP by Dr. Jose New. A poorly demarcated 3 cm mass was noted in the pancreatic tail and several enlarged lymph nodes were noted in the periportal region. In aggregate these measured greater than 2.3 cm. FNA biopsy of the pancreatic mass did confirm adenocarcinoma. FNA biopsy of periportal lymph node was negative for metastatic carcinoma. In the context of the CT findings, he was recommended to undergo neoadjuvant chemotherapy prior to definitive surgery. He was seen here initially on 11/16/2019. At that point he still had fairly marginal performance status, and he was clearly not appropriate for the FOLFIRINOX chemotherapy regimen. As such, he began neoadjuvant chemotherapy with gemcitabine/Abraxane on 11/23/2019. With cycle 1 he was able to complete treatment on days 1 and 8, but his day 15 treatment was delayed 1 week due to neutropenia. It had resolved uneventfully with Neupogen. He also experienced significant fatigue with the chemotherapy. He had only mild nausea. He continued with cycle 2 of gmecitabine/Abraxane on 12/28/2019. His treatment was again put on hold at day 15 due to neutropenia. Restaging CT scans of the chest, abdomen, and pelvis on 01/16/2020 showed no change in the low-density lesion in the tail the pancreas measuring 1.51 x 4.64 cm. The spleen showed mild enhancement but with an area of low density consistent with splenic infarction. The splenic artery was noted to be interrupted and probably occluded. There was no adenopathy or other evidence of metastatic involvement in the abdominal area. There was evidence of resolution of the right upper lobe lung lesion. The lesion was noted to have only a thin wall with the appearance of a cavity, possibly representing a simple cyst. He continued with cycle 3-day 1 treatment on 01/18/2020 and with cycle 3-day 8 treatment on 01/25/2020. He then became profoundly weak, and he received no further chemotherapy. He did show gradual recovery from the chemotherapy. His other medical illnesses include hypertension, hyperlipidemia, and coronary artery disease. He has had previous angioplasty/stent placement. He has a history of gout, and he also has a history of esophageal stricture requiring dilatation. He has a history of smoking 1 pack of cigarettes daily for 50 years. INTERIM HISTORY: On 02/27/2020 he underwent exploratory laparotomy with left pancreatectomy and splenectomy, splenic artery lymph node dissection, partial gastrectomy, and omental pedicle flap. Grossly there was no evidence of metastatic disease, but the stomach overlying the pancreatic mass was adherent to it with suspected invasion. Pathology showed residual poorly differentiated ductal adenocarcinoma, ypT2 with 1 mm retroperitoneal margin and with involvement of 2/14 lymph nodes, ypN1. With the involved lymph nodes, he was recommended to have further adjuvant chemotherapy with modified FOLFOX. He began cycle 1 on 04/09/2020. He tolerated with acceptable toxicity. He was then able to continue with cycle 2 on 04/23/2020 and with cycle 3 on 05/07/2020. Neulasta was added prophylactically with cycle 3 due to moderately severe neutropenia, ANC 1500. He is seen for a followup visit. He has not been feeling as good since his last chemotherapy treatment. He said he has had a pretty bad week, daughter has not been terrible. He developed pretty significant musculoskeletal pain about the fifth day after his Neulasta injection. It lasted 2 to 3 days. Thereafter he just felt generally crappy. He has had decline in his energy/activity tolerance. ECOG score is 2. Appetite also has been worse, and he has had more trouble eating. His weight dropped 7 pounds during the past month. He said he had a little bit of fever this morning. He has had no night sweating. He is also had a little bit of sore throat. He has had no mouth sores. He does not complain of shortness of breath, cough, or chest pain. He has had a little more nausea. He is having to watch his bowels pretty closely, as he fluctuates between diarrhea and constipation. He still has some abdominal discomfort. He has no complaints. He has having numbness/tingling in his hands and feet all the time. Medications: Allopurinol 1 Tablet (of 100 mg) Oral daily, HYDROcodone-Acetaminophen 1 Tablet (of 5-325 mg) Oral q 6 hours PRN, Lisinopril 1 Tablet (of 40 mg) Oral daily, Meloxicam 1 Tablet (of 15 mg) Oral daily, Metoprolol Tartrate 1 Tablet (of 50 mg) Oral daily, Ondansetron HCl 1 Tablet (of 4 mg) Oral PRN, Simvastatin 1 Tablet (of 40 mg) Oral daily, tiZANidine HCl 1 Tablet (of 4 mg) Oral PRN, Topiramate 1 Tablet (of 100 mg) Oral b.i.d. Allergies: No Known Allergies. Review of Systems: Constitutional - He has felt rough/crappy since his last treatment. Energy has been down. He is doing just very little light work. Appetite is worse and his weight is down a little. He had a slight fever this morning. He has not had night sweating. ECOG score is 2, ENMT - No sinus congestion/drainage. No mouth sores. He has a little bit of sore throat. No difficulty swallowing, Hematologic/Lymphatic - He has some bruising, Respiratory - No shortness of breath. No cough. No pleuritic pain or hemoptysis, Cardiovascular - No angina pain. No palpitations, Gastrointestinal - He has had a little more nausea. He still has some abdominal discomfort. He has to watch his bowels very closely, as he is prone to either constipation or diarrhea. No blood in the stool or black stools, Genitourinary (M) - No dysuria or hematuria. No urinary frequency. No urgency or incontinence, Musculoskeletal - He had fairly generalized pain beginning about 5 days after the Neulasta injection. It lasted 2 or 3 days, Integumentary - No skin rash, Neurologic - He has headaches. No dizziness. He has having numbness/tingling all the time. No other focal neurologic symptoms, Psychiatric - No anxiety or depression. No insomnia. Vital Signs: Performed on May 21, 2020 09:41 Height - 68.00 in Weight - 123.6 lbs (LOW) BSA - 1.67 sq.m BMI - 18.79 Temperature - 97.4 F (LOW) Pulse - 78 /min Respiration - 18 /min BP - 128/82 mm(hg) O2 Sat - 97 % Pain - 2 Physical Examination: Constitutional - He appears somewhat weak generally, Eyes - Sclerae nonicteric. Conjunctivae clear, ENMT - No lesions noted in the oral cavity, Hematologic/Lymphatic - No cervical, clavicular, or axillary adenopathy, Respiratory - Lungs are clear with diminished air movement bilaterally, Cardiovascular - Heart rhythm is regular. There is no murmur, gallop, or rub noted, Abdomen - Soft. Liver is not enlarged. There is no abdominal mass or ascites noted and there is no inguinal adenopathy, Extremities - No edema. There are purpuric lesions on both arms, Neurologic - No focal neurologic deficits noted. Lab/Imaging: Test performed on May 21, 2020 08:30 Sodium 137 mmol/L Potassium 3.5 mmol/L Chloride 102 mmol/L CO2 23 mmol/L Anion Gap 15.5 BUN 11 mg/dL Creatinine 0.9 mg/dL Cr Clearance (Est) 67.4400 mL/min eGFR 84.4 mL/min Glucose 118 mg/dL Calcium 9.3 mg/dL Protein, Total 7.1 g/dL Albumin 3.6 g/dL Globulin 3.5 g/dL Bilirubin, Total 0.2 mg/dL ALT (SGPT) 6 U/L AST (SGOT) 17 U/L Alkaline Phosphatase 128 IU/L WBC 27.4 10 3/uL RBC 4.54 10 6/uL HGB 14.7 g/dL HCT 44.8 % MCV 98.7 fL MCH 32.4 pg MCHC 32.8 g/dL RDW 16.4 % Platelet Count 174 10 3/cmm MPV 11.5 fL Neutrophils 19.5 10 3/uL Lymphocytes 2.8 10 3/uL Monocytes 3.2 10 3/uL Eosinophils 0.1 10 3/uL Basophils 0.2 10 3/uL Neutrophil % 71.1 % Lymphocyte % 10.1 % Monocyte % 11.5 % Eosinophil % 0.3 % Basophils % 0.6 % NRBC % 1.5 % CBC Slide Review Slide Review Perform SLIDE REVIEW AGREES WITH AUTOMATED RESULTS ST Impression: 1. Patient with adenocarcinoma involving the tail of the pancreas, confirmed by FNA biopsy on 10/27/2019. By clinical evaluation his disease appeared to be at least stage T3, N1, though FNA biopsy of periportal lymph node was negative. 2. 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 3. There was CT evidence of a right upper lobe spiculated pulmonary nodule, which was felt to be suspicious for neoplasm, but more likely second primary neoplasm rather than metastasis. 4. There was also a possible hepatic metastasis by CT. 5. He had marginal performance status with weight loss and declining activity tolerance. His other medical illnesses include: 6. Hypertension. 7. Hyperlipidemia. 8. Coronary artery disease with previous angioplasty/stent placement. 9. History of gout. 10. History of esophageal stricture with recent EGD/dilatation procedure. On 11/23/2019 he began neoadjuvant chemotherapy with gemcitabine/Abraxane. With the first cycle his day 15 treatment was delayed 1 week due to neutropenia. Other side effects included fatigue and mild nausea. He had mild musculoskeletal/neuropathy symptoms. He continued with cycle 2 of gmecitabine/Abraxane on 12/28/2019. His treatment was again put on hold at day 15 due to neutropenia. He then continued with cycle 3-day 1 treatment on 01/18/2020 and with cycle 3-day 8 treatment on 01/25/2020. He then became profoundly weak, and he received no further chemotherapy. On 02/27/2020 he underwent exploratory laparotomy with left pancreatectomy and splenectomy, splenic artery lymph node dissection, partial gastrectomy, and omental pedicle flap. Grossly there was no evidence of metastatic disease, but the stomach overlying the pancreatic mass was adherent to it with suspected invasion. Pathology showed residual poorly differentiated ductal adenocarcinoma with 1 mm retroperitoneal margin and with involvement of 2/14 lymph nodes. Final staging was ypT2, ypN1. On 04/09/2020 he began postoperative adjuvant chemotherapy with modified FOLFOX. He has had some fatigue and mild nausea with the 1st cycle, and he had some mild neuropathy symptoms. Overall, though, he tolerated it well. He was able to proceed with cycle 2 on 04/23/2020 and with cycle 3 on 05/07/2020. With cycle 3 was given Neulasta prophylactically for moderately severe neutropenia, ANC 1500. He did experience more significant toxicity following that treatment, including fatigue, nausea/anorexia, musculoskeletal pain, and increased neuropathy. Plan: Due to the increased side effects, I am going to delay his chemotherapy. He will return next week and assuming he is feeling better, he will then proceed with cycle 4 of modified FOLFOX. It will be administered with a dose reduction in the oxaliplatin, and it will be administered without Neulasta. If he is able to tolerate it with acceptable toxicity, I would like to complete 6 cycles of treatment and then continue with radiation concurrently with Xeloda for chemosensitization. Signed By: Saud Valadez M.D. <<Signature on File>>
[2020-05-28 08:42] LABS: Basophils # 0.1 10^3/uL (0.0-0.1); Basophils % 0.8 %; Eosinophils # 0.2 10^3/uL (0.0-0.8); Eosinophils % 1.3 %; Hematocrit 41.9 % (42.0-52.0); Hemoglobin 14.1 g/dL (11.7-16.6); Lymphocytes # 2.2 10^3/uL (0.8-4.8); Lymphocytes % 17.7 %; Mean Corpuscular HGB Conc 33.7 g/dL (30.0-36.0); Mean Corpuscular Hemoglobin 33.4 pg (28.0-34.0); Mean Corpuscular Volume 99.3 fL (80-94); Mean Platelet Volume 9.9 fL (7.4-10.4); Monocytes # 1.7 10^3/uL (0.2-0.9); Monocytes % 13.4 %; Neutrophils # 8.17 10^3/uL (1.8-7.7); Neutrophils % 65.9 %; Nucleated Red Blood Cells % 0.2 %; Platelet Count 786 10^3/cmm (130-400); Red Blood Count 4.22 10^6/uL (4.1-5.3); White Blood Count 12.4 10^3/uL (4.0-10.0)
[2020-05-28 08:57] LABS: Alanine Aminotransferase 8 U/L (0-41); Albumin Level 3.4 g/dL (3.5-5.2); Alkaline Phosphatase 71 IU/L (40-130); Anion Gap 15.2 (5-19); Aspartate Amino Transferase 15 U/L (0-40); Blood Urea Nitrogen 12 mg/dL (8-23); Calcium 9.4 mg/dL (8.5-10.5); Carbon Dioxide 24 mmol/L (22-29); Chloride 105 mmol/L (98-107); Globulin 3.1 g/dL (1.3-4.6); Glomerular Filtration Rate 96.7 mL/min (90-130); Glucose 97 mg/dL (65-115); Osmolality Calculated 288 mOsm/kg (285-295); Potassium 3.2 mmol/L (3.5-5.1); Sodium 141 mmol/L (136-145); Total Bilirubin 0.2 mg/dL (0.15-1.2); Total Protein 6.5 g/dL (6.6-8.7)
[2020-05-28] MEDS: dextrose 5% 250 ML 75 ML IV (10:10)
[2020-06-11 09:48] LABS: Basophils # 0.1 10^3/uL (0.0-0.1); Basophils % 1.2 %; Eosinophils # 0.5 10^3/uL (0.0-0.8); Hematocrit 42.1 % (42.0-52.0); Hemoglobin 13.7 g/dL (11.7-16.6); Lymphocytes # 2.3 10^3/uL (0.8-4.8); Lymphocytes % 34.7 %; Mean Corpuscular HGB Conc 32.5 g/dL (30.0-36.0); Mean Corpuscular Hemoglobin 31.9 pg (28.0-34.0); Mean Corpuscular Volume 97.9 fL (80-94); Mean Platelet Volume 11.2 fL (7.4-10.4); Monocytes # 1.3 10^3/uL (0.2-0.9); Monocytes % 19.7 %; Neutrophils # 2.36 10^3/uL (1.8-7.7); Neutrophils % 36.2 %; Nucleated Red Blood Cells % 0 %; Platelet Count 236 10^3/cmm (130-400); Red Cell Distribution Width 16.2 % (12.1-15.1); White Blood Count 6.5 10^3/uL (4.0-10.0)
[2020-06-11 10:03] LABS: Alanine Aminotransferase 8 U/L (0-41); Albumin Level 3.5 g/dL (3.5-5.2); Alkaline Phosphatase 58 IU/L (40-130); Anion Gap 12.5 (5-19); Aspartate Amino Transferase 21 U/L (0-40); Blood Urea Nitrogen 11 mg/dL (8-23); Calcium 8.7 mg/dL (8.5-10.5); Carbon Dioxide 26 mmol/L (22-29); Chloride 107 mmol/L (98-107); Globulin 3.2 g/dL (1.3-4.6); Glomerular Filtration Rate 96.7 mL/min (90-130); Glucose 99 mg/dL (65-115); Osmolality Calculated 290 mOsm/kg (285-295); Potassium 3.5 mmol/L (3.5-5.1); Sodium 142 mmol/L (136-145); Total Bilirubin 0.3 mg/dL (0.15-1.2); Total Protein 6.7 g/dL (6.6-8.7)
[2020-06-11] MEDS: dextrose 5% 250 ML 75 ML IV (11:50)
--- NOTE | 2020-06-15 15:41 | ONC FU_ITS ---
[facility] Patient Note Patient: Inocencio Mata Unit #: [id number]: 1955 Dictated By: Alyse MirzaDate of Visit: Jun 11, 2020 Onc MED Follow-Up/Prog Note Chief Complaint: Pancreatic cancer/pulmonary nodule. 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 He also had CT evidence of a right upper lobe pulmonary nodule. He has hypertension, hyperlipidemia, and coronary artery disease. In the past he had required esophageal dilatation for esophageal stricture, and the procedure had recently been repeated at [facility] due to recurrence of difficulty swallowing. On 10/19/2019 he presented to the emergency room with fairly abrupt onset of severe pain in the left side of the abdomen and back. His abdominal CT scan showed a focal area of low-attenuation enlargement within the distal tail of the pancreas measuring 4.3 cm, consistent with acute pancreatitis or pancreatic neoplasm. There were findings compatible with splenic infarct, and there was suspected splenic vein thrombosis. Further evaluation with CT angiogram of the chest, abdomen, and pelvis showed a masslike low-attenuation lesion in the tail of the pancreas measuring 4.1 x 1.4 x 2.3 cm, felt to be most consistent with malignancy. Also noted were enlarged retrogastric, peripancreatic, and splenic hilar lymph nodes. A 1 cm focus of hyperattenuation in the liver was suggestive of possible metastasis. 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 The chest showed a spiculated noncalcified right upper lobe mass with eccentric cavitation measuring 1.7 x 0.9 x 2.0 cm, suspicious for malignancy. Calcified mediastinal and left hilar lymph nodes were consistent with prior granulomatous disease. He was referred to Dr. Carpenter in [place]. On 10/27/2019 he underwent ERCP by Dr. Jose New. A poorly demarcated 3 cm mass was noted in the pancreatic tail and several enlarged lymph nodes were noted in the periportal region. In aggregate these measured greater than 2.3 cm. FNA biopsy of the pancreatic mass did confirm adenocarcinoma. FNA biopsy of periportal lymph node was negative for metastatic carcinoma. In the context of the CT findings, he was recommended to undergo neoadjuvant chemotherapy prior to definitive surgery. He was seen here initially on 11/16/2019. At that point he still had fairly marginal performance status, and he was clearly not appropriate for the FOLFIRINOX chemotherapy regimen. As such, he began neoadjuvant chemotherapy with gemcitabine/Abraxane on 11/23/2019. With cycle 1 he was able to complete treatment on days 1 and 8, but his day 15 treatment was delayed 1 week due to neutropenia. It had resolved uneventfully with Neupogen. He also experienced significant fatigue with the chemotherapy. He had only mild nausea. He continued with cycle 2 of gmecitabine/Abraxane on 12/28/2019. His treatment was again put on hold at day 15 due to neutropenia. Restaging CT scans of the chest, abdomen, and pelvis on 01/16/2020 showed no change in the low-density lesion in the tail the pancreas measuring 1.51 x 4.64 cm. The spleen showed mild enhancement but with an area of low density consistent with splenic infarction. The splenic artery was noted to be interrupted and probably occluded. There was no adenopathy or other evidence of metastatic involvement in the abdominal area. There was evidence of resolution of the right upper lobe lung lesion. The lesion was noted to have only a thin wall with the appearance of a cavity, possibly representing a simple cyst. He continued with cycle 3-day 1 treatment on 01/18/2020 and with cycle 3-day 8 treatment on 01/25/2020. He then became profoundly weak, and he received no further chemotherapy. He did show gradual recovery from the chemotherapy. His other medical illnesses include hypertension, hyperlipidemia, and coronary artery disease. He has had previous angioplasty/stent placement. He has a history of gout, and he also has a history of esophageal stricture requiring dilatation. He has a history of smoking 1 pack of cigarettes daily for 50 years. INTERIM HISTORY: On 02/27/2020 he underwent exploratory laparotomy with left pancreatectomy and splenectomy, splenic artery lymph node dissection, partial gastrectomy, and omental pedicle flap. Grossly there was no evidence of metastatic disease, but the stomach overlying the pancreatic mass was adherent to it with suspected invasion. Pathology showed residual poorly differentiated ductal adenocarcinoma, ypT2 with 1 mm retroperitoneal margin and with involvement of 2/14 lymph nodes, ypN1. With the involved lymph nodes, he was recommended to have further adjuvant chemotherapy with modified FOLFOX. He began cycle 1 on 04/09/2020. He tolerated with acceptable toxicity. He was then able to continue with cycle 2 on 04/23/2020 and with cycle 3 on 05/07/2020. Neulasta was added prophylactically with cycle 3 due to moderately severe neutropenia, ANC 1500. He did proceed with cycle 4 FOLFOX. He did have a reduction of the oxaliplatin and was administered without Neulasta. He was having significant neuropathy and fatigue/muscle skeletal pain and increased nausea/anorexia. He tolerated that much better. Mr Mata is here today for followup and cycle 5 FOLFOX. He has not been feeling as good since had been prior to the last two chemotherapy treatments. He states he has a ciara down fisrt week. He states he is just draggy. He has had decline in his energy/activity tolerance. ECOG score is 2. Appetite also has been worse, and he has had more trouble eating. He has had no mouth sores. He does not complain of shortness of breath, cough, or chest pain. He has had a little more nausea. He is having to watch his bowels pretty closely, as he fluctuates between diarrhea and constipation. He still has some abdominal discomfort. He has no complaints. He has having numbness/tingling in his hands and feet all the time. He states the neuropathy seems to be a little better this week but no worse. Past Medical History: Coronary artery disease Gout History of esophageal stricture Hyperlipidemia Hypertension Migraine headaches Past Surgical History: ERCP with FNA biopsy of pancreatic mass and periportal lymph node in 2019 Placement of Port-A-Cath venous access device in 2019 Coronary angioplasty/stent placement in 2006 Allergies: No Known Allergies. Medications: Allopurinol 1 Tablet (of 100 mg) Oral daily HYDROcodone-Acetaminophen 1 Tablet (of 5-325 mg) Oral q 6 hours PRN Lisinopril 1 Tablet (of 40 mg) Oral daily Meloxicam 1 Tablet (of 15 mg) Oral daily Metoprolol Tartrate 1 Tablet (of 50 mg) Oral daily Ondansetron HCl 1 Tablet (of 4 mg) Oral PRN Simvastatin 1 Tablet (of 40 mg) Oral daily tiZANidine HCl 1 Tablet (of 4 mg) Oral PRN Topiramate 1 Tablet (of 100 mg) Oral b.i.d. Family History: Mr. Mata's mother at age 91: heart disease, and cancer of unknown primary. Mr. Mata's father at age 91: myocardial infarction. Mr. Mata's maternal grandmother is . Mr. Mata has 1 brother who is alive: colon cancer. Father was found at age 91, thought to be heart related. He had been treated for lung cancer. His mother had Hodgkin's lymphoma in association with rheumatoid arthritis. She of unrelated causes. A brother at age 38, also presumably of heart disease. Another brother has been treated for colon cancer. A maternal aunt has breast cancer. 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 He is a daily smoker who has smoked 1.0 pack/day for 51 years. He drinks daily. He consumes 2 drinks/day 7 days/week. He has indicated exposure to the following products: cigarettes. Mr. Mata reports the following support systems: lives with spouse, significant other, family, or friends, lives in own house, supportive family/friends willing to assist with needs, and adequate transportation available for expected visits. His diet consists of regular meals. He indicates his activity level as: regular exercise. Review Of Symptoms: Constitutional Denies night sweats, excessive fatigue. No recent fever or chills. Energy has been dropping after each treatment . Appetite is down/marginal. Taking Marinol twice a day-1 tablet. Allergic/Immunologic No reactions. Eyes Denies significant visual changes. No diplopia. No amaurosis. ENMT Denies changes in hearing, sore throat, mouth sores, difficulty or changes in swallowing ability, and/or sinus drainage. Hematologic/Lymphatic Denies easy bruising or bleeding. The patient denies any tender or palpable lymph nodes. Respiratory Denies dyspnea on exertion, chest pain, cough or hemoptysis. Denies orthopnea. Cardiovascular Denies anginal chest pain, palpitations or orthopnea. Gastrointestinal Denies nausea, vomiting, diarrhea, GI bleeding, or constipation. Denies change in bowel habits and/or stool color, no heartburn or early satiety. Still having Abdominal tenderness but not pain . Some severe left quadrant abdominal- not bothering me right at the moment . Worse with eating. He is not on any pancreatic lipospase replacement. Genitourinary (M) Denies hematuria, dysuria, increased frequency, urgency, hesitancy or incontinence. Musculoskeletal Denies joint pain, swelling or redness. No decreased range of motion. Integumentary Denies chronic rashes, inflammation, ulcerations or skin changes. Neurologic Denies headache, blurred vision, and no areas of focal weakness. Normal gait. No sensory problems. He is having some intermittent tingling in his fingers and lips and throat area which is cold-induced right after the treatment. He states it last for couple days and then it is gone. It is currently resolved. Psychiatric Denies insomnia, debbie or mood swings. Has noticed situational depression but feels it is controlled. Vital Signs: Performed on Jun 11, 2020 10:55 Height - 68.00 in Weight - 124.6 lbs (HIGH) BSA - 1.67 sq.m BMI - 18.95 Temperature - 97.6 F (LOW) Pulse - 51 /min (LOW) Respiration - 18 /min BP - 190/87 mm(hg) (HIGH) O2 Sat - 96 % Pain - 0,1 - No physically strenuous activity, but ambulatory and able to carry out light or sedentary work (e.g. office work, light house work). (ECOG) Physical Examination: Constitutional Alert, oriented, no acute distress. Skin pink, warm and dry. Head Normocephalic; atraumatic. Eyes Conjunctivae and sclerae are clear and without icterus. Pupils are reactive and equal. Neck Supple without masses or thyromegaly. No jugular venous distension. Hematologic/Lymphatic No petechiae or purpura. No tender or palpable lymph nodes in the cervical or supraclavicular areas. Respiratory Lungs are clear to auscultation without rhonchi or wheezing. Cardiovascular Regular rate and rhythm of heart without murmurs,clicks, gallops or rubs. Chest Right chest wall venous access site is unremarkable. Abdomen Non-tender, non-distended, no masses or ascites. Back/Spine Non-tender to palpation. Extremities No visible deformities, no cyanosis, clubbing or edema. Musculoskeletal No tenderness or swelling, normal range of motion without obvious weakness. Integumentary No rashes or lesions. Neurologic No sensory or motor deficits, normal cerebellar function, normal gait. Psychiatric Alert and oriented times three. Coherent speech. Verbalizes understanding of our discussions today. Laboratory:Test performed on Jun 11, 2020 09:15 Sodium 142 mmol/L Potassium 3.5 mmol/L Chloride 107 mmol/L CO2 26 mmol/L Anion Gap 12.5 BUN 11 mg/dL Creatinine 0.8 mg/dL Cr Clearance (Est) 75.8700 mL/min eGFR 96.7 mL/min Glucose 99 mg/dL Calcium 8.7 mg/dL Protein, Total 6.7 g/dL Albumin 3.5 g/dL Globulin 3.2 g/dL Bilirubin, Total 0.3 mg/dL ALT (SGPT) 8 U/L AST (SGOT) 21 U/L Alkaline Phosphatase 58 IU/L WBC 6.5 10 3/uL RBC 4.30 10 6/uL HGB 13.7 g/dL HCT 42.1 % MCV 97.9 fL MCH 31.9 pg MCHC 32.5 g/dL RDW 16.2 % Platelet Count 236 10 3/cmm MPV 11.2 fL Neutrophils 2.36 10 3/uL Lymphocytes 2.3 10 3/uL Monocytes 1.3 10 3/uL Eosinophils 0.5 10 3/uL Basophils 0.1 10 3/uL Neutrophil % 36.2 % Lymphocyte % 34.7 % Monocyte % 19.7 % Eosinophil % 8.0 % Basophils % 1.2 % NRBC % 0 % Test performed on May 21, 2020 08:30 CBC Slide Review Slide Review Perform SLIDE REVIEW AGREES WITH AUTOMATED RESULTS ST Test performed on May 07, 2020 08:25 Magnesium 2.2 mg/dL Test performed on April 09, 2020 08:45 CA 19-9 12.76 U/mL CEA 1.3 ng/mL Impression: 1. Patient with adenocarcinoma involving the tail of the pancreas, confirmed by FNA biopsy on 10/27/2019. By clinical evaluation his disease appeared to be at least stage T3, N1, though FNA biopsy of periportal lymph node was negative. 2. 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 3. There was CT evidence of a right upper lobe spiculated pulmonary nodule, which was felt to be suspicious for neoplasm, but more likely second primary neoplasm rather than metastasis. 4. There was also a possible hepatic metastasis by CT. 5. He had marginal performance status with weight loss and declining activity tolerance. His other medical illnesses include: 6. Hypertension. 7. Hyperlipidemia. 8. Coronary artery disease with previous angioplasty/stent placement. 9. History of gout. 10. History of esophageal stricture with recent EGD/dilatation procedure. On 11/23/2019 he began neoadjuvant chemotherapy with gemcitabine/Abraxane. With the first cycle his day 15 treatment was delayed 1 week due to neutropenia. Other side effects included fatigue and mild nausea. He had mild musculoskeletal/neuropathy symptoms. He continued with cycle 2 of gmecitabine/Abraxane on 12/28/2019. His treatment was again put on hold at day 15 due to neutropenia. He then continued with cycle 3-day 1 treatment on 01/18/2020 and with cycle 3-day 8 treatment on 01/25/2020. He then became profoundly weak, and he received no further chemotherapy. On 02/27/2020 he underwent exploratory laparotomy with left pancreatectomy and splenectomy, splenic artery lymph node dissection, partial gastrectomy, and omental pedicle flap. Grossly there was no evidence of metastatic disease, but the stomach overlying the pancreatic mass was adherent to it with suspected invasion. Pathology showed residual poorly differentiated ductal adenocarcinoma with 1 mm retroperitoneal margin and with involvement of 2/14 lymph nodes. Final staging was ypT2, ypN1. On 04/09/2020 he began postoperative adjuvant chemotherapy with modified FOLFOX. He has had some fatigue and mild nausea with the 1st cycle, and he had some mild neuropathy symptoms. Overall, though, he tolerated it well. He was able to proceed with cycle 2 on 04/23/2020 and with cycle 3 on 05/07/2020. With cycle 3 was given Neulasta prophylactically for moderately severe neutropenia, ANC 1500. He did experience more significant toxicity following that treatment, including fatigue, nausea/anorexia, musculoskeletal pain, and increased neuropathy. FOLFOX did have a reduction of the oxaliplatin and was administered without Neulasta. He was having significant neuropathy and fatigue/muscle skeletal pain and increased nausea/anorexia. He tolerated that much better. Plan: 1. Proceed with cycle 5 FOLFOX with current oxaliplatin reduction. We will hold his Neulasta. 2. I did ask for CBC for next week because his ANC today is 2400 it was 8000 two weeks ago. 3. Today's labs were reviewed in detail and discussed with Mr. Mata and a copy was given to him. WBC 6.5, hemoglobin 13.7, platelets 236, ANC 2400 potassium 3.5 creatinine 0.8 LFTs are normal. 4. Continues to have a lot of abdominal cramping and nausea when he tries to eat. He is not currently on any pancreatic enzyme replacement. We will see if his insurance will cover it for him and let him try that to see if this helps with his abdominal distress/discomfort. 5. Creon 24,000 units 3 times daily #30 with no refills sent to [facility] employee pharmacy for trial. 6. We will plan to see Mr. Mata back in 2 weeks with CBC CMP. I have asked to recheck a CBC next week as his ANC is 2400 today. We may have to use Neupogen if he becomes severely neutropenic. 7. He was instructed call us in the interim if questions or problems arise. 8. The current plan is to complete 6 cycles of FOLFOX then continue with radiation concurrent with Xeloda for chemosensitization. Signed By: Alyse Mirza-, AOCNP Saud Valadez MD <<Signature on File>>
== END 2020-06-14 23:59 | disposition home or self-care (01) ==
LOC: ONCMED 06:07
PROVIDERS: Internal Medicine Medical Oncology; PCP Family Medicine; Visit Provider Nurse Practitioner
DX: Z51.11 Encounter for antineoplastic chemotherapy (principal); C25.2 Malignant neoplasm of tail of pancreas; Z45.2 Encounter for adjustment and management of vascular access device; R91.8 Other nonspecific abnormal finding of lung field; G62.0 Drug-induced polyneuropathy; T45.1X5A Adverse effect of antineoplastic and immunosuppressive drugs, initial encounter; I10 Essential (primary) hypertension; E78.5 Hyperlipidemia, unspecified; I25.10 Atherosclerotic heart disease of native coronary artery without angina pectoris; Z79.891 Long term (current) use of opiate analgesic; Z95.5 Presence of coronary angioplasty implant and graft; Z90.411 Acquired partial absence of pancreas; Z90.81 Acquired absence of spleen; Z90.3 Acquired absence of stomach [part of]
CPT/HCPCS: 36591; 80053; 85025; 96367; 96368; 96413; 96415; 96416; 96523; 99214; J0640; J1100; J2405; J3490; J9263

== ENCOUNTER 2020-07-03 05:57 | Outpatient (RCR) | payer MEDICARE, OTHER, SELFPAY ==
[2020-06-18 09:25] LABS: Basophils # 0.1 10^3/uL (0.0-0.1); Basophils % 1.2 %; Eosinophils # 0.4 10^3/uL (0.0-0.8); Eosinophils % 8.9 %; Hematocrit 44.7 % (42.0-52.0); Hemoglobin 15.1 g/dL (11.7-16.6); Lymphocytes % 48.3 %; Mean Corpuscular HGB Conc 33.8 g/dL (30.0-36.0); Mean Corpuscular Hemoglobin 33.1 pg (28.0-34.0); Mean Platelet Volume 11.1 fL (7.4-10.4); Monocytes # 0.3 10^3/uL (0.2-0.9); Monocytes % 8.4 %; Neutrophils # 1.32 10^3/uL (1.8-7.7); Neutrophils % 32.7 %; Nucleated Red Blood Cells # 0.1 /100WBC; Nucleated Red Blood Cells % 1.2 %; Platelet Count 184 10^3/cmm (130-400); Red Blood Count 4.56 10^6/uL (4.1-5.3); Red Cell Distribution Width 15.9 % (12.1-15.1)
[2020-06-25 10:08] LABS: Basophils # 0.1 10^3/uL (0.0-0.1); Basophils % 1.3 %; Eosinophils # 0.6 10^3/uL (0.0-0.8); Eosinophils % 7.9 %; Hematocrit 42.5 % (42.0-52.0); Hemoglobin 14.3 g/dL (11.7-16.6); Lymphocytes # 2.4 10^3/uL (0.8-4.8); Mean Corpuscular HGB Conc 33.6 g/dL (30.0-36.0); Mean Corpuscular Hemoglobin 33.5 pg (28.0-34.0); Mean Corpuscular Volume 99.5 fL (80-94); Mean Platelet Volume 10.6 fL (7.4-10.4); Monocytes # 1.1 10^3/uL (0.2-0.9); Neutrophils # 2.82 10^3/uL (1.8-7.7); Neutrophils % 40.4 %; Nucleated Red Blood Cells % 0.3 %; Platelet Count 200 10^3/cmm (130-400); Red Blood Count 4.27 10^6/uL (4.1-5.3); Red Cell Distribution Width 17.4 % (12.1-15.1)
[2020-06-25 10:20] LABS: Alanine Aminotransferase 7 U/L (0-41); Albumin Level 3.8 g/dL (3.5-5.2); Alkaline Phosphatase 71 IU/L (40-130); Anion Gap 13.6 (5-19); Aspartate Amino Transferase 16 U/L (0-40); Blood Urea Nitrogen 9 mg/dL (8-23); Calcium 9.5 mg/dL (8.5-10.5); Carbon Dioxide 25 mmol/L (22-29); Chloride 107 mmol/L (98-107); Globulin 2.7 g/dL (1.3-4.6); Glomerular Filtration Rate 74.8 mL/min (90-130); Glucose 103 mg/dL (65-115); Osmolality Calculated 290 mOsm/kg (285-295); Potassium 3.6 mmol/L (3.5-5.1); Sodium 142 mmol/L (136-145); Total Bilirubin 0.5 mg/dL (0.15-1.2); Total Protein 6.5 g/dL (6.6-8.7)
--- NOTE | 2020-06-26 06:19 | ONC FU_ITS ---
Dr. Valadez Patient Follow-Up Note Patient: Inocencio Mata Unit #: [id number]: 1955 Dicatated By: Saud Valadez M.D.Date of Visit:Jun 25, 2020 Onc Med Follow-up/Prog Note Chief Complaint: Pancreatic cancer/pulmonary nodule. 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 He also had CT evidence of a right upper lobe pulmonary nodule. He has hypertension, hyperlipidemia, and coronary artery disease. In the past he had required esophageal dilatation for esophageal stricture, and the procedure had recently been repeated at [facility] due to recurrence of difficulty swallowing. On 10/19/2019 he presented to the emergency room with fairly abrupt onset of severe pain in the left side of the abdomen and back. His abdominal CT scan showed a focal area of low-attenuation enlargement within the distal tail of the pancreas measuring 4.3 cm, consistent with acute pancreatitis or pancreatic neoplasm. There were findings compatible with splenic infarct, and there was suspected splenic vein thrombosis. Further evaluation with CT angiogram of the chest, abdomen, and pelvis showed a masslike low-attenuation lesion in the tail of the pancreas measuring 4.1 x 1.4 x 2.3 cm, felt to be most consistent with malignancy. Also noted were enlarged retrogastric, peripancreatic, and splenic hilar lymph nodes. A 1 cm focus of hyperattenuation in the liver was suggestive of possible metastasis. 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 The chest showed a spiculated noncalcified right upper lobe mass with eccentric cavitation measuring 1.7 x 0.9 x 2.0 cm, suspicious for malignancy. Calcified mediastinal and left hilar lymph nodes were consistent with prior granulomatous disease. He was referred to Dr. Carpenter in [place]. On 10/27/2019 he underwent ERCP by Dr. Jose New. A poorly demarcated 3 cm mass was noted in the pancreatic tail and several enlarged lymph nodes were noted in the periportal region. In aggregate these measured greater than 2.3 cm. FNA biopsy of the pancreatic mass did confirm adenocarcinoma. FNA biopsy of periportal lymph node was negative for metastatic carcinoma. In the context of the CT findings, he was recommended to undergo neoadjuvant chemotherapy prior to definitive surgery. He was seen here initially on 11/16/2019. At that point he still had fairly marginal performance status, and he was clearly not appropriate for the FOLFIRINOX chemotherapy regimen. As such, he began neoadjuvant chemotherapy with gemcitabine/Abraxane on 11/23/2019. With cycle 1 he was able to complete treatment on days 1 and 8, but his day 15 treatment was delayed 1 week due to neutropenia. It had resolved uneventfully with Neupogen. He also experienced significant fatigue with the chemotherapy. He had only mild nausea. He continued with cycle 2 of gmecitabine/Abraxane on 12/28/2019. His treatment was again put on hold at day 15 due to neutropenia. Restaging CT scans of the chest, abdomen, and pelvis on 01/16/2020 showed no change in the low-density lesion in the tail the pancreas measuring 1.51 x 4.64 cm. The spleen showed mild enhancement but with an area of low density consistent with splenic infarction. The splenic artery was noted to be interrupted and probably occluded. There was no adenopathy or other evidence of metastatic involvement in the abdominal area. There was evidence of resolution of the right upper lobe lung lesion. The lesion was noted to have only a thin wall with the appearance of a cavity, possibly representing a simple cyst. He continued with cycle 3-day 1 treatment on 01/18/2020 and with cycle 3-day 8 treatment on 01/25/2020. He then became profoundly weak, and he received no further chemotherapy. He did show gradual recovery from the chemotherapy. His other medical illnesses include hypertension, hyperlipidemia, and coronary artery disease. He has had previous angioplasty/stent placement. He has a history of gout, and he also has a history of esophageal stricture requiring dilatation. He has a history of smoking 1 pack of cigarettes daily for 50 years. INTERIM HISTORY: On 02/27/2020 he underwent exploratory laparotomy with left pancreatectomy and splenectomy, splenic artery lymph node dissection, partial gastrectomy, and omental pedicle flap. Grossly there was no evidence of metastatic disease, but the stomach overlying the pancreatic mass was adherent to it with suspected invasion. Pathology showed residual poorly differentiated ductal adenocarcinoma, ypT2 with 1 mm retroperitoneal margin and with involvement of 2/14 lymph nodes, ypN1. With the involved lymph nodes, he was recommended to have further adjuvant chemotherapy with modified FOLFOX. He began cycle 1 on 04/09/2020. He tolerated with acceptable toxicity. He was then able to continue with cycle 2 on 04/23/2020 and with cycle 3 on 05/07/2020. Neulasta was added prophylactically with cycle 3 due to moderately severe neutropenia, ANC 1500. He was able to continue with cycle 4 on 05/28/2020 and with cycle 5 on 06/11/2020. He is seen for a followup visit. He has not been feeling good generally. He has a very rough week right after his chemotherapy. During the second week he does start to feel somewhat better, but he is still very tired. 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 ECOG score is 2. Appetite is poor, and he has a bad taste from the chemotherapy. His weight is down just a pound. He has not had fever or night sweats. He complains that he is always cold. His mouth has been a little sore. He has some shortness of breath with activity. He does not have much cough. He has pain across his upper abdomen/lower chest when he eats. He has a little nausea. He has a constant sensation of having to belch. Bowel function remains adequate with senna. He has no complaints. He says his joints are a little sore. He has just very occasional headache. He does not complain of dizziness. He is having constant numbness/tingling in his hands, though he says it is not terrible. Medications: Allopurinol 1 Tablet (of 100 mg) Oral daily, HYDROcodone-Acetaminophen 1 Tablet (of 5-325 mg) Oral q 6 hours PRN, Lisinopril 1 Tablet (of 40 mg) Oral daily, Meloxicam 1 Tablet (of 15 mg) Oral daily, Metoprolol Tartrate 1 Tablet (of 50 mg) Oral daily, Ondansetron HCl 1 Tablet (of 4 mg) Oral PRN, Simvastatin 1 Tablet (of 40 mg) Oral daily, tiZANidine HCl 1 Tablet (of 4 mg) Oral PRN, Topiramate 1 Tablet (of 100 mg) Oral b.i.d. Allergies: No Known Allergies. Review of Systems: Constitutional - His energy and strength has been pretty low. He can do some light outside work. His appetite is poor and his weight is down a few more pounds from last visit. No fevers. He feels cold all the time. No night sweats or hot flashes. ECOG score is 1, ENMT - No sinus congestion/drainage. He has some slight soreness in his mouth. No sore throat or difficulty swallowing, Hematologic/Lymphatic - He bruises easily, Respiratory - He has some shortness of breath with activity. He occasionally has a little cough. No pleuritic pain or hemoptysis, Cardiovascular - No angina pain. No palpitations, Gastrointestinal - He has nausea. No vomiting. He has occasional heartburn. He is taking pantoprazole daily. No diarrhea. He is using Senna-S for constipation. No blood in the stool or black stools. He has pain across his upper abdomen/epigastric area, which mainly occurs with and after meals, Genitourinary (M) - No dysuria or hematuria. No urinary frequency. No urgency or incontinence, Musculoskeletal - He has generalized muscle aches, Integumentary - No skin complications, Neurologic - No headache or dizziness. He has numbness and tingling in his fingers, which is now constant. No other focal neurologic symptoms, Psychiatric - He is having more stress/anxiety. No insomnia. Vital Signs: Performed on Jun 25, 2020 11:05 Height - 68.00 in Weight - 122.8 lbs (LOW) BSA - 1.66 sq.m BMI - 18.67 Temperature - 97.4 F (LOW) Pulse - 50 /min (LOW) Respiration - 18 /min BP - 180/81 mm(hg) (HIGH) O2 Sat - 96 % Pain - 0 Physical Examination: Constitutional - He appears somewhat weak generally, Eyes - Sclerae nonicteric. Conjunctivae clear, ENMT - No lesions noted in the oral cavity, Hematologic/Lymphatic - No cervical, clavicular, or axillary adenopathy, Respiratory - Lungs are clear with diminished air movement bilaterally, Cardiovascular - Heart rhythm is regular. There is no murmur, gallop, or rub noted, Abdomen - Soft. Liver is not enlarged. There is no abdominal mass or ascites noted and there is no inguinal adenopathy, Extremities - No edema, Neurologic - No focal neurologic deficits noted. Lab/Imaging: Test performed on Jun 25, 2020 09:38 Sodium 142 mmol/L Potassium 3.6 mmol/L Chloride 107 mmol/L CO2 25 mmol/L Anion Gap 13.6 BUN 9 mg/dL Creatinine 1.0 mg/dL Cr Clearance (Est) 60.7000 mL/min eGFR 74.8 mL/min Glucose 103 mg/dL Calcium 9.5 mg/dL Protein, Total 6.5 g/dL Albumin 3.8 g/dL Globulin 2.7 g/dL Bilirubin, Total 0.5 mg/dL ALT (SGPT) 7 U/L AST (SGOT) 16 U/L Alkaline Phosphatase 71 IU/L WBC 7.0 10 3/uL RBC 4.27 10 6/uL HGB 14.3 g/dL HCT 42.5 % MCV 99.5 fL MCH 33.5 pg MCHC 33.6 g/dL RDW 17.4 % Platelet Count 200 10 3/cmm MPV 10.6 fL Neutrophils 2.82 10 3/uL Lymphocytes 2.4 10 3/uL Monocytes 1.1 10 3/uL Eosinophils 0.6 10 3/uL Basophils 0.1 10 3/uL Neutrophil % 40.4 % Lymphocyte % 34.0 % Monocyte % 16.0 % Eosinophil % 7.9 % Basophils % 1.3 % NRBC % 0.3 % Impression: 1. Patient with adenocarcinoma involving the tail of the pancreas, confirmed by FNA biopsy on 10/27/2019. By clinical evaluation his disease appeared to be at least stage T3, N1, though FNA biopsy of periportal lymph node was negative. 2. 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 3. There was CT evidence of a right upper lobe spiculated pulmonary nodule, which was felt to be suspicious for neoplasm, but more likely second primary neoplasm rather than metastasis. 4. There was also a possible hepatic metastasis by CT. 5. He had marginal performance status with weight loss and declining activity tolerance. His other medical illnesses include: 6. Hypertension. 7. Hyperlipidemia. 8. Coronary artery disease with previous angioplasty/stent placement. 9. History of gout. 10. History of esophageal stricture with recent EGD/dilatation procedure. On 11/23/2019 he began neoadjuvant chemotherapy with gemcitabine/Abraxane. With the first cycle his day 15 treatment was delayed 1 week due to neutropenia. Other side effects included fatigue and mild nausea. He had mild musculoskeletal/neuropathy symptoms. He continued with cycle 2 of gmecitabine/Abraxane on 12/28/2019. His treatment was again put on hold at day 15 due to neutropenia. He then continued with cycle 3-day 1 treatment on 01/18/2020 and with cycle 3-day 8 treatment on 01/25/2020. He then became profoundly weak, and he received no further chemotherapy. On 02/27/2020 he underwent exploratory laparotomy with left pancreatectomy and splenectomy, splenic artery lymph node dissection, partial gastrectomy, and omental pedicle flap. Grossly there was no evidence of metastatic disease, but the stomach overlying the pancreatic mass was adherent to it with suspected invasion. Pathology showed residual poorly differentiated ductal adenocarcinoma with 1 mm retroperitoneal margin and with involvement of 2/14 lymph nodes. Final staging was ypT2, ypN1. On 04/09/2020 he began postoperative adjuvant chemotherapy with modified FOLFOX. He has had some fatigue and mild nausea with the 1st cycle, and he had some mild neuropathy symptoms. Overall, though, he tolerated it well. He was able to proceed with cycle 2 on 04/23/2020 and with cycle 3 on 05/07/2020. With cycle 3 was given Neulasta prophylactically for moderately severe neutropenia, ANC 1500. He did experience more significant toxicity following that treatment, including fatigue, nausea/anorexia, musculoskeletal pain, and increased neuropathy. He was able to continue with cycle 4 on 05/28/2020 and with cycle 5 on 06/11/2020. However, side effects with the chemotherapy have continued to worsen, most significantly fatigue, anorexia, and neuropathy. Plan: As his treatment-related toxicities have continued to worsen, and going to stop the chemotherapy now. I will plan to discuss the case with Dr. Tucker, as with positive lymph nodes and a close surgical margin, he may also benefit with postoperative radiation. Signed By: Saud Valadez M.D. <<Signature on File>>
--- NOTE | 2020-07-02 11:31 | CT_ITS ---
WS: [id number] CT CHEST, ABDOMEN, AND PELVIS TECHNIQUE: Contrast-enhanced CT of the chest, abdomen, and pelvis with coronal and sagittal reformatt ed images. CLINICAL INFORMATION: PANCREATIC CANCER COMPARISON: CT January 16, 2020. PET/CT November 18, 2019. CTA chest abdomen pelvis and CT abdo men pelvis DLP: 1420.[address] scans at [facility] use at least one of these dose optimization techniques: automat ed exposure control; mA and/or kV adjustment per patient size (includes targeted exams where dose is matched to clinical indication); or iterative reconstruction. CT CHEST: Moderate chronic emphysematous changes. Previously described right upper lobe mass has essentially re solved with a residual thin-walled cyst in this location. No evidence of progressed disease in the ri ght upper lobe. No other suspicious pulmonary parenchymal opacities. No evidence of disease progressi on in the chest. No acute pulmonary infiltrates. No focal pneumonia. Mild aortic calcification. Normal caliber thoraci c aorta. Coronary calcification. Small mediastinal lymph nodes. No mediastinal or hilar lymphadenopat hy. Small esophageal hiatal hernia. No axillary lymphadenopathy. CT ABDOMEN AND PELVIS: Heterogeneously enhancing mass in the left hepatic lobe is new from previous and measures 2.9 x 2.7 c m. There is a new peripheral enhancing filling defect involving the left portal vein likely due to tu mor thrombus. This is new compared to January 16, 2020. Filling defect measures 3.1CM. Right portal vein appears patent. Interval splenectomy. Additional interval resection of the pancreatic tail and presumed pancreatic ta il lesion. Low-attenuation collection in the surgical bed represents postoperative fluid/seroma. Wayne mmend interval follow-up. Small amount of residual pancreatic tissue about the pancreatic head. Adren al Glands are normal. Normal renal parenchymal enhancement. No hydronephrosis. Normal caliber abdomin al aorta. Mild aortic calcification. No periaortic or pelvic lymphadenopathy. Mild degenerative disease in the lower lumbar spine. No acute appearing compression fractures. Notified Wilfrido Tucker MD at 07/02/2020 2:[address]/CT chest abd pel w con* IMPRESSION: 1. Previous described right upper lobe metastatic lesion has essentially resol asia with small residual cystic cavity. No disease progression in the chest. 2. New low-attenuation metastatic lesion involving the left hepatic lobe measu ring 2.9 x 2.7 CM. This is new from previous. 3. New filling defect involving the left portal vein with peripheral enhanceme nt likely represents tumor thrombus. This is new from previous. 4. Interval postoperative changes splenectomy with pancreatic tail resection. Low-attenuation collection in the pancreatic tail bed likely postoperative flui d. Recommend interval follow-up. 5. No abdominal or pelvic lymphadenopathy. 6. No mediastinal or hilar lymphadenopathy. A few shotty mediastinal lymph nod es.
[2020-07-02] MEDS: iohexol 300 mg/mL 50 mL Btl PO (11:47)
[2020-07-02] MEDS: iohexol 300 mg/mL 100 mL Btl IV (13:55)
--- NOTE | 2020-07-02 17:22 | N.ONRAD NP_ITS ---
Radiation Oncology New Patient Visit Patient: Inocencio Mata MR#: [id number] : 1955 Age: 64 Sex: Male Dictated by: Dr. Wilfrido Tucker Date of Service: 07/01/2020 Referring Physician(s) : Dr. 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 Purpose of Visit: Discuss the role of radiotherapy with palliative intent. History of Present Illness: The patient is a 64-year-old male who presented in October 2019 with acute onset pain in his left abdomen and back. A subsequent CT of the abdomen/pelvis (10/19/2019) revealed a 4.3 cm mass in the tail of the pancreas along with radiographic findings concerning for splenic vein thrombosis, splenic infarct, and distal splenic arterial occlusion. 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 The patient was referred to Dr. Carpenter in [place] and a subsequent ERCP (Dr. Jose New-10/27/2019) revealed a 3 cm hypoechoic pancreatic tail mass, a normal-appearing celiac trunk, and a 2.3 cm in diameter conglomeration of periportal lymph nodes. During the procedure, the pancreatic mass was noted to be adherent to the overlying stomach. Pathology from a fine-needle aspiration of the pancreatic tail mass and the periportal lymph nodes, adenocarcinoma in the tail of the pancreas, and no malignancy within the sampled periportal lymph nodes. A subsequent PET/CT (11/18/2019) revealed FDG avidity within the right upper lobe lung nodule concerning for metastasis, a cystic lesion in the spleen measuring 3.5 cm concerning for metastasis, and a right paraesophageal lymph node measuring 2.3 cm (considered likely reactive). The patient was not considered appropriate for FOLFIRINOX regimen, thus he was given 2 cycles of neoadjuvant gemcitabine/Abraxane (11/23/2019 and 12/28/2019 - both cycles complicated due to neutropenia). A subsequent CT of the chest abdomen pelvis (01/16/2020) revealed complete resolution of the right upper lobe mass, an unchanged pancreatic tail mass, and an unchanged occluded splenic artery. The patient continued with cycle 3 of gemcitabine/Abraxane (initiated 01/18/2020) and during the cycle the patient became profoundly weak and received no further chemotherapy. On 02/27/2020 patient underwent exploratory laparotomy, left pancreatectomy, splenectomy, mobilization of splenic flexure, splenic artery lymph node dissection, partial gastrectomy, and omental pedicle flap (Dr Carpenter). Pathology reportedly revealed negative postsurgical margins by 1 mm, and 2 out of 14 involved lymph nodes. The patient was then seen by Dr. Valadez who ultimately decided that the patient did not have a performance status sufficient to tolerate further chemotherapy. The patient was then referred to radiation therapy for evaluation of adjuvant treatment. In consultation today, the patient desires to be aggressive, and reports that his appetite is improving, he has abdominal pain in the left upper quadrant rated 2-3/10 while resting (persistent since surgery close), and improving mild nausea. Imaging Review: I reviewed the radiographic images discussed above. Current Medications: Allopurinol, creon, decadron, dexamethasone, fluorouracil, hYDROcodone-Acetaminophen, hYDROcodone-Acetaminophen, leucovorin Calcium, lisinopril, marinol, meloxicam, metoprolol Tartrate, ondansetron HCl, oxaliplatin, palonosetron HCl, predniSONE, prochlorperazine Maleate, protonix, simvastatin, tiZANidine HCl, topiramate, xarelto. Allergies: No Known Allergies Medical History: - Coronary artery disease, - gout, - history of esophageal stricture, - hyperlipidemia, - hypertension, - migraine headaches. No history of collagen vascular disease. No previous radiation therapy. Surgical History: Coronary angioplasty/stent placement in 2006, eRCP with FNA biopsy of pancreatic mass and periportal lymph node on 10/27/2019 and placement of Port-A-Cath venous access device in 10/2019. Family History: Father is at age 91 having experienced myocardial infarction. Mother is at age 91 having experienced heart disease, and cancer of unknown primary. Brother is alive having experienced colon cancer. Maternal Grandmother is . Father was found at age 91, thought to be heart related. He had been treated for lung cancer. His mother had Hodgkin's lymphoma in association with rheumatoid arthritis. She of unrelated causes. A brother at age 38, also presumably of heart disease. Another brother has been treated for colon cancer. A maternal aunt has breast cancer. Social History: Last screened on 06/25/2020 - Current every day smoker 1.0 pack/day for 51 years (51 pack years). Last screened on 06/25/2020 - Active drinker 2 drinks/day 7 days/week. Patient indicated use of the following products: cigarettes. Patient indicated access to the following support systems: lives with spouse, significant other, family, or friends, lives in own house, supportive family/friends willing to assist with needs, and adequate transportation available for expected visits. Patient indicated the following nutritional habits: regular meals. Patient indicated participation in the following forms of activity: regular exercise. Current Complaints / Review of Systems: Constitutional - Complains of lack of appetite improving, not as good as it use to be prior to chemo, but it is getting better. Altered taste post chemo. Not as hungry as I should be.. Complains of severe fatigue associated with less than normal activity. Complains of rigors / chills Reports he is cold a lot of the time. Cold natured.. Denies fever, lethargy, night sweats and change in weight. Eyes - Complains of blurred vision with current cataracts.. Denies double vision. ENMT - Complains of dysphagia meat and bread are hard to swallow. History of esophageal stretching surgery.. Complains of a moderate hearing impairment right ear is worse than left.. Complains of severe altered taste since chemotherapy started.. Complains of tinnitus constantly, for about 20 years.. Denies ear pain, epistaxis, mouth dryness, oral bleeding, sputum production and stomatitis. Neck - Denies neck masses, neck pain, decreased range of motion and swelling of the neck. Integumentary - Complains of bruising easily. Complains of moderately dry skin. Denies rash and urticaria. Cardiovascular - Complains of mild dyspnea that occurs with activity which is relieved with rest. Denies arrhythmias, chest pain, edema, orthopnea and palpitations. Respiratory - Denies cough, dyspnea, hemoptysis, hiccoughs, pleuritic chest pain and wheezing. Gastrointestinal - Complains of abdominal pain left upper abdomen across stomach rated at 2-3/10 while resting. Reports as constant dull aching since abdomen surgery in February 2020.. Complains of moderate heartburn / dyspepsia. Complains of hemorrhoids. Complains of moderate nausea improving since chemo is completed about 3 weeks ago.. Denies change in bowel habits, constipation regulates wtih sennakot, diarrhea, hematochezia, melena / GI bleeding, pain / cramping and vomiting. Genitourinary (M) - Complains of urgency. Denies dysuria, frequency, hematuria, impotence, incontinence, nocturia and urine color change. Musculoskeletal - Complains of joint pain reports age related. Complains of muscle weakness which is moderate in nature associated with chemotherapy and this condition is improving loss of muscle tone due to weight loss and decreased activity level. Denies bone pain and decreased range of motion. Neurologic - Denies disorientation, dizziness, abnormal gait, headaches, insomnia, motor weakness reports to his fingertips remains the same since stopping chemotherapy 3 weeks ago. Worse in cold weather., sensory problems, paralysis, seizure and stroke. Endocrine - Denies diabetes, hot flashes and thyroid disease. Hematologic/Lymphatic - Complains of easy bruising and this condition is stable. Denies tender or enlarged lymph nodes.. Vital Signs: Performed on 07/01/2020 8:23 AM BMI - 18.429 kg/m2 (low), Height - 68.00 in, Weight - 121.2 lbs, Temperature - 97.9 f, Pulse - 65, Respiration - 17, O2 Sat - 99 % and BP - 170/ 79 mm(hg)(high/). Physical Exam: GENERAL:??? The patient is alert, and in no acute distress. HEENT:??? Head is normocephalic. Face is symmetric. External ocular movements are intact. Sclera and conjunctivae are non erythematous. NECK:??? Trachea is midline.??? Thyroid is not enlarged by palpation.??? LYMPH NODES:??? There is no cervical, supraclavicular, or axillary adenopathy bilaterally. LUNGS:??? Clear to auscultation bilaterally. Respiratory movement is unlabored. HEART:??? Regular rate and rhythm. ABDOMEN:??? Soft, nontender, without palpable mass.??? No hepatosplenomegaly. EXTREMITIES:??? No deformities. NEUROLOGIC:??? Gait and station are normal.??? The patient is well coordinated and strength is equal bilaterally. ELECTRONIC DATA INTERCHANGE SPECIALIST:??? Cranial nerves II-XII are intact and without focal deficits.??? Psych: Affect is normal. Skin: Cursory review of the skin reveals no obvious lesions concerning for malignancy. Pain assessment: This patient???s pain was personally assessed by me. This patient requires no adjustments to pain medications at this time Performance Status: 1 - No physically strenuous activity, but ambulatory and able to carry out light or sedentary work (e.g. office work, light house work). (ECOG) Pathology: Primary, c25.2 - malignant neoplasm of tail of pancreas, Diagnosed 11/16/2019 (active) stage x, t3, n1. Lab: Test performed on 06/25/2020 9:38 AM MCV - 99.5 fl (high), RDW - 17.4 % (high), MPV - 10.6 fl (high), Monocytes - 1.1 10 3/ul (high), Cr Clearance (Est) - 60.7000 ml/min (low), eGFR - 74.8 ml/min (low) and Protein, Total - 6.5 g/dl (low). 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 The patient has been treated with 3 cycles of neoadjuvant Gemcitabine/Abraxane followed by surgical resection. The right upper lobe lesion completely resolved after the second cycle of chemotherapy. Postsurgical margins were negative by 1 mm in the surgeon noted tumor adhesion to the overlying stomach. It is Dr. Valadez's opinion that the patient cannot further tolerate systemic chemotherapy, and therefore radiation therapy was requested to provide a local control benefit. I have ordered a CT of the chest abdomen and pelvis to get a current understanding of the patient's disease burden. We discussed the palliative treatment goals of radiotherapy, prognosis, radiation treatment logistics, and potential acute and late side effects. The patient verbalized understanding of the risks/benefits of radiotherapy and the patient has agreed to proceed as recommended. Therefore the plan is: -) CT Chest Abd/Pelvis FELICIA -) Upon review of imaging consider palliative radiation therapy for a local control benefit. Update 07/02/[address] of the chest abdomen and pelvis (07/02/2020) revealed: -) A new 2.9 x 2.7 cm left hepatic lobe mass highly suspicious for metastasis, -) A new filling defect involving the left portal vein with peripheral enhancement likely representing tumor thrombus; -) No other evidence of metastatic disease. I discussed this case with Dr. Valadez who concurred that the patient should see Dr. Carpenter to discuss further surgical options. Signed by: /Wilfrido Tucker MD 07/02/2020 5:20:49 PM <<Signature on File>> Time spent with patient: CPT Code: CPT Code:
== END 2020-07-15 23:59 | disposition home or self-care (01) ==
LOC: ONCMED 05:57
PROVIDERS: Internal Medicine Medical Oncology; Nurse Practitioner; PCP Family Medicine; Visit Provider Radiology Radiation Oncology
DX: C25.2 Malignant neoplasm of tail of pancreas (principal); I10 Essential (primary) hypertension; E78.5 Hyperlipidemia, unspecified; I25.10 Atherosclerotic heart disease of native coronary artery without angina pectoris; M10.9 Gout, unspecified; Z95.5 Presence of coronary angioplasty implant and graft; Z92.21 Personal history of antineoplastic chemotherapy
CPT/HCPCS: 36591; 71260; 74177; 80053; 85025; 99214; 99215; Q9967

== ENCOUNTER 2020-08-09 08:19 | Outpatient (RCR) | payer MEDICARE, OTHER, SELFPAY ==
[2020-08-09] MEDS: sodium chloride 0.9% 1,000 ML 999 ML IV (09:20)
[2020-08-09 09:36] LABS: Basophils # 0.2 10^3/uL (0.0-0.1); Basophils % 0.7 %; Eosinophils # 3.7 10^3/uL (0.0-0.8); Eosinophils % 13.7 %; Hematocrit 40.3 % (42.0-52.0); Hemoglobin 13.2 g/dL (11.7-16.6); Lymphocytes # 1.6 10^3/uL (0.8-4.8); Lymphocytes % 6.1 %; Mean Corpuscular HGB Conc 32.8 g/dL (30.0-36.0); Mean Corpuscular Hemoglobin 34.6 pg (28.0-34.0); Mean Corpuscular Volume 105.5 fL (80-94); Mean Platelet Volume 10.4 fL (7.4-10.4); Monocytes # 2.7 10^3/uL (0.2-0.9); Monocytes % 9.9 %; Neutrophils # 18.44 10^3/uL (1.8-7.7); Nucleated Red Blood Cells % 0 %; Platelet Count 377 10^3/cmm (130-400); Red Blood Count 3.82 10^6/uL (4.1-5.3); Red Cell Distribution Width 14.3 % (12.1-15.1); White Blood Count 26.7 10^3/uL (4.0-10.0)
[2020-08-09 09:52] LABS: Alanine Aminotransferase 9 U/L (0-41); Albumin Level 3.3 g/dL (3.5-5.2); Alkaline Phosphatase 160 IU/L (40-130); Anion Gap 15.2 (5-19); Aspartate Amino Transferase 22 U/L (0-40); Blood Urea Nitrogen 8 mg/dL (8-23); Calcium 8.9 mg/dL (8.5-10.5); Carbon Dioxide 25 mmol/L (22-29); Chloride 99 mmol/L (98-107); Globulin 3.3 g/dL (1.3-4.6); Glomerular Filtration Rate 134.8 mL/min (90-130); Glucose 130 mg/dL (65-115); Osmolality Calculated 282 mOsm/kg (285-295); Potassium 3.2 mmol/L (3.5-5.1); Sodium 136 mmol/L (136-145); Total Bilirubin 0.7 mg/dL (0.15-1.2); Total Protein 6.6 g/dL (6.6-8.7)
== END 2020-08-14 23:59 | disposition home or self-care (01) ==
LOC: ONCMED 08:19
PROVIDERS: Internal Medicine Medical Oncology; PCP Family Medicine; Visit Provider Radiology Radiation Oncology
DX: C25.2 Malignant neoplasm of tail of pancreas (principal)
CPT/HCPCS: 80053; 85025; 96360; J7030

== ENCOUNTER 2020-08-15 11:25 | Outpatient (CLI) | payer MEDICARE, OTHER, SELFPAY ==
--- NOTE | 2020-08-15 11:36 | CT_ITS ---
WS: [id number] CT ABDOMEN AND PELVIS WITH CONTRAST HISTORY: PANCREATIC CANCER TECHNIQUE: Imaging performed of the abdomen and pelvis with IV contrast. Single phase imaging of the abdomen. Coronal and sagittal reformats are submitted. All CT scans at [facility] use at least one of these dose optimization techniques: automated exposure control; mA and/or kV adjustment per patient size (includes targeted exams where dose is matched to clinical indication); or iterativ e reconstruction. IV CONTRAST: Omnipaque 300; 95 mL IV. Oral contrast: Yes. DLP: 224.93 mGy.cm COMPARISON: 07/02/2020 Lower thorax: New 8.4 mm soft tissue nodule abutting the pleural surface centered over the T11 verteb ral body. Heart is normal size. Small hiatal hernia. Liver/biliary system: Significant progression of metastatic disease throughout the liver since the pr ior examination. Innumerable low-attenuation masses are now present. The largest now measures 6.4 x 5 .0 cm. No duct dilatation. No LEFT portal vein identified today and is probably thrombosed completely . Gallbladder: Normal. No gallstones or wall thickening. No pericholecystic fluid. Pancreas: Interval resection of the pancreatic tail. Postsurgical sutures are present and surrounded by low attenuation. The area of low-attenuation has progressed since the prior study and may be resid ual tumor. Spleen: Prior splenectomy. Adrenal glands: Normal. Right kidney: Normal. Left kidney: Normal. Aorta: Moderate atherosclerosis with no aneurysm. Lymphadenopathy: None. Free fluid: None. GI tract: No obstructive pattern. Postoperative changes or recurrent tumor in the pancreatic body and tail about the lesser curvature the stomach with obliteration of the adjacent fat planes. Abdominal wall: Unremarkable abdominal wall. No hernia. Pelvis: Normal. Bones: No interval change in appearance of the osseous structures. CT/CT abdomen pelvis w con* [id number] IMPRESSION: 1. Significant progression of hepatic metastatic disease since the prior study . The largest mass remains in the LEFT lobe of the liver measuring 6.4 x 5.0 cm . 2. LEFT portal vein not identified today and may be completely thrombosed as i ndicated on the prior study. 3. New 8.4 mm pulmonary nodule medial RIGHT lower lobe may be metastatic site. 4. Postoperative changes near the pancreatic tail. Increasing area of decrease d attenuation. May be postoperative but recurrent neoplasm is not excluded.
[2020-08-15] MEDS: iohexol 300 mg/mL 50 mL Btl PO (12:45)
[2020-08-15] MEDS: iohexol 300 mg/mL 100 mL Btl IV (13:08)
== END 2020-08-15 11:26 | disposition home or self-care (01) ==
LOC: RAD 11:28
PROVIDERS: PCP Family Medicine; Visit Provider Internal Medicine Medical Oncology
DX: C25.2 Malignant neoplasm of tail of pancreas (principal); R16.0 Hepatomegaly, not elsewhere classified; R91.1 Solitary pulmonary nodule
CPT/HCPCS: 74177

== ENCOUNTER 2020-09-02 12:34 | Outpatient (RCR) | payer MEDICARE, OTHER, SELFPAY ==
[2020-08-15] MEDS: sodium chloride 0.9% 1,000 ML 1000 ML IV (09:16)
[2020-08-15 10:08] LABS: Basophils # 0.2 10^3/uL (0.0-0.1); Basophils % 0.7 %; Eosinophils # 4.6 10^3/uL (0.0-0.8); Eosinophils % 14.5 %; Hematocrit 41.7 % (42.0-52.0); Hemoglobin 13.6 g/dL (11.7-16.6); Lymphocytes # 2.3 10^3/uL (0.8-4.8); Lymphocytes % 7.2 %; Mean Corpuscular HGB Conc 32.6 g/dL (30.0-36.0); Mean Corpuscular Hemoglobin 34.8 pg (28.0-34.0); Mean Corpuscular Volume 106.6 fL (80-94); Mean Platelet Volume 11.1 fL (7.4-10.4); Monocytes # 2.9 10^3/uL (0.2-0.9); Neutrophils # 21.41 10^3/uL (1.8-7.7); Neutrophils % 67.7 %; Nucleated Red Blood Cells % 0 %; Platelet Count 321 10^3/cmm (130-400); Red Blood Count 3.91 10^6/uL (4.1-5.3); Red Cell Distribution Width 14.1 % (12.1-15.1)
[2020-08-15 10:16] LABS: White Blood Count 31.6 10^3/uL (4.0-10.0)
[2020-08-15 10:28] LABS: Alanine Aminotransferase 10 U/L (0-41); Albumin Level 3.3 g/dL (3.5-5.2); Alkaline Phosphatase 192 IU/L (40-130); Anion Gap 14.3 (5-19); Aspartate Amino Transferase 21 U/L (0-40); Blood Urea Nitrogen 12 mg/dL (8-23); Calcium 9.3 mg/dL (8.5-10.5); Carbon Dioxide 24 mmol/L (22-29); Chloride 102 mmol/L (98-107); Globulin 3.2 g/dL (1.3-4.6); Glomerular Filtration Rate 112.8 mL/min (90-130); Glucose 98 mg/dL (65-115); Magnesium 2.2 mg/dL (1.7-2.3); Osmolality Calculated 284 mOsm/kg (285-295); Potassium 3.3 mmol/L (3.5-5.1); Sodium 137 mmol/L (136-145); Total Bilirubin 0.7 mg/dL (0.15-1.2); Total Protein 6.5 g/dL (6.6-8.7)
--- NOTE | 2020-08-16 07:47 | ONC FU_ITS ---
Dr. Valadez Patient Follow-Up Note Patient: Inocencio Mata Unit #: [id number]: 1955 Dicatated By: Saud Valadez M.D.Date of Visit:Aug 15, 2020 Onc Med Follow-up/Prog Note Chief Complaint: Pancreatic cancer/pulmonary nodule. 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 He also had CT evidence of a right upper lobe pulmonary nodule. He has hypertension, hyperlipidemia, and coronary artery disease. In the past he had required esophageal dilatation for esophageal stricture, and the procedure had recently been repeated at [facility] due to recurrence of difficulty swallowing. On 10/19/2019 he presented to the emergency room with fairly abrupt onset of severe pain in the left side of the abdomen and back. His abdominal CT scan showed a focal area of low-attenuation enlargement within the distal tail of the pancreas measuring 4.3 cm, consistent with acute pancreatitis or pancreatic neoplasm. There were findings compatible with splenic infarct, and there was suspected splenic vein thrombosis. Further evaluation with CT angiogram of the chest, abdomen, and pelvis showed a masslike low-attenuation lesion in the tail of the pancreas measuring 4.1 x 1.4 x 2.3 cm, felt to be most consistent with malignancy. Also noted were enlarged retrogastric, peripancreatic, and splenic hilar lymph nodes. A 1 cm focus of hyperattenuation in the liver was suggestive of possible metastasis. 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 The chest showed a spiculated noncalcified right upper lobe mass with eccentric cavitation measuring 1.7 x 0.9 x 2.0 cm, suspicious for malignancy. Calcified mediastinal and left hilar lymph nodes were consistent with prior granulomatous disease. He was referred to Dr. Carpenter in [place]. On 10/27/2019 he underwent ERCP by Dr. Jose New. A poorly demarcated 3 cm mass was noted in the pancreatic tail and several enlarged lymph nodes were noted in the periportal region. In aggregate these measured greater than 2.3 cm. FNA biopsy of the pancreatic mass did confirm adenocarcinoma. FNA biopsy of periportal lymph node was negative for metastatic carcinoma. In the context of the CT findings, he was recommended to undergo neoadjuvant chemotherapy prior to definitive surgery. He was seen here initially on 11/16/2019. At that point he still had fairly marginal performance status, and he was clearly not appropriate for the FOLFIRINOX chemotherapy regimen. As such, he began neoadjuvant chemotherapy with gemcitabine/Abraxane on 11/23/2019. With cycle 1 he was able to complete treatment on days 1 and 8, but his day 15 treatment was delayed 1 week due to neutropenia. It had resolved uneventfully with Neupogen. He also experienced significant fatigue with the chemotherapy. He had only mild nausea. He continued with cycle 2 of gmecitabine/Abraxane on 12/28/2019. His treatment was again put on hold at day 15 due to neutropenia. Restaging CT scans of the chest, abdomen, and pelvis on 01/16/2020 showed no change in the low-density lesion in the tail the pancreas measuring 1.51 x 4.64 cm. The spleen showed mild enhancement but with an area of low density consistent with splenic infarction. The splenic artery was noted to be interrupted and probably occluded. There was no adenopathy or other evidence of metastatic involvement in the abdominal area. There was evidence of resolution of the right upper lobe lung lesion. The lesion was noted to have only a thin wall with the appearance of a cavity, possibly representing a simple cyst. He continued with cycle 3-day 1 treatment on 01/18/2020 and with cycle 3-day 8 treatment on 01/25/2020. He then became profoundly weak, and he received no further chemotherapy. He did show gradual recovery from the chemotherapy. His other medical illnesses include hypertension, hyperlipidemia, and coronary artery disease. He has had previous angioplasty/stent placement. He has a history of gout, and he also has a history of esophageal stricture requiring dilatation. He has a history of smoking 1 pack of cigarettes daily for 50 years. INTERIM HISTORY: On 02/27/2020 he underwent exploratory laparotomy with left pancreatectomy and splenectomy, splenic artery lymph node dissection, partial gastrectomy, and omental pedicle flap. Grossly there was no evidence of metastatic disease, but the stomach overlying the pancreatic mass was adherent to it with suspected invasion. Pathology showed residual poorly differentiated ductal adenocarcinoma, ypT2 with 1 mm retroperitoneal margin and with involvement of 2/14 lymph nodes, ypN1. With the involved lymph nodes, he was recommended to have further adjuvant chemotherapy with modified FOLFOX. He began cycle 1 on 04/09/2020. He tolerated with acceptable toxicity. He was then able to continue with cycle 2 on 04/23/2020 and with cycle 3 on 05/07/2020. Neulasta was added prophylactically with cycle 3 due to moderately severe neutropenia, ANC 1500. He was able to continue with cycle 4 on 05/28/2020 and with cycle 5 on 06/11/2020. Restaging CT scans of the chest, abdomen, and pelvis on 07/02/2020 showed resolution of the previously described right upper lobe pulmonary nodule, with just a small residual cystic cavity. A new low-attenuation metastatic lesion was noted in the left hepatic lobe measuring 2.9 x 2.7 cm. There was a new filling defect involving the left portal vein with peripheral enhancement, felt to likely represent tumor thrombus. There was no adenopathy or other evidence of metastatic disease noted within the chest, abdomen, or pelvis. With those findings, he was referred to Dr. Carpenter for consideration of liver directed therapy. He is seen for an unplanned visit. He has been tentatively scheduled to undergo liver directed therapy in [place] next week. In the meantime, he has been feeling progressively worse, mainly with watery diarrhea for the past 2 weeks. He has been having watery stools up to 6 times a day, and anything he has eaten has been going right through him. His weight is dropped another 11 pounds. He has been having more pain in the mid abdominal area and in the right upper quadrant. He is much weaker generally, and there has been a significant decline in his activity. His ECOG score is 2. He had been taking tramadol for the pain, but he recently changed that to hydrocodone/APAP when his tramadol prescription ran out. He had also been taking Mylanta for heartburn. We had requested that he bring in a stool sample for testing, but the diarrhea does seem to have stopped since yesterday. Medications: Allopurinol 1 Tablet (of 100 mg) Oral daily, Lisinopril 1 Tablet (of 40 mg) Oral daily, Metoprolol Tartrate 1 Tablet (of 50 mg) Oral daily, Ondansetron HCl 1 Tablet (of 4 mg) Oral PRN, Simvastatin 1 Tablet (of 40 mg) Oral daily, tiZANidine HCl 1 Tablet (of 4 mg) Oral PRN, Topiramate 1 Tablet (of 100 mg) Oral b.i.d. Allergies: No Known Allergies. Review of Systems: Constitutional - He has not been feeling good. He is very weak and his activitiy has decreased. He is still able to do some very light work and some walking. His appetite is poor and his weight is down another 11 pounds. No fever, night sweats, or hot flashes. ECOG score is 2, ENMT - No sinus congestion/drainage. No mouth sores. No sore throat or difficulty swallowing, Hematologic/Lymphatic - He bruises easily, Respiratory - He has some shortness of breath. No cough. No pleuritic pain or hemoptysis, Cardiovascular - No angina pain. No palpitations, Gastrointestinal - He's had some mild nausea and he has been taking Mylanta for heartburn. He has had frequent liquid-watery stools for about 2 weeks. He says that anything he ate went right through him, but as of yesterday it seems to have resolved. No blood in the stool or black stools. He has been having more abdominal pain, and the mid abdomen and right upper quadrant, Genitourinary (M) - No dysuria or hematuria. No urinary frequency. No urgency or incontinence, Musculoskeletal - He has some generalized aching, Integumentary - No skin complications, Neurologic - No headache. He has dizziness. He has some numbness/tingling in his hands. No other focal neurologic symptoms, Psychiatric - He has anxiety and depression. He sleeps better with trazodone. Vital Signs: Performed on Aug 15, 2020 08:35 Height - 68.00 in Weight - 113.6 lbs (LOW) BSA - 1.61 sq.m BMI - 17.27 (LOW) Temperature - 97.2 F (LOW) Pulse - 90 /min Respiration - 20 /min BP - 141/79 mm(hg) (HIGH) O2 Sat - 99 % Pain - 8 Physical Examination: Constitutional - He appears generally weak. He has noticeable weight loss, Eyes - Sclerae nonicteric. Conjunctivae clear, ENMT - No lesions noted in the oral cavity, Hematologic/Lymphatic - No cervical, clavicular, or axillary adenopathy, Respiratory - Lungs are clear with diminished air movement bilaterally, Cardiovascular - Heart rhythm is regular. There is no murmur, gallop, or rub noted, Abdomen - Soft. Liver is not enlarged. There is no abdominal mass or ascites noted and there is no inguinal adenopathy, Extremities - No edema, Neurologic - No focal neurologic deficits noted. Lab/Imaging: Test performed on Aug 15, 2020 09:16 Magnesium 2.2 mg/dL Sodium 137 mmol/L Potassium 3.3 mmol/L Chloride 102 mmol/L CO2 24 mmol/L Anion Gap 14.3 BUN 12 mg/dL Creatinine 0.7 mg/dL Cr Clearance (Est) 75.6600 mL/min eGFR 112.8 mL/min Glucose 98 mg/dL Osmolality - Calculated 284 mOsm/kg Calcium 9.3 mg/dL Protein, Total 6.5 g/dL Albumin 3.3 g/dL Globulin 3.2 g/dL Bilirubin, Total 0.7 mg/dL ALT (SGPT) 10 U/L AST (SGOT) 21 U/L Alkaline Phosphatase 192 IU/L WBC 31.6 10 3/uL RBC 3.91 10 6/uL HGB 13.6 g/dL HCT 41.7 % MCV 106.6 fL MCH 34.8 pg MCHC 32.6 g/dL RDW 14.1 % Platelet Count 321 10 3/cmm MPV 11.1 fL Neutrophils 21.41 10 3/uL Lymphocytes 2.3 10 3/uL Monocytes 2.9 10 3/uL Eosinophils 4.6 10 3/uL Basophils 0.2 10 3/uL Neutrophil % 67.7 % Lymphocyte % 7.2 % Monocyte % 9.0 % Eosinophil % 14.5 % Basophils % 0.7 % NRBC % 0 % Impression: 1. Patient with adenocarcinoma involving the tail of the pancreas, confirmed by FNA biopsy on 10/27/2019. By clinical evaluation his disease appeared to be at least stage T3, N1, though FNA biopsy of periportal lymph node was negative. 2. 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 3. There was CT evidence of a right upper lobe spiculated pulmonary nodule, which was felt to be suspicious for neoplasm, but more likely second primary neoplasm rather than metastasis. 4. There was also a possible hepatic metastasis by CT. 5. He had marginal performance status with weight loss and declining activity tolerance. His other medical illnesses include: 6. Hypertension. 7. Hyperlipidemia. 8. Coronary artery disease with previous angioplasty/stent placement. 9. History of gout. 10. History of esophageal stricture with recent EGD/dilatation procedure. On 11/23/2019 he began neoadjuvant chemotherapy with gemcitabine/Abraxane. With the first cycle his day 15 treatment was delayed 1 week due to neutropenia. Other side effects included fatigue and mild nausea. He had mild musculoskeletal/neuropathy symptoms. He continued with cycle 2 of gmecitabine/Abraxane on 12/28/2019. His treatment was again put on hold at day 15 due to neutropenia. He then continued with cycle 3-day 1 treatment on 01/18/2020 and with cycle 3-day 8 treatment on 01/25/2020. He then became profoundly weak, and he received no further chemotherapy. On 02/27/2020 he underwent exploratory laparotomy with left pancreatectomy and splenectomy, splenic artery lymph node dissection, partial gastrectomy, and omental pedicle flap. Grossly there was no evidence of metastatic disease, but the stomach overlying the pancreatic mass was adherent to it with suspected invasion. Pathology showed residual poorly differentiated ductal adenocarcinoma with 1 mm retroperitoneal margin and with involvement of 2/14 lymph nodes. Final staging was ypT2, ypN1. On 04/09/2020 he began postoperative adjuvant chemotherapy with modified FOLFOX. He has had some fatigue and mild nausea with the 1st cycle, and he had some mild neuropathy symptoms. Overall, though, he tolerated it well. He was able to proceed with cycle 2 on 04/23/2020 and with cycle 3 on 05/07/2020. With cycle 3 was given Neulasta prophylactically for moderately severe neutropenia, ANC 1500. He did experience more significant toxicity following that treatment, including fatigue, nausea/anorexia, musculoskeletal pain, and increased neuropathy. He was able to continue with cycle 4 on 05/28/2020 and with cycle 5 on 06/11/2020. At that point he was having significant side effects with the chemotherapy, including fatigue, anorexia, and neuropathy. Restaging CT scans on 07/02/2020 showed almost complete resolution of the previously noted right upper lobe pulmonary nodule. There is a new metastatic lesion noted in the left hepatic lobe measuring 2.9 x 2.7 cm and there was a new filling defect noted in the left portal vein which appeared to be consistent with tumor thrombus. Given those findings, he was referred to Dr. Carpenter for liver directed therapy, which tentatively has been scheduled for next week. However, in the meantime, he has been feeling progressively worse with 2 weeks of watery diarrhea, increasing abdominal pain, and increasing weakness/fatigue. Plan: He will be given IV hydration today and he will be scheduled to come in for additional IV hydration daily, as needed. He will be scheduled for repeat CT abdomen/pelvis. He will have further evaluation as indicated. In the meantime, he is advised to stop tramadol and meloxicam and is also advised not to take any further Mylanta. He will take omeprazole for heartburn/acid reflux and he will be given a prescription for MSIR 15 mg to take as needed for pain. For now he will continue anticoagulation with apixaban 2.5 mg twice daily. It will be transitioned to rivaroxaban 10 mg daily once he uses up his current supply. If he has further diarrhea he will bring in a stool sample for culture and for C. difficile testing. Signed By: Saud Valadez M.D. <<Signature on File>>
[2020-08-19] MEDS: sodium chloride 0.9% 1,000 ML 999 ML IV (08:30)
[2020-08-21] MEDS: sodium chloride 0.9% 1,000 ML 1000 ML IV (08:15)
[2020-08-21] MEDS: sodium chloride 0.9% 1,000 ML 999 ML IV (08:20)
[2020-08-21 09:55] VITALS: RESP 18; O2SAT 98
[2020-08-21] MEDS: HYDROmorphone 1 mg/mL INJ 1 mL 2 MG IV ×2 (09:55→15:42)
[2020-08-21] MEDS: sodium chloride 0.9% 500 ML 999 ML IV (10:00)
[2020-08-21 10:29] LABS: Basophils # 0.2 10^3/uL (0.0-0.1); Basophils % 0.6 %; Eosinophils # 3.7 10^3/uL (0.0-0.8); Eosinophils % 11.4 %; Hematocrit 35.7 % (42.0-52.0); Hemoglobin 11.7 g/dL (11.7-16.6); Lymphocytes # 0.9 10^3/uL (0.8-4.8); Lymphocytes % 2.7 %; Mean Corpuscular HGB Conc 32.8 g/dL (30.0-36.0); Mean Corpuscular Hemoglobin 35.7 pg (28.0-34.0); Mean Corpuscular Volume 108.8 fL (80-94); Monocytes # 2.6 10^3/uL (0.2-0.9); Monocytes % 8.2 %; Neutrophils # 24.15 10^3/uL (1.8-7.7); Neutrophils % 75.5 %; Nucleated Red Blood Cells % 0 %; Platelet Count 253 10^3/cmm (130-400); Red Blood Count 3.28 10^6/uL (4.1-5.3); Red Cell Distribution Width 14.5 % (12.1-15.1)
[2020-08-21 11:02] LABS: Alanine Aminotransferase 12 U/L (0-41); Albumin Level 2.7 g/dL (3.5-5.2); Alkaline Phosphatase 181 IU/L (40-130); Anion Gap 15.2 (5-19); Aspartate Amino Transferase 24 U/L (0-40); Blood Urea Nitrogen 10 mg/dL (8-23); Carbon Dioxide 22 mmol/L (22-29); Chloride 106 mmol/L (98-107); Globulin 2.6 g/dL (1.3-4.6); Glomerular Filtration Rate 166.4 mL/min (90-130); Glucose 84 mg/dL (65-115); Magnesium 1.7 mg/dL (1.7-2.3); Osmolality Calculated 288 mOsm/kg (285-295); Potassium 3.2 mmol/L (3.5-5.1); Sodium 140 mmol/L (136-145); Total Bilirubin 1.2 mg/dL (0.15-1.2); Total Protein 5.3 g/dL (6.6-8.7)
[2020-08-22] MEDS: potassium chloride premix 100 ML 25 MEQ IV (13:30)
[2020-08-22 13:40] VITALS: RESP 18; O2SAT 98
[2020-08-22] MEDS: HYDROmorphone 1 mg/mL INJ 1 mL 2 MG IVP ×2 (13:40→14:00)
[2020-08-22] MEDS: sodium chloride 0.9% 500 ML 125 ML IV (13:45)
[2020-08-22] MEDS: sodium chloride 0.9% 250 ML 500 ML IV (13:50)
[2020-08-22 14:00] VITALS: RESP 18; O2SAT 97
--- NOTE | 2020-08-25 13:47 | ONC FU_ITS ---
[facility] Patient Note Patient: Inocencio Mata Unit #: [id number]: 1955 Dictated By: Alyse MirzaDate of Visit: Aug 21, 2020 Onc MED Follow-Up/Prog Note Chief Complaint: Pancreatic cancer/pulmonary nodule. 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 He also had CT evidence of a right upper lobe pulmonary nodule. He has hypertension, hyperlipidemia, and coronary artery disease. In the past he had required esophageal dilatation for esophageal stricture, and the procedure had recently been repeated at [facility] due to recurrence of difficulty swallowing. On 10/19/2019 he presented to the emergency room with fairly abrupt onset of severe pain in the left side of the abdomen and back. His abdominal CT scan showed a focal area of low-attenuation enlargement within the distal tail of the pancreas measuring 4.3 cm, consistent with acute pancreatitis or pancreatic neoplasm. There were findings compatible with splenic infarct, and there was suspected splenic vein thrombosis. Further evaluation with CT angiogram of the chest, abdomen, and pelvis showed a masslike low-attenuation lesion in the tail of the pancreas measuring 4.1 x 1.4 x 2.3 cm, felt to be most consistent with malignancy. Also noted were enlarged retrogastric, peripancreatic, and splenic hilar lymph nodes. A 1 cm focus of hyperattenuation in the liver was suggestive of possible metastasis. 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 The chest showed a spiculated noncalcified right upper lobe mass with eccentric cavitation measuring 1.7 x 0.9 x 2.0 cm, suspicious for malignancy. Calcified mediastinal and left hilar lymph nodes were consistent with prior granulomatous disease. He was referred to Dr. Carpenter in [place]. On 10/27/2019 he underwent ERCP by Dr. Jose New. A poorly demarcated 3 cm mass was noted in the pancreatic tail and several enlarged lymph nodes were noted in the periportal region. In aggregate these measured greater than 2.3 cm. FNA biopsy of the pancreatic mass did confirm adenocarcinoma. FNA biopsy of periportal lymph node was negative for metastatic carcinoma. In the context of the CT findings, he was recommended to undergo neoadjuvant chemotherapy prior to definitive surgery. He was seen here initially on 11/16/2019. At that point he still had fairly marginal performance status, and he was clearly not appropriate for the FOLFIRINOX chemotherapy regimen. As such, he began neoadjuvant chemotherapy with gemcitabine/Abraxane on 11/23/2019. With cycle 1 he was able to complete treatment on days 1 and 8, but his day 15 treatment was delayed 1 week due to neutropenia. It had resolved uneventfully with Neupogen. He also experienced significant fatigue with the chemotherapy. He had only mild nausea. He continued with cycle 2 of gmecitabine/Abraxane on 12/28/2019. His treatment was again put on hold at day 15 due to neutropenia. Restaging CT scans of the chest, abdomen, and pelvis on 01/16/2020 showed no change in the low-density lesion in the tail the pancreas measuring 1.51 x 4.64 cm. The spleen showed mild enhancement but with an area of low density consistent with splenic infarction. The splenic artery was noted to be interrupted and probably occluded. There was no adenopathy or other evidence of metastatic involvement in the abdominal area. There was evidence of resolution of the right upper lobe lung lesion. The lesion was noted to have only a thin wall with the appearance of a cavity, possibly representing a simple cyst. He continued with cycle 3-day 1 treatment on 01/18/2020 and with cycle 3-day 8 treatment on 01/25/2020. He then became profoundly weak, and he received no further chemotherapy. He did show gradual recovery from the chemotherapy. His other medical illnesses include hypertension, hyperlipidemia, and coronary artery disease. He has had previous angioplasty/stent placement. He has a history of gout, and he also has a history of esophageal stricture requiring dilatation. He has a history of smoking 1 pack of cigarettes daily for 50 years. INTERIM HISTORY: On 02/27/2020 he underwent exploratory laparotomy with left pancreatectomy and splenectomy, splenic artery lymph node dissection, partial gastrectomy, and omental pedicle flap. Grossly there was no evidence of metastatic disease, but the stomach overlying the pancreatic mass was adherent to it with suspected invasion. Pathology showed residual poorly differentiated ductal adenocarcinoma, ypT2 with 1 mm retroperitoneal margin and with involvement of 2/14 lymph nodes, ypN1. With the involved lymph nodes, he was recommended to have further adjuvant chemotherapy with modified FOLFOX. He began cycle 1 on 04/09/2020. He tolerated with acceptable toxicity. He was then able to continue with cycle 2 on 04/23/2020 and with cycle 3 on 05/07/2020. Neulasta was added prophylactically with cycle 3 due to moderately severe neutropenia, ANC 1500. He was able to continue with cycle 4 on 05/28/2020 and with cycle 5 on 06/11/2020. Restaging CT scans of the chest, abdomen, and pelvis on 07/02/2020 showed resolution of the previously described right upper lobe pulmonary nodule, with just a small residual cystic cavity. A new low-attenuation metastatic lesion was noted in the left hepatic lobe measuring 2.9 x 2.7 cm. There was a new filling defect involving the left portal vein with peripheral enhancement, felt to likely represent tumor thrombus. There was no adenopathy or other evidence of metastatic disease noted within the chest, abdomen, or pelvis. With those findings, he was referred to Dr. Carpenter for consideration of liver directed therapy. Mr Mata is here today for an unplanned visit. He has been tentatively scheduled to undergo liver directed therapy in [place] tomorrow. In the meantime, he has been feeling progressively worse. He presented late last week with complaints of watery diarrhea for the past 2 weeks. He had been having watery stools up to 6 times a day. He was tested for C. difficile which was negative. He has had decline in the diarrhea and states the stools are now more soft formed and no longer watery. He is only had a couple a day for the last couple days and none since the day before yesterday. He has been having more pain in the mid abdominal area and in the right upper quadrant. He is much weaker generally, and there has been a significant decline in his activity. His ECOG score is 2. His pain medicine was switched to morphine last week and since then he is also had increasing confusion. Mrs. De La Cruz states that he keeps being confused and is not reliable in his statements. She has not seen his stools so is unsure about the diarrhea herself. She states she thinks the tramadol is causing him to have diarrhea. The hydrocodone does not help at all. He continues to have little to no appetite. She states he is eating to scant amounts of food. He is not drinking fluids well either. He denies any fever or chills. Has had no nausea or vomiting. She states that she thinks he did feel some better after hydration last week. Past Medical History: Coronary artery disease Gout History of esophageal stricture Hyperlipidemia Hypertension Migraine headaches Past Surgical History: ERCP with FNA biopsy of pancreatic mass and periportal lymph node in 2019 Placement of Port-A-Cath venous access device in 2018 Coronary angioplasty/stent placement in 2006 Allergies: No Known Allergies. Medications: Allopurinol 1 Tablet (of 100 mg) Oral daily Lisinopril 1 Tablet (of 40 mg) Oral daily Metoprolol Tartrate 1 Tablet (of 50 mg) Oral daily Ondansetron HCl 1 Tablet (of 4 mg) Oral PRN Simvastatin 1 Tablet (of 40 mg) Oral daily tiZANidine HCl 1 Tablet (of 4 mg) Oral PRN Topiramate 1 Tablet (of 100 mg) Oral b.i.d. Family History: Mr. Mata's mother at age 91: heart disease, and cancer of unknown primary. Mr. Mata's father at age 91: myocardial infarction. Mr. Mata's maternal grandmother is . Mr. Mata has 1 brother who is alive: colon cancer. Father was found at age 91, thought to be heart related. He had been treated for lung cancer. His mother had Hodgkin's lymphoma in association with rheumatoid arthritis. She of unrelated causes. A brother at age 38, also presumably of heart disease. Another brother has been treated for colon cancer. A maternal aunt has breast cancer. 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 He is a daily smoker who has smoked 1.0 pack/day for 51 years. He drinks daily. He consumes 2 drinks/day 7 days/week. He has indicated exposure to the following products: cigarettes. Mr. Mata reports the following support systems: lives with spouse, significant other, family, or friends, lives in own house, supportive family/friends willing to assist with needs, and adequate transportation available for expected visits. His diet consists of regular meals. He indicates his activity level as: regular exercise. Review Of Symptoms: Constitutional Generalized weakness and overall performance status decline over the last week. Not eating or drinking well at all. Confusion. Allergic/Immunologic No reactions. Eyes Denies significant visual changes. No diplopia. No amaurosis. ENMT Denies changes in hearing, sore throat, mouth sores, difficulty or changes in swallowing ability, and/or sinus drainage. Hematologic/Lymphatic Denies easy bruising or bleeding. The patient denies any tender or palpable lymph nodes. Respiratory Denies dyspnea on exertion, chest pain, cough or hemoptysis. Denies orthopnea. Cardiovascular Denies anginal chest pain, palpitations or orthopnea. Gastrointestinal Diarrhea better overall. Musculoskeletal Denies joint pain, swelling or redness. No decreased range of motion. Integumentary Denies chronic rashes, inflammation, ulcerations or skin changes. Neurologic appropriate speech today but repeats questions or statements as if he can't remember the discuss just before his question/statement. Accompanied by Mrs Mata. Vital Signs: Performed on Aug 21, 2020 09:11 Height - 68.00 in Weight - 119.4 lbs (HIGH) BSA - 1.64 sq.m BMI - 18.15 Temperature - 98.3 F (LOW) Pulse - 73 /min Respiration - 18 /min BP - 172/77 mm(hg) (HIGH) O2 Sat - 92 % (LOW) Pain - 9,3 - Capable of only limited self-care, confined to bed or chair more than 50% of waking hours. (ECOG) Physical Examination: Constitutional Alert, oriented, no acute distress but obviously does not feel well. Skin pink, warm and dry. Head Normocephalic; atraumatic. Eyes Conjunctivae and sclerae are clear and without icterus. Pupils are reactive and equal. Neck Supple without masses or thyromegaly. No jugular venous distension. Hematologic/Lymphatic No petechiae or purpura. No tender or palpable lymph nodes in the cervical or supraclavicular areas. Respiratory Lungs are clear to auscultation without rhonchi or wheezing. Cardiovascular Regular rate and rhythm of heart without murmurs,clicks, gallops or rubs. Chest Right chest wall venous access site is unremarkable. Abdomen Non-tender, non-distended, no masses or ascites. Back/Spine Non-tender to palpation. Extremities No visible deformities, no cyanosis, clubbing or edema. Musculoskeletal No tenderness or swelling, normal range of motion without obvious weakness. Integumentary No rashes or lesions. Neurologic No sensory or motor deficits, normal cerebellar function, normal gait-weak in general. Psychiatric Alert and oriented times three. Coherent speech. Verbalizes understanding of our discussions today. Laboratory:Test performed on Aug 21, 2020 10:12 Magnesium 1.7 mg/dL Sodium 140 mmol/L Potassium 3.2 mmol/L Chloride 106 mmol/L CO2 22 mmol/L Anion Gap 15.2 BUN 10 mg/dL Creatinine 0.5 mg/dL Cr Clearance (Est) 111.3300 mL/min eGFR 166.4 mL/min Glucose 84 mg/dL Osmolality - Calculated 288 mOsm/kg Calcium 8.0 mg/dL Protein, Total 5.3 g/dL Albumin 2.7 g/dL Globulin 2.6 g/dL Bilirubin, Total 1.2 mg/dL ALT (SGPT) 12 U/L AST (SGOT) 24 U/L Alkaline Phosphatase 181 IU/L WBC 32.0 10 3/uL RBC 3.28 10 6/uL HGB 11.7 g/dL HCT 35.7 % MCV 108.8 fL MCH 35.7 pg MCHC 32.8 g/dL RDW 14.5 % Platelet Count 253 10 3/cmm MPV 11.0 fL Neutrophils 24.15 10 3/uL Lymphocytes 0.9 10 3/uL Monocytes 2.6 10 3/uL Eosinophils 3.7 10 3/uL Basophils 0.2 10 3/uL Neutrophil % 75.5 % Lymphocyte % 2.7 % Monocyte % 8.2 % Eosinophil % 11.4 % Basophils % 0.6 % NRBC % 0 % CA 19-9 682.0 U/mL CEA 371.0 ng/mL Test performed on May 21, 2020 08:30 CBC Slide Review Slide Review Perform SLIDE REVIEW AGREES WITH AUTOMATED RESULTS ST Impression: 1. Patient with adenocarcinoma involving the tail of the pancreas, confirmed by FNA biopsy on 10/27/2019. By clinical evaluation his disease appeared to be at least stage T3, N1, though FNA biopsy of periportal lymph node was negative. 2. 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 3. There was CT evidence of a right upper lobe spiculated pulmonary nodule, which was felt to be suspicious for neoplasm, but more likely second primary neoplasm rather than metastasis. 4. There was also a possible hepatic metastasis by CT. 5. He had marginal performance status with weight loss and declining activity tolerance. His other medical illnesses include: 6. Hypertension. 7. Hyperlipidemia. 8. Coronary artery disease with previous angioplasty/stent placement. 9. History of gout. 10. History of esophageal stricture with recent EGD/dilatation procedure. On 11/23/2019 he began neoadjuvant chemotherapy with gemcitabine/Abraxane. With the first cycle his day 15 treatment was delayed 1 week due to neutropenia. Other side effects included fatigue and mild nausea. He had mild musculoskeletal/neuropathy symptoms. He continued with cycle 2 of gmecitabine/Abraxane on 12/28/2019. His treatment was again put on hold at day 15 due to neutropenia. He then continued with cycle 3-day 1 treatment on 01/18/2020 and with cycle 3-day 8 treatment on 01/25/2020. He then became profoundly weak, and he received no further chemotherapy. On 02/27/2020 he underwent exploratory laparotomy with left pancreatectomy and splenectomy, splenic artery lymph node dissection, partial gastrectomy, and omental pedicle flap. Grossly there was no evidence of metastatic disease, but the stomach overlying the pancreatic mass was adherent to it with suspected invasion. Pathology showed residual poorly differentiated ductal adenocarcinoma with 1 mm retroperitoneal margin and with involvement of 2/14 lymph nodes. Final staging was ypT2, ypN1. On 04/09/2020 he began postoperative adjuvant chemotherapy with modified FOLFOX. He has had some fatigue and mild nausea with the 1st cycle, and he had some mild neuropathy symptoms. Overall, though, he tolerated it well. He was able to proceed with cycle 2 on 04/23/2020 and with cycle 3 on 05/07/2020. With cycle 3 was given Neulasta prophylactically for moderately severe neutropenia, ANC 1500. He did experience more significant toxicity following that treatment, including fatigue, nausea/anorexia, musculoskeletal pain, and increased neuropathy. He was able to continue with cycle 4 on 05/28/2020 and with cycle 5 on 06/11/2020. At that point he was having significant side effects with the chemotherapy, including fatigue, anorexia, and neuropathy. Restaging CT scans on 07/02/2020 showed almost complete resolution of the previously noted right upper lobe pulmonary nodule. There is a new metastatic lesion noted in the left hepatic lobe measuring 2.9 x 2.7 cm and there was a new filling defect noted in the left portal vein which appeared to be consistent with tumor thrombus. Given those findings, he was referred to Dr. Carpenter for liver directed therapy, which tentatively has been scheduled for next week. However, in the meantime, he has been feeling progressively worse with 2 weeks of watery diarrhea, increasing abdominal pain, and increasing weakness/fatigue. Plan: 1. He will be given IV hydration and antiemetics today and he will be scheduled to come in for additional IV hydration daily, as needed. 2. Stop Morphine for pain medication. Will try hydromorphone 4 mg every 4-6 hours. First dose given here in the clinic today. He will be given a written prescription for 2 mg 1 or 2 every 4-6 hours as needed pain. 3. Per Dr Carpenter, cancel his liver procedure for tomorrow .Hopefully we can schedule this for next week however if he continues to decline in his overall performance status Dr. Carpenter and Dr. Valadez have recommended hospice. 4. Repeat supportive care tomorrow. His labs from today indicate that his potassium is low at 3.2. Begin potassium replacement tomorrow as well. His magnesium has been normal. 5. We will plan to see him back tomorrow as scheduled for hydration and determine further plan of care from there as needed. For now he is receiving supportive care until he can gain strength or be referred to hospice. Signed By: Alyse Mirza-, AOCNP Saud Valadez MD <<Signature on File>>
--- NOTE | 2020-08-27 13:17 | MR_ITS ---
WS: [id number] MRI HEAD WITH CONTRAST TECHNIQUE: Sagittal T1, T2 axial, T2 axial FLAIR, axial susceptibility weighted imaging, axial diffus ion weighted images, and coronal T2 images were obtained. Pre and post-T1 axial and post T1 coronal i mages. ADC and FSPGR images. CLINICAL INFORMATION: METASTATIC PANCREATIC CA;CONFUSION,NAUSEA,ANOXERIA,WEAKNESS COMPARISON: None. FINDINGS: Multiple patchy foci of restricted diffusion involving the deep frontal parietal white matter as well as the parietal occipital junctions extending to the cortex in some areas. Additional tiny foci of r estricted diffusion involving the cerebellum bilaterally. Some of these areas demonstrate serpiginous enhancement consistent with subacute ischemia. Findings compatible with multiple foci of acute to mc bacute ischemia. Symmetric appearing distribution of infarcts in a watershed type distribution. Mild edema associated with the infarcts. No significant mass effect or midline shift. No hydrocephalus. No rmal optic chiasm and pituitary infundibulum. Normal cavernous sinuses and Meckel's cave. Normal dura l venous sinuses. Mild small vessel changes. Moderate parenchymal volume loss. Normal vascular flow voids at the skull base. No extra-axial fluid collections. Paranasal sinuses and mastoid air cells well aerated. MR/MR head wo/w con [id number] IMPRESSION: 1. Numerous foci of acute to subacute ischemia in the frontal parietal and occ ipital lobes in a watershed distribution. Additional tiny acute lacunar infarct s in the cerebellum bilaterally. 2. Serpiginous enhancement involving the subacute infarcts. . 3. No significant mass effect or midline shift. 4. No hydrocephalus. 5. No definite evidence of enhancing intracranial metastatic disease.
[2020-08-30] MEDS: sodium chloride 0.9% 1,000 ML 999 ML IV (09:45)
[2020-08-30] MEDS: sodium chloride 0.9% 1,000 ML 1000 ML IV (09:45)
[2020-08-30 11:40] VITALS: RESP 16
[2020-08-30] MEDS: HYDROmorphone 1 mg/mL INJ 1 mL 2 MG IV (11:40)
[2020-09-02] MEDS: sodium chloride 0.9% 1,000 ML 999 ML IV (13:04)
[2020-09-02 13:34] LABS: Ammonia 30 umol/L (16-60)
== END 2020-09-14 23:59 | disposition home or self-care (01) ==
LOC: ONCMED 12:34
PROVIDERS: Internal Medicine Medical Oncology; PCP Family Medicine; Visit Provider Nurse Practitioner
DX: E86.0 Dehydration (principal); C25.2 Malignant neoplasm of tail of pancreas; G89.3 Neoplasm related pain (acute) (chronic); R91.8 Other nonspecific abnormal finding of lung field; C77.2 Secondary and unspecified malignant neoplasm of intra-abdominal lymph nodes; C78.7 Secondary malignant neoplasm of liver and intrahepatic bile duct; R19.7 Diarrhea, unspecified; I10 Essential (primary) hypertension; E78.5 Hyperlipidemia, unspecified; I25.10 Atherosclerotic heart disease of native coronary artery without angina pectoris; F17.210 Nicotine dependence, cigarettes, uncomplicated; M10.9 Gout, unspecified; F10.20 Alcohol dependence, uncomplicated; Z79.899 Other long term (current) drug therapy; Z95.5 Presence of coronary angioplasty implant and graft; Z90.411 Acquired partial absence of pancreas; Z90.3 Acquired absence of stomach [part of]; Z92.21 Personal history of antineoplastic chemotherapy
CPT/HCPCS: 70553; 80053; 82140; 82378; 83735; 85025; 86301; 87493; 87506; 96360; 96361; 96365; 96366; 96367; 96372; 96374; 96375; 99214; A9579; J1100; J1170; J2405; J2469; J3480; J3490; J7030; J7040; J7050